=== PATIENT | male | born 1950 | race Caucasian/White ===

== ENCOUNTER 2021-07-03 20:02 | Inpatient (IN) | payer MEDICARE ==
[2021-07-03] MEDS ORDERED: SODIUM CHLORIDE 0.9% 1,000 ML IV STA (20:12)
--- NOTE | 2021-07-03 20:21 | ED ---
Syncope HPI - General Stated Complaint: Altered Mental Status Time Seen by Provider: 07/03/21 20:02 Source: patient, family, RN notes reviewed - History of Present Illness Initial Comments: 18-year-old male history of cardiomyopathy for which she's been treated at [facility] and was actually seen here today for who when he got home was noted by his to lean over to the left and become unconscious this lasted about 5 minutes with intermittent episodes of coming to. He denies any headache palpitations fevers chills nausea vomiting sweats no focal weakness. He does also denies ever having any episode like this before. Currently he is pain-free and symptom-free he was found by paramedics to be diaphoretic though awake alert oriented 3 he was incontinent of urine. Again the patient does not recall the incident. Patient's states he does have an abnormal EKG normally. MD Complaint: loss of consciousness - Related Data Home Medications Medication Instructions Recorded Confirmed Aspirin EC [Ecotrin Low Dose] 81 mg PO DAILY 07/03/21 07/03/21 Cholecalciferol [Vitamin D3 (25 25 mcg PO DAILY 07/03/21 07/03/21 Mcg = 1000 Iu)] Metoprolol Succinate [Toprol XL] 50 mg PO DAILY 07/03/21 07/03/21 Multivit-Min/FA/Lycopen/Lutein 1 tab PO DAILY 07/03/21 07/03/21 [Centrum Silver Men Tablet] [place]-3 Fatty Acids/Fish Oil [Fish 1 cap PO HS 07/03/21 07/03/21 Oil 1,000 mg Softgel] Omeprazole [PriLOSEC] 20 mg PO DAILY 07/03/21 07/03/21 Allergies Allergy/AdvReac Type Severity Reaction Status Date / Time No Known Allergies Allergy Verified 07/03/21 22:24 Review of Systems ROS Statement: Those systems with pertinent positive or pertinent negative responses have been documented in the HPI. ROS Other: All systems not noted in ROS Statement are negative. General Exam - General Exam Comments Initial Comments: This is a well-developed well-nourished awake alert oriented 3 male General appearance: alert, in no apparent distress Head exam: Present: atraumatic, normocephalic, normal inspection Eye exam: Present: normal appearance, PERRL, EOMI. Absent: scleral icterus, conjunctival injection, periorbital swelling ENT exam: Present: normal exam, mucous membranes moist Neck exam: Present: normal inspection, full ROM, other (No stridor JVD or bruits). Absent: tenderness, meningismus, lymphadenopathy Respiratory exam: Present: normal lung sounds bilaterally. Absent: respiratory distress, wheezes, rales, rhonchi, stridor Cardiovascular Exam: Present: regular rate, normal rhythm, normal heart sounds. Absent: systolic murmur, diastolic murmur, rubs, gallop, clicks GI/Abdominal exam: Present: soft, normal bowel sounds. Absent: distended, tenderness, guarding, rebound, rigid Extremities exam: Present: normal inspection, full ROM, normal capillary refill. Absent: tenderness, pedal edema, joint swelling, calf tenderness Back exam: Present: normal inspection Neurological exam: Present: alert, oriented X3, CN II-XII intact Psychiatric exam: Present: normal affect, normal mood Skin exam: Present: warm, dry, intact, normal color. Absent: rash Course Vital Signs 07/03/21 07/03/21 07/03/21 20:08 20:22 21:19 Temperature 98.0 F Pulse Rate 87 86 90 Respiratory 20 19 20 Rate Blood Pressure 118/83 113/74 108/68 O2 Sat by Pulse 97 98 98 Oximetry EKG Findings - EKG Results: EKG: interpreted by GUILLERMINA, sinus rhythm (Sinus rhythm rate 85. Interval 204 QRS duration 138 QT/QTC 407/449 LVH interventricular conduction delay old septal changes. No old EKG for comparison) Medical Decision Making - Medical Decision Making I did a long discussion with the patient and family were present patient is been asymptomatic since arrival other than he did state he felt somewhat dizzy when he was horizontal in the CAT scan machine. Patient will be admitted I did discuss the case with Dr. Fleming. Patient will be seen in consult by cardiology as well as neurology. - Lab Data Result diagrams: 07/03/21 20:15 07/03/21 20:15 Lab Results 07/03/21 07/03/21 07/03/21 Range/Units 20:15 20:15 20:15 WBC 9.2 (3.8-10.6) k/uL RBC 4.35 (4.30-5.90) m/uL Hgb 13.7 (13.0-17.5) gm/dL Hct 40.3 (39.0-53.0) % MCV 92.7 (80.0-100.0) fL MCH 31.4 (25.0-35.0) pg MCHC 33.9 (31.0-37.0) g/dL RDW 13.0 (11.5-15.5) % Plt Count 141 L (150-450) k/uL MPV 9.6 Neutrophils % 73 % Lymphocytes % 16 % Monocytes % 6 % Eosinophils % 2 % Basophils % 1 % Neutrophils # 6.7 (1.3-7.7) k/uL Lymphocytes # 1.4 (1.0-4.8) k/uL Monocytes # 0.6 (0-1.0) k/uL Eosinophils # 0.2 (0-0.7) k/uL Basophils # 0.1 (0-0.2) k/uL PT 10.3 (9.0-12.0) sec INR 0.9 (<1.2) APTT 22.0 (22.0-30.0) sec D-Dimer 1.09 H (<0.60) mg/L FEU Sodium 137 (137-145) mmol/L Potassium 4.0 (3.5-5.1) mmol/L Chloride 107 (98-107) mmol/L Carbon Dioxide 24 (22-30) mmol/L Anion Gap 6 mmol/L BUN 14 (9-20) mg/dL Creatinine 0.77 (0.66-1.25) mg/dL Est GFR (CKD-EPI)AfAm >90 (>60 ml/min/1.73 sqM) Est GFR (CKD-EPI)NonAf >90 (>60 ml/min/1.73 sqM) Glucose 125 H (74-99) mg/dL POC Glucose (mg/dL) (75-99) mg/dL POC Glu Quality Facilitator ID Calcium 8.0 L (8.4-10.2) mg/dL Magnesium 2.3 (1.6-2.3) mg/dL Total Bilirubin 0.7 (0.2-1.3) mg/dL AST 128 H (17-59) U/L ALT 100 H (4-49) U/L Alkaline Phosphatase 85 (38-126) U/L Troponin I (0.000-0.034) ng/mL NT-Pro-B Natriuret Pep pg/mL Total Protein 5.8 L (6.3-8.2) g/dL Albumin 3.2 L (3.5-5.0) g/dL TSH 3.250 (0.465-4.680) mIU/L 07/03/21 07/03/21 07/03/21 Range/Units 20:15 20:15 20:17 WBC (3.8-10.6) k/uL RBC (4.30-5.90) m/uL Hgb (13.0-17.5) gm/dL Hct (39.0-53.0) % MCV (80.0-100.0) fL MCH (25.0-35.0) pg MCHC (31.0-37.0) g/dL RDW (11.5-15.5) % Plt Count (150-450) k/uL MPV Neutrophils % % Lymphocytes % % Monocytes % % Eosinophils % % Basophils % % Neutrophils # (1.3-7.7) k/uL Lymphocytes # (1.0-4.8) k/uL Monocytes # (0-1.0) k/uL Eosinophils # (0-0.7) k/uL Basophils # (0-0.2) k/uL PT (9.0-12.0) sec INR (<1.2) APTT (22.0-30.0) sec D-Dimer (<0.60) mg/L FEU Sodium (137-145) mmol/L Potassium (3.5-5.1) mmol/L Chloride (98-107) mmol/L Carbon Dioxide (22-30) mmol/L Anion Gap mmol/L BUN (9-20) mg/dL Creatinine (0.66-1.25) mg/dL Est GFR (CKD-EPI)AfAm (>60 ml/min/1.73 sqM) Est GFR (CKD-EPI)NonAf (>60 ml/min/1.73 sqM) Glucose (74-99) mg/dL POC Glucose (mg/dL) 116 H (75-99) mg/dL POC Glu Quality Facilitator ID Rebekah Hair Calcium (8.4-10.2) mg/dL Magnesium (1.6-2.3) mg/dL Total Bilirubin (0.2-1.3) mg/dL AST (17-59) U/L ALT (4-49) U/L Alkaline Phosphatase (38-126) U/L Troponin I 0.038 H* (0.000-0.034) ng/mL NT-Pro-B Natriuret Pep 3860 pg/mL Total Protein (6.3-8.2) g/dL Albumin (3.5-5.0) g/dL TSH (0.465-4.680) mIU/L - Radiology Data Radiology results: report reviewed (No PE seen), image reviewed Critical Care Time Critical Care Time: Yes Total Critical Care Time: 31 Critical Care Time: Critical care time includes initial presentation with history physical labs x- rays multiple reevaluation the patient several discussed with family members. Discussion with the admitting physician admission orders documentation the above Disposition Clinical Impression: Syncope and collapse, Elevated d-dimer, Elevated troponin, Cardiomyopathy Disposition: ADMITTED IP TO THIS [facility] Condition: Fair Referrals: Nonstaff,Physician [Primary Care Provider] - 1-2 days
[2021-07-03 20:30] LABS: Glucose,Whole Blood 116 mg/dL (75-99)
[2021-07-03 20:34] LABS: Basophils # (A) 0.1 k/uL (0-0.2); Basophils % (A) 1 %; Eosinophils # (A) 0.2 k/uL (0-0.7); Eosinophils % (A) 2 %; HCT 40.3 % (39.0-53.0); HGB 13.7 gm/dL (13.0-17.5); Lymphocytes # (A) 1.4 k/uL (1.0-4.8); Lymphocytes % (A) 16 %; MCH 31.4 pg (25.0-35.0); MCHC 33.9 g/dL (31.0-37.0); MCV 92.7 fL (80.0-100.0); Mean Platelet Volume 9.6; Monocytes # (A) 0.6 k/uL (0-1.0); Monocytes % (A) 6 %; Neutrophils # (A) 6.7 k/uL (1.3-7.7); Neutrophils % (A) 73 %; Platelet Count 141 k/uL (150-450); RBC 4.35 m/uL (4.30-5.90); WBC 9.2 k/uL (3.8-10.6)
[2021-07-03 20:48] LABS: ALT 100 U/L (4-49); AST 128 U/L (17-59); African American GFR (CKD) >90 (>60 ml/min/1.73 sqM); Albumin 3.2 g/dL (3.5-5.0); Alkaline Phosphatase 85 U/L (38-126); Anion Gap 6 mmol/L; Blood Urea Nitrogen 14 mg/dL (9-20); Carbon Dioxide 24 mmol/L (22-30); Chloride 107 mmol/L (98-107); Glucose 125 mg/dL (74-99); Magnesium 2.3 mg/dL (1.6-2.3); Non-African American GFR(CKD) >90 (>60 ml/min/1.73 sqM); Sodium 137 mmol/L (137-145); Total Bilirubin 0.7 mg/dL (0.2-1.3); Total Protein 5.8 g/dL (6.3-8.2)
[2021-07-03 20:52] LABS: INR 0.9 (<1.2); Prothrombin Time 10.3 sec (9.0-12.0)
--- NOTE | 2021-07-03 20:54 | CT ---
EXAMINATION TYPE: CT brain wo con CT DLP: 1186.4 mGycm, Automated exposure control for dose reduction was used. DATE OF EXAM: 07/03/2021 8:41 PM COMPARISON: None. CLINICAL INDICATION:Male, 71 years old with history of syncope, TECHNIQUE: Brain: Multiple axial CT images of the brain were obtained without IV contrast. FINDINGS: Brain: Extra-axial spaces: No abnormal extra-axial fluid collections. Ventricular system: Within normal limits Cerebral parenchyma: No acute intraparenchymal hemorrhage or mass effect. The william-white junction is well differentiated. Cerebellum: Unremarkable. Mass effect: No evidence of midline shift. Intracranial vasculature: Atherosclerotic calcifications of the intracranial vessels. Soft tissues: Normal. Calvarium/osseous structures: No depressed skull fracture. Paranasal sinuses and mastoid air cells: Clear. Visualized orbits: Orbital contents are intact. IMPRESSION: No acute intracranial process.
--- NOTE | 2021-07-03 20:56 | XR ---
EXAMINATION TYPE: XR chest 2V DATE OF EXAM: 07/03/2021 8:42 PM COMPARISON:None TECHNIQUE: XR chest 2V Frontal and lateral views of the chest. CLINICAL INDICATION:Male, 71 years old with history of syncope; FINDINGS: Lungs/Pleura: No evidence of focal consolidation or pneumothorax. Blunting of the costophrenic angles is present. Pulmonary vascularity: Pulmonary vascular congestion. Heart/mediastinum: Cardiomediastinal silhouette is enlarged . Musculoskeletal: No acute osseous pathology. IMPRESSION: Cardiomegaly and mild pulmonary vascular congestion. Correlate with BNP for congestive heart failure.
--- NOTE | 2021-07-03 22:14 | CT ---
EXAMINATION TYPE: CT angio chest CT DLP: 500.6 mGycm, Automated exposure control for dose reduction was used. DATE OF EXAM: 07/03/2021 10:06 PM COMPARISON: Chest radiograph from same day. CLINICAL INDICATION:Male, 71 years old with history of E suspected, elevated d-dimer; elevated d-dime r TECHNIQUE/CONTRAST: CTA scan of the thorax is performed with IV Contrast, patient injected with 100 mL of Isovue 370, pul monary embolism protocol. MIP images are created and reviewed. FINDINGS: Pulmonary Artery: There is no evidence for a filling defect within the pulmonary vasculature to sugge st acute pulmonary embolism. The pulmonary artery is enlarged measuring 39 mm. Lungs/Pleura: No evidence of focal consolidation, pleural effusion or pneumothorax. Airway: Large airways are patent. Heart: The heart is moderately enlarged for size. Vasculature: No evidence of aortic aneurysm. Mediastinum: No gross evidence of adenopathy. Musculoskeletal: No acute osseous abnormalities Soft Tissues: Unremarkable. Lower neck: 11 mm thyroid nodule on the left. Upper Abdomen: No significant findings. IMPRESSION: 1. No evidence of pulmonary embolism. 2. Large pulmonary trunk which may seen in setting of pulmonary hypertension.
[2021-07-03] MEDS ORDERED: ONDANSETRON 4 MG/2 ML VIAL IVP PRN (22:29)
[2021-07-03] MEDS ORDERED: NALOXONE 0.4 MG/ML 1 ML VIAL IV PRN (22:29)
[2021-07-03] MEDS ORDERED: ACETAMINOPHEN TAB 325 MG TAB PO PRN (22:29)
[2021-07-03] MEDS ORDERED: HEPARIN SODIUM 1,000 UN/ML (10ML VL) IV ONE (22:33)
[2021-07-03] MEDS ORDERED: HEPARIN SOD,PORK IN 0.45% NACL 25,000 UNIT in 0.45% NACL 1 250ML.BAG IV SCH (22:45)
[2021-07-03] MEDS: SODIUM CHLORIDE 0.9% 1,000 ML IV SCH (22:56)
[2021-07-03 23:57] LABS: Partial Thromboplastin Time 56.7 sec (22.0-30.0); Prothrombin Time 11.1 sec (9.0-12.0)
[2021-07-04 00:25] LABS: Basophils % (A) 0 %; Eosinophils % (A) 0 %; HGB 14.3 gm/dL (13.0-17.5); Lymphocytes # (A) 0.9 k/uL (1.0-4.8); Lymphocytes % (A) 9 %; MCH 30.9 pg (25.0-35.0); MCHC 33.2 g/dL (31.0-37.0); Mean Platelet Volume 9.6; Monocytes # (A) 0.5 k/uL (0-1.0); Monocytes % (A) 5 %; Neutrophils # (A) 8.6 k/uL (1.3-7.7); Neutrophils % (A) 84 %; Platelet Count 141 k/uL (150-450); RBC 4.62 m/uL (4.30-5.90); RDW 12.9 % (11.5-15.5); WBC 10.3 k/uL (3.8-10.6)
--- NOTE | 2021-07-04 01:29 | P.HPIM ---
History of Present Illness H&P Date: 07/04/21 Patient is a 71-year-old male with a PMH of hypertrophic obstructive cardiomyopathy who presented to the emergency room after an episode of syncope at home. The patient reports that he was in his usual state of health and was sitting on his couch watching television with his when he suddenly felt lightheaded, and the next thing he knew he woke up on the ground. The episode was witnessed by the reported that he suddenly slumped over in the couch lost consciousness. She reports he appeared blue and pale, although would open his eyes intermittently and look at her and then closes eyes again and was unresponsive. She immediately called EMS who advised her to lay the patient on the ground. The patient did not suffer any falls or injuries as a result of his loss of consciousness. The episode lasted roughly 5 minutes. The patient experienced urinary incontinence. Denied tongue bites with no reported shacking movements. The patient denied experiencing prodromal chest discomfort, palpitations, nausea, or shortness of breath. No post ictal confusion was noted. As per the EMS, the patient was diaphoretic but was alert and oriented 3. Patient reported feeling back at his baseline at the time of interview. He denied any history of loss of consciousness. Patient reports that he was seen at [facility] cardiovascular surgery earlier today due to his worsening obstructive cardiomyopathy. At the time of interview, the patient denied experiencing chest discomfort, palpitations, shortness of breath, nausea, vomiting, diaphoresis, fever, chills, cough, abdominal pain, diarrhea. Laboratory evaluation was remarkable for platelet count 141, d-dimer 1.09, troponin 0.038, and a proBNP 3860. Chest CTA revealed no signs of pulmonary embolism. CT brain was unremarkable. Review of systems: Pertinent positives and negatives as discussed in HPI, a complete review of systems was performed and all other systems are negative. Physical examination: General: non toxic, no distress, appears at stated age, normal weight Derm: no unusual rashes/lesions no unusual ecchymoses, warm, dry Head: atraumatic, normocephalic, symmetric Eyes: EOMI, no lid lag, anicteric sclera, pupils equal round reactive to light ENT: Nose and ears atraumatic, no thrush, no pharyngeal erythema Neck: No thyromegaly, no cervical lymphadenopathy, trachea midline, supple Mouth: no lip lesion, mucus membranes moist Cardiovascular: S1S2 reg, systolic murmur appreciated, positive posterior tibial pulse bilateral, no edema, capillary refill less than 2 seconds Lungs: CTA bilateral, no rhonchi, no rales , no accessory muscle use Abdominal: soft, nontender to palpation, no guarding, no appreciable organomegaly, normal bowel sounds Ext: no gross muscle atrophy, muscle strength 5 out of 5 in all 4 extremities grossly, no contractures, Neuro: CN II-XI grossly intact, light touch intact all 4 extremities, finger to nose within normal limits, Psych: Alert, oriented, appropriate affect Assessment/plan Syncope, in setting of HOCM with elevated troponin -The case was discussed with cardiology on-call Dr. Rivas who recommended heparin infusion -Discussed the case with [facility] transfer eminence who noted that they are not currently accepting transfers -Low suspicion for seizure -Cardiac monitoring -Cardiology consulted -Trend troponin -Continue aspirin -Fall precautions Thrombocytopenia -Monitor for now DVT prophylaxis -Heparin infusion The patient is admitted with an anticipated greater than 2 midnight stay for evaluation of syncope CODE STATUS: Full Code Discussed with: Patient Anticipated discharge date: 2-[address]: Home Past Medical History Past Medical History: Hypertension, Osteoarthritis (OA) Additional Past Medical History / Comment(s): pt was at [facility] today with thickening left heart wall-Cardiomyopathy for the past 10 years approx. Last US was new finding, and they did a MRI. 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 with [facility] History of Any Multi-Drug Resistant Organisms: None Reported Past Surgical History: Hernia Repair Additional Past Surgical History / Comment(s): spinal fusion 1999, Past Psychological History: No Psychological Hx Reported Smoking Status: Former smoker Past Alcohol Use History: Daily, Occasional Past Drug Use History: None Reported - Past Family History Father Family Medical History: Hyperlipidemia Medications and Allergies Home Medications Medication Instructions Recorded Confirmed Type Aspirin EC [Ecotrin Low Dose] 81 mg PO DAILY 07/03/21 07/03/21 History Cholecalciferol [Vitamin D3 (25 25 mcg PO DAILY 07/03/21 07/03/21 History Mcg = 1000 Iu)] Metoprolol Succinate [Toprol XL] 50 mg PO DAILY 07/03/21 07/03/21 History Multivit-Min/FA/Lycopen/Lutein 1 tab PO DAILY 07/03/21 07/03/21 History [Centrum Silver Men Tablet] [place]-3 Fatty Acids/Fish Oil [Fish 1 cap PO HS 07/03/21 07/03/21 History Oil 1,000 mg Softgel] Omeprazole [PriLOSEC] 20 mg PO DAILY 07/03/21 07/03/21 History Allergies Allergy/AdvReac Type Severity Reaction Status Date / Time No Known Allergies Allergy Verified 07/03/21 22:24 Physical Exam Vitals: Vital Signs Temp Pulse Resp BP Pulse Ox 07/03/21 23:02 86 17 146/83 95 07/03/21 21:19 90 20 108/68 98 07/03/21 20:22 86 19 113/74 98 07/03/21 20:08 98.0 F 87 20 118/83 97 Intake and Output 07/03/21 07/03/21 07/04/21 14:59 22:59 06:59 Other: Weight 95.254 kg Results CBC & Chem 7: 07/03/21 23:23 07/03/21 20:15 Labs: Abnormal Lab Results - Last 24 Hours (Table) 07/03/21 07/03/21 07/03/21 Range/Units 20:15 20:15 20:15 Plt Count 141 L (150-450) k/uL Neutrophils # (1.3-7.7) k/uL Lymphocytes # (1.0-4.8) k/uL APTT (22.0-30.0) sec D-Dimer 1.09 H (<0.60) mg/L FEU Glucose 125 H (74-99) mg/dL POC Glucose (mg/dL) (75-99) mg/dL Calcium 8.0 L (8.4-10.2) mg/dL AST 128 H (17-59) U/L ALT 100 H (4-49) U/L Troponin I (0.000-0.034) ng/mL Total Protein 5.8 L (6.3-8.2) g/dL Albumin 3.2 L (3.5-5.0) g/dL 07/03/21 07/03/21 07/03/21 Range/Units 20:15 20:17 23:23 Plt Count 141 L (150-450) k/uL Neutrophils # 8.6 H (1.3-7.7) k/uL Lymphocytes # 0.9 L (1.0-4.8) k/uL APTT (22.0-30.0) sec D-Dimer (<0.60) mg/L FEU Glucose (74-99) mg/dL POC Glucose (mg/dL) 116 H (75-99) mg/dL Calcium (8.4-10.2) mg/dL AST (17-59) U/L ALT (4-49) U/L Troponin I 0.038 H* (0.000-0.034) ng/mL Total Protein (6.3-8.2) g/dL Albumin (3.5-5.0) g/dL 07/03/21 07/03/21 Range/Units 23:23 23:23 Plt Count (150-450) k/uL Neutrophils # (1.3-7.7) k/uL Lymphocytes # (1.0-4.8) k/uL APTT 56.7 H (22.0-30.0) sec D-Dimer (<0.60) mg/L FEU Glucose (74-99) mg/dL POC Glucose (mg/dL) (75-99) mg/dL Calcium (8.4-10.2) mg/dL AST (17-59) U/L ALT (4-49) U/L Troponin I 0.164 H* (0.000-0.034) ng/mL Total Protein (6.3-8.2) g/dL Albumin (3.5-5.0) g/dL
[2021-07-04 04:50] LABS: Basophils # (A) 0.1 k/uL (0-0.2); Basophils % (A) 1 %; Eosinophils # (A) 0.1 k/uL (0-0.7); Eosinophils % (A) 1 %; HCT 40.1 % (39.0-53.0); HGB 13.3 gm/dL (13.0-17.5); Lymphocytes # (A) 1.2 k/uL (1.0-4.8); Lymphocytes % (A) 16 %; MCH 30.9 pg (25.0-35.0); MCHC 33.1 g/dL (31.0-37.0); MCV 93.4 fL (80.0-100.0); Mean Platelet Volume 9.5; Monocytes # (A) 0.5 k/uL (0-1.0); Monocytes % (A) 7 %; Neutrophils # (A) 5.4 k/uL (1.3-7.7); Neutrophils % (A) 73 %; Platelet Count 132 k/uL (150-450); WBC 7.5 k/uL (3.8-10.6)
[2021-07-04 05:00] LABS: INR 0.9 (<1.2); Prothrombin Time 10.3 sec (9.0-12.0)
[2021-07-04] MEDS: HEPARIN SODIUM 1,000 UN/ML (10ML VL) IV PRN ×2 (05:34→12:36)
[2021-07-04] MEDS: PANTOPRAZOLE 40 MG TABLET PO SCH (06:13)
[2021-07-04 06:34] LABS: Appearance,Urine Clear (Clear); Bilirubin,Urine Negative (Negative); Blood,Urine Negative (Negative); Color,Urine Yellow; Glucose,Urine (UA) Negative (Negative); Ketones,Urine Trace (Negative); Leukocyte Esterase,Urine Negative (Negative); Nitrite,Urine Negative (Negative); Protein,Urine Negative (Negative); Specific Gravity,Urine 1.027 (1.001-1.035); Urobilinogen,Urine <2.0 mg/dL (<2.0)
[2021-07-04] MEDS: MULTIVITAMINS, THERA 1 EACH TAB PO SCH (08:31)
[2021-07-04] MEDS: ASPIRIN 81 MG PO SCH (08:31)
[2021-07-04] MEDS: CHOLECALCIFEROL 25 MCG (1000 IU) TABLET PO SCH (08:31)
[2021-07-04] MEDS: SODIUM CHLORIDE 0.9% 1,000 ML IV SCH (08:34)
[2021-07-04] MEDS ORDERED: METOPROLOL SUCCINATE (ER) 50 MG TAB.ER.24H PO SCH (09:00)
--- NOTE | 2021-07-04 13:15 | US ---
EXAMINATION TYPE: US carotid duplex BILAT DATE OF EXAM: 07/04/2021 COMPARISON: NONE CLINICAL HISTORY: syncope. Syncope EXAM MEASUREMENTS: RIGHT: Peak Systolic Velocity (PSV) cm/sec ----- Right CCA: 64.7 ----- Right ICA: 83.4 ----- Right ECA: 103.4 ICA/CCA ratio: 1.3 RIGHT: End Diastole cm/sec ----- Right CCA: 17.5 ----- Right ICA: 31.8 ----- Right ECA: 15.4 LEFT: Peak Systolic Velocity (PSV) cm/sec ----- Left CCA: 85.3 ----- Left ICA: 99.5 ----- Left ECA: 96.9 ICA/CCA ratio: 1.2 LEFT: End Diastole cm/sec ----- Left CCA: 25.8 ----- Left ICA: 40.0 ----- Left ECA: 12.8 VERTEBRALS (direction of flow): Right Vertebral: Antegrade Left Vertebral: Antegrade Rhythm: Normal No significant stenosis seen IMPRESSION: Less than 50% stenosis of the bilateral carotid bifurcations. Criteria for Assigning % of Stenosis / Diameter reduction (Estimation based on the indirect measurements of the internal carotid artery velocities (ICA PSV). 1. Normal (no stenosis)=ICA PSV < 125 cm/s: ratio < 2.0: ICA EDV<40 cm/s. 2. Less than 50% stenosis=ICA PSV < 125 cm/s: ratio < 2.0: ICA EDV<40 cm/s. 3. 50 to 69% stenosis=ICA PSV of 125 to 230 cm/s: ration 2.0 ? 4.0: ICA EDV 40-100 cm/s. 4. Greater than 70% stenosis to near occlusion= ICA PSV > 230 cm/s: ratio > 4.0: ICA EDV > 100 cm/s. 5. Near occlusion= ICA PSV velocities may be low or undetectable: variable ratio and ICA EDV. 6. Total occlusion=unable to detect flow.
[2021-07-04] MEDS ORDERED: METOPROLOL SUCCINATE (ER) 50 MG TAB.ER.24H PO STA (15:46)
--- NOTE | 2021-07-04 15:46 | P.CRDCN ---
History of Present Illness History of present illness: HISTORY OF PRESENTING ILLNESS Patient is a pleasant 71-year-old male with history of hypertrophic obstructive cardiomyopathy diagnosed approximately 12 years ago, normal coronary arteries by heart catheterization 12 years ago per patient, syncope. Patient previously followed with Dr. Aguayo in [facility] however then started following with a new doctor. He was initially diagnosed 12 years ago and had workup at the time with normal heart catheterization. He did have screening workup with an echo performed approximately a few months ago which showed worsening gradient apparently and therefore recommendation for cardiac MRI which was performed to afford and again showed worsening of the degree of obstruction. Therefore he was recommended to see a surgeon from [facility] which she did 07/03. Surgeon discussed myomectomy however also [facility] medical therapy with a "new drug", likely mavacamtem. Patient drove home and then was sitting on his couch watching TV when he suddenly started feeling lightheaded and apparently became blue and unresponsive and therefore EMS was called. Patient apparently did not recall any events until he woke up with EMS around him. He denies any preceding chest pain, pressure, palpitations. He denies any dehydration or any changes to medications. He initially denied any recent symptoms however on further discussion with the son he has had a number of episodes where he will suddenly become lightheaded. No prior similar episode of syncope. EKG shows normal sinus rhythm with LVH with nonspecific ST abnormalities. Echo performed which shows EF 60% with LVOT gradient with a mean gradient >56. Troponin mildly elevated 0.03, 0.16, 0.09. ProBNP elevated at 3860. REVIEW OF SYSTEMS At the time of my exam: CONSTITUTIONAL: Denies fever or chills. CARDIOVASCULAR: Denies chest pain, shortness of breath, orthopnea, PND or palpitations. RESPIRATORY: Denies cough. GASTROINTESTINAL: Denies abdominal pain, diarrhea, constipation, nausea or vomiting. MUSCULOSKELETAL: Denies myalgias. NEUROLOGIC: Denies numbness, tingling or weakness. ENDOCRINE: Denies fatigue, weight change, polydipsia or polyurina. GENITOURINARY: Denies burning, hematuria or urgency with micturation. HEMATOLOGIC: Denies history of anemia or bleeding. PHYSICAL EXAMINATION Vital signs reviewed. CONSTITUTIONAL: No apparent distress. HEENT: Head is normocephalic. Pupils are equal, round. Sclerae anicteric. Mucous membranes of the mouth are moist. No JVD. No carotid bruit. CHEST EXAMINATION: Lungs are clear to auscultation. No chest wall tenderness is noted on palpation or with deep breathing. HEART EXAMINATION: Regular rate and rhythm. S1, S2 heard. +3/6 systolic murmur, no gallops or rub. ABDOMEN: Soft, nontender. Positive bowel sounds. EXTREMITIES: 2+ peripheral pulses, no lower extremity edema and no calf tenderness. NEUROLOGIC EXAMINATION: Patient is awake, alert and oriented x3. ASSESSMENT 1. Syncope appears related to hypertrophic obstructive cardiomyopathy. Less likely arrhythmogenic given progression of symptoms and progression of LVOT gradient 2. Hypertrophic obstructive cardiomyopathy with mean gradient 56mmHg 3. Increasing episodes of lightheadedness last few months 4. Elevated troponin related to hypertrophic cardiomyopathy, syncope, outflow obstruction. Do not suspect ACS with normal coronary angiogram 12 years ago and no angina symptoms. 5. LVOT obstruction with mean gradient 56mmHg PLAN Patient's symptoms all appear related to his LVOT obstruction and hypertrophic cardiomyopathy. Unexplained syncope is an indication for AICD however syncope appears related to LVOT obstruction. He has been an workup for possible myomectomy at [facility]. We will increase his medications, increase Toprol to 100 mg daily as well as add disopyramide 100mg TID. Monitor QTc tomorrow. We will attempt to place patient on increased medical therapy and if able to tolerate, likely DC home with outpt followup at [facility]. Patient scheduled for followup with [facility] child care teacher for possible addition of Mavacamten which does have newer data for HOCM. Past Medical History Past Medical History: Hypertension, Osteoarthritis (OA) Additional Past Medical History / Comment(s): pt was at [facility] today with thickening left heart wall-Cardiomyopathy for the past 10 years approx. Last US was new finding, and they did a MRI. Pt is supposed to follow with child care teacher with [facility] History of Any Multi-Drug Resistant Organisms: None Reported Past Surgical History: Hernia Repair Additional Past Surgical History / Comment(s): spinal fusion 1999 Past Psychological History: No Psychological Hx Reported Smoking Status: Former smoker Past Alcohol Use History: Daily, Occasional Past Drug Use History: None Reported - Past Family History Father Family Medical History: Hyperlipidemia Medications and Allergies Home Medications Medication Instructions Recorded Confirmed Type Aspirin EC [Ecotrin Low Dose] 81 mg PO DAILY 07/03/21 07/03/21 History Cholecalciferol [Vitamin D3 (25 25 mcg PO DAILY 07/03/21 07/03/21 History Mcg = 1000 Iu)] Metoprolol Succinate [Toprol XL] 50 mg PO DAILY 07/03/21 07/03/21 History Multivit-Min/FA/Lycopen/Lutein 1 tab PO DAILY 07/03/21 07/03/21 History [Centrum Silver Men Tablet] [place]-3 Fatty Acids/Fish Oil [Fish 1 cap PO HS 07/03/21 07/03/21 History Oil 1,000 mg Softgel] Omeprazole [PriLOSEC] 20 mg PO DAILY 07/03/21 07/03/21 History Allergies Allergy/AdvReac Type Severity Reaction Status Date / Time No Known Allergies Allergy Verified 07/03/21 22:24 Physical Exam Vitals: Vital Signs Temp Pulse Pulse Resp BP BP Pulse Ox 07/04/21 12:00 97.8 F 71 16 137/81 96 07/04/21 08:30 97.8 F 73 16 132/77 97 07/04/21 04:00 73 16 118/70 96 07/04/21 02:28 97.7 F 81 18 144/92 97 07/04/21 01:08 97.5 F L 78 20 123/74 98 07/03/21 23:02 86 17 146/83 95 07/03/21 21:19 90 20 108/68 98 07/03/21 20:22 86 19 113/74 98 07/03/21 20:08 98.0 F 87 20 118/83 97 Intake and Output 07/04/21 07/04/21 07/04/21 06:59 14:59 22:59 Intake Total 66 90.428 Balance 66 90.428 Intake: Intake, IV Titration 66 90.428 Amount Heparin Sod,Pork in 0.45% 66 90.428 NaCl 25,000 unit In 0.45 % NaCl 1 250ml.bag @ 10. 4982 UNITS/KG/HR 10 mls/ hr IV .Q24H [facility] Rx#: [id number] Other: Voiding Method Urinal # Voids 1 3 Weight 94.2 kg Results 07/04/21 04:06 07/03/21 20:15 Cardiac Enzymes 07/03/21 07/03/21 07/03/21 Range/Units 20:15 20:15 23:23 AST 128 H (17-59) U/L Troponin I 0.038 H* 0.164 H* (0.000-0.034) ng/mL 07/04/21 Range/Units 04:06 AST (17-59) U/L Troponin I 0.093 H* (0.000-0.034) ng/mL Coagulation 07/03/21 07/03/21 07/04/21 Range/Units 20:15 23:23 04:06 PT 10.3 11.1 10.3 (9.0-12.0) sec APTT 22.0 56.7 H 30.0 (22.0-30.0) sec 07/04/21 Range/Units 11:41 PT (9.0-12.0) sec APTT 35.8 H (22.0-30.0) sec CBC 07/03/21 07/03/21 07/04/21 Range/Units 20:15 23:23 04:06 WBC 9.2 10.3 7.5 (3.8-10.6) k/uL RBC 4.35 4.62 4.30 (4.30-5.90) m/uL Hgb 13.7 14.3 13.3 (13.0-17.5) gm/dL Hct 40.3 43.0 40.1 (39.0-53.0) % Plt Count 141 L 141 L 132 L (150-450) k/uL Comprehensive Metabolic Panel 07/03/21 Range/Units 20:15 Sodium 137 (137-145) mmol/L Potassium 4.0 (3.5-5.1) mmol/L Chloride 107 (98-107) mmol/L Carbon Dioxide 24 (22-30) mmol/L BUN 14 (9-20) mg/dL Creatinine 0.77 (0.66-1.25) mg/dL Glucose 125 H (74-99) mg/dL Calcium 8.0 L (8.4-10.2) mg/dL AST 128 H (17-59) U/L ALT 100 H (4-49) U/L Alkaline Phosphatase 85 (38-126) U/L Total Protein 5.8 L (6.3-8.2) g/dL Albumin 3.2 L (3.5-5.0) g/dL Current Medications Generic Name Dose Route Start Last Admin Trade Name Freq PRN Reason Stop Dose Admin Acetaminophen 650 mg 07/03/21 22:29 Acetaminophen Tab 325 Mg Tab PO Q6HR PRN Mild Pain or Fever > 100.5 Aspirin 81 mg 07/04/21 09:00 07/04/21 08:31 Aspirin 81 Mg PO 81 mg DAILY SCOTT Administration Cholecalciferol 25 mcg 07/04/21 09:00 07/04/21 08:31 Cholecalciferol 25 Mcg (1000 Iu) Tablet PO 25 mcg DAILY SCOTT Administration Sodium Chloride 1,000 mls @ 75 mls/hr 07/03/21 22:30 07/04/21 08:34 Saline 0.9% IV 75 mls/hr .[id number] SCOTT Administration Metoprolol Succinate 50 mg 07/04/21 09:00 07/04/21 08:31 Metoprolol Succinate (Er) 50 Mg Tab.Er.24h PO 50 mg DAILY SCOTT Administration Multivitamins 1 each 07/04/21 09:00 07/04/21 08:31 Multivitamins, Thera 1 Each Tab PO 1 each DAILY SCOTT Administration Naloxone HCl 0.2 mg 07/03/21 22:29 Naloxone 0.4 Mg/Ml 1 Ml Vial IV Q2M PRN Opioid Reversal Ondansetron HCl 4 mg 07/03/21 22:29 Ondansetron 4 Mg/2 Ml Vial IVP Q8HR PRN Nausea And Vomiting Pantoprazole Sodium 40 mg 07/04/21 07:30 07/04/21 06:13 Pantoprazole 40 Mg Tablet PO 40 mg [id number] SCOTT Administration Intake and Output 07/04/21 07/04/21 07/04/21 06:59 14:59 22:59 Intake Total 66 90.428 Balance 66 90.428 Intake: Intake, IV Titration 66 90.428 Amount Heparin Sod,Pork in 0.45% 66 90.428 NaCl 25,000 unit In 0.45 % NaCl 1 250ml.bag @ 10. 4982 UNITS/KG/HR 10 mls/ hr IV .Q24H [facility] Rx#: [id number] Other: Voiding Method Urinal # Voids 1 3 Weight 94.2 kg 07/04/21 04:06 07/03/21 20:15
[2021-07-04] MEDS ORDERED: DISOPYRAMIDE 100 MG PO SCH (16:00)
[2021-07-04 16:12] LABS: Glucose,Whole Blood 125 mg/dL (75-99)
[2021-07-04] MEDS ORDERED: AMIODARONE IN DEXTROSE,ISO-OSM 150 MG/100 ML PLAST..BAG IV ONE (16:29)
[2021-07-04] MEDS ORDERED: DEXTROSE 5% IN WATER 100 ML with AMIODARONE 150 MG IV ONE (16:40)
[2021-07-04] MEDS ORDERED: AMIODARONE 360 MG in DEXTROSE 5% IN WATER 200 ML IV ONE ×2 (16:50)
--- NOTE | 2021-07-04 17:23 | P.CNNES ---
History of Present Illness Consult date: 07/04/21 Requesting physician: Cj Tanner Reason for Consult: Syncope History of Present Illness: This is a telemedicine neurology consultation performed today on 07/04/2021. Patient is a 71-year-old male came to the hospital by ambulance yesterday at 8:02 PM. Patient states that "I passed out watching TV". Patient states that he does remember telling his while watching TV "oh my God I am dizzy" and within a few seconds he passed out, and the next thing he remembers is waking up on the floor, and EMS people around him. Per patient's , he was out for just a few seconds, open the eyes and was opening his mouth very wide repetitively, although not jerking. She did not notice any convulsion, or seizure-like activity. No tongue bite although he didn't lose control of urine. He appeared real pale and was very sweaty at that time. it took almost 10 minutes for EMS to arrive. According to the EMS flow sheet, when they arrived patient was laying on the floor, slow to respond to questions. stated that he passed out also find had to get him to ground and open his airway. He still did not respond to her when she got him to the floor. Patient started to respond after a few minutes. He was sweaty and confused. Patient was at [facility] the same day for hypertropic obstructive cardiomyopathy. No new medication was added. Patient never has any history of syncopal episodes. Patient's denied any seizure activity. Stroke scale was negative. Patient's mentioned that his face was frozen when he came to. There was no facial droop or slurred speech. Patient denied chest pain. Patient was given aspirin 324 mg. Patient denied dizziness, headache or shortness of breath. Patient's blood pressure was 134/82, pulse 81, respirations 16 and saturation 96%. EKG shows atrial fibrillation. Patient had a CT of the head which revealed no acute intracranial process. CTA of the chest showed no evidence of pulmonary embolism. Large pulmonary trunk which may seen in setting of pulmonary hypertension. EKG shows sinus rhythm, intraventricular conduction delay. Chest x-ray showed cardiomegaly and mild pulmonary vascular congestion. Correlate with BNP for congestive heart failure. Blood test shows normal CBC PT/PTT, Chem-7. AST is elevated 128, ALP 100. Troponin is mildly elevated. TSH is normal. UA negative, coronal virus PCR negative. Patient at present feels fine. Patient has never passed out before. He has diagnosis of hypertrophic obstructive cardio myopathy for 10 years. No previous history of atrial fibrillation. Patient does take aspirin 81 mg daily for 10 years. No history of seizure or head trauma. He is a nonsmoker. He smoked 1 pack per day for 20 years, quit in 1989. Denies diabetes. Review of Systems As mentioned above in detail. All other 14 points of review of systems reviewed unremarkable. Past Medical History Past Medical History: Hypertension, Osteoarthritis (OA) Additional Past Medical History / Comment(s): pt was at [facility] today with thickening left heart wall-Cardiomyopathy for the past 10 years approx. Last US was new finding, and they did a MRI. Pt is supposed to follow with dip guider stoves with [facility] History of Any Multi-Drug Resistant Organisms: None Reported Past Surgical History: Hernia Repair Additional Past Surgical History / Comment(s): spinal fusion 1999 Past Psychological History: No Psychological Hx Reported Smoking Status: Former smoker Past Alcohol Use History: Daily, Occasional Past Drug Use History: None Reported - Past Family History Father Family Medical History: Hyperlipidemia Medications and Allergies Home Medications Medication Instructions Recorded Confirmed Type Aspirin EC [Ecotrin Low Dose] 81 mg PO DAILY 07/03/21 07/03/21 History Cholecalciferol [Vitamin D3 (25 25 mcg PO DAILY 07/03/21 07/03/21 History Mcg = 1000 Iu)] Metoprolol Succinate [Toprol XL] 50 mg PO DAILY 07/03/21 07/03/21 History Multivit-Min/FA/Lycopen/Lutein 1 tab PO DAILY 07/03/21 07/03/21 History [Centrum Silver Men Tablet] [place]-3 Fatty Acids/Fish Oil [Fish 1 cap PO HS 07/03/21 07/03/21 History Oil 1,000 mg Softgel] Omeprazole [PriLOSEC] 20 mg PO DAILY 07/03/21 07/03/21 History Allergies Allergy/AdvReac Type Severity Reaction Status Date / Time No Known Allergies Allergy Verified 07/03/21 22:24 Physical Examination - Vital Signs Vital Signs: Vital Signs Temp Pulse Pulse Resp BP BP Pulse Ox 07/04/21 08:30 97.8 F 73 16 132/77 97 07/04/21 04:00 73 16 118/70 96 07/04/21 02:28 97.7 F 81 18 144/92 97 07/04/21 01:08 97.5 F L 78 20 123/74 98 07/03/21 23:02 86 17 146/83 95 07/03/21 21:19 90 20 108/68 98 07/03/21 20:22 86 19 113/74 98 07/03/21 20:08 98.0 F 87 20 118/83 97 Intake and Output 07/03/21 07/04/21 07/04/21 22:59 06:59 14:59 Intake Total 66 Balance 66 Intake: Intake, IV Titration 66 Amount Heparin Sod,Pork in 0.45% 66 NaCl 25,000 unit In 0.45 % NaCl 1 250ml.bag @ 10. 4982 UNITS/KG/HR 10 mls/ hr IV .Q24H [facility] Rx#: [id number] Other: Voiding Method Urinal # Voids 1 3 Weight 95.254 kg 94.2 kg Patient is an elderly male, in no acute distress. Patient is alert, awake oriented to time place and person. Speech and language functions are normal. Attention, concentration and fund of knowledge is adequate. On cranial examination, pupils are round and reacting to light, visual yost are full on confrontation, extraocular muscles are intact with no nystagmus. Face is symmetric, tongue protrudes to the midline. Palatal elevation and sensation normal, hearing and shoulder shrug normal, facial sensation normal. Shoulder shrug normal. On muscle strength testing, there is no pronator drift and the strength is normal in arms and legs distally and proximally. Deep tendon reflexes are 1 in the upper limbs, trace at the knees, 0 ankles and plantars are withdrawal. Sensory to touch is equal with no neglect. Cerebellar function showed no ataxia for [id number] testing. No dysdiadochokinesia. Tone and bulk of muscles normal. Gait not checked. On general examination, there is no carotid bruit or murmur, S1-S2 audible. Abdomen is soft nontender. Chest is clear. Peripheral pulses are present. No edema. Results - Laboratory Findings CBC and BMP: 07/04/21 04:06 07/03/21 20:15 Abnormal Lab Findings: Abnormal Labs 07/03/21 07/03/21 07/03/21 20:15 20:15 20:15 Plt Count 141 L Neutrophils # Lymphocytes # APTT D-Dimer 1.09 H Glucose 125 H POC Glucose (mg/dL) Calcium 8.0 L AST 128 H ALT 100 H Troponin I Total Protein 5.8 L Albumin 3.2 L Urine Ketones 07/03/21 07/03/21 07/03/21 20:15 20:17 23:23 Plt Count 141 L Neutrophils # 8.6 H Lymphocytes # 0.9 L APTT D-Dimer Glucose POC Glucose (mg/dL) 116 H Calcium AST ALT Troponin I 0.038 H* Total Protein Albumin Urine Ketones 07/03/21 07/03/21 07/04/21 23:23 23:23 04:06 Plt Count Neutrophils # Lymphocytes # APTT 56.7 H D-Dimer Glucose POC Glucose (mg/dL) Calcium AST ALT Troponin I 0.164 H* 0.093 H* Total Protein Albumin Urine Ketones 07/04/21 07/04/21 04:06 06:15 Plt Count 132 L Neutrophils # Lymphocytes # APTT D-Dimer Glucose POC Glucose (mg/dL) Calcium AST ALT Troponin I Total Protein Albumin Urine Ketones Trace H Assessment and Plan Assessment: * Syncopal spell, likely due to history of hypertrophic obstructive cardiomyopathy versus arrhythmia. Seizure, less likely, no convulsive activity was noted. * History of hypertrophic obstructive cardiomyopathy * New onset atrial fibrillation documented by EMS. * Hyperlipidemia * Hypertension Plan: * We will perform carotid Doppler to rule out carotid stenosis. It was comp leted, revealed less than 50% stenosis bilateral ICA. Antegrade flow in both vertebral arteries. * No other neurological workup indicated. * Cardiology following. * Regarding new onset atrial fibrillation, would defer to IM and cardiology, regarding need for anticoagulation. * Neurology will sign off. Please reconsult neurology if any other concerns.
[2021-07-04] MEDS ORDERED: NON FORMULARY DRUG (Omega-3 Fatty Acids/Fish Oil [Fish Oil 1,000 Mg Softgel] 1 EACH Capsul PO SCH (21:00)
[2021-07-04] MEDS: AMIODARONE 450 MG in DEXTROSE 5% IN WATER 250 ML IV SCH ×2 (22:43)
[2021-07-05] MEDS: SODIUM CHLORIDE 0.9% 1,000 ML IV SCH ×3 (03:20→23:49)
[2021-07-05] MEDS: PANTOPRAZOLE 40 MG TABLET PO SCH (06:36)
[2021-07-05 08:20] LABS: Basophils # (A) 0.1 k/uL (0-0.2); Basophils % (A) 1 %; Eosinophils # (A) 0.1 k/uL (0-0.7); Eosinophils % (A) 1 %; HCT 42.2 % (39.0-53.0); Lymphocytes % (A) 10 %; MCH 31.2 pg (25.0-35.0); MCHC 33.2 g/dL (31.0-37.0); MCV 94.2 fL (80.0-100.0); Mean Platelet Volume 8.6; Monocytes # (A) 0.5 k/uL (0-1.0); Monocytes % (A) 5 %; Neutrophils % (A) 82 %; Platelet Count 202 k/uL (150-450); RBC 4.48 m/uL (4.30-5.90); RDW 13.2 % (11.5-15.5); WBC 9.7 k/uL (3.8-10.6)
[2021-07-05] MEDS: METOPROLOL SUCCINATE (ER) 100 MG TAB.ER.24H PO SCH (08:32)
[2021-07-05] MEDS: MULTIVITAMINS, THERA 1 EACH TAB PO SCH (08:32)
[2021-07-05] MEDS: CHOLECALCIFEROL 25 MCG (1000 IU) TABLET PO SCH (08:32)
[2021-07-05] MEDS: ASPIRIN 81 MG PO SCH ×2 (08:32→16:54)
--- NOTE | 2021-07-05 08:38 | ECHOF ---
Referral Reason:Cardiomyopathy, syncope MEASUREMENTS -------- HEIGHT: 180.3 cm WEIGHT: 93.9 kg BP: 118/70 RVIDd: 3.3 cm (< 3.3) IVSd: 2.2 cm (0.6 - 1.1) LVIDd: 5.0 cm (3.9 - 5.3) LVPWd: 2.1 cm (0.6 - 1.1) IVSs: 2.4 cm LVIDs: 3.2 cm LVPWs: 2.8 cm LA Diam: 3.9 cm (2.7 - 3.8) LAESV Index (A-L): 57.62 ml/m Ao Diam: 3.8 cm (2.0 - 3.7) AV Cusp: 3.0 cm (1.5 - 2.6) MV EXCURSION: 16.790 mm (> 18.000) MV EF SLOPE: 20 mm/s (70 - 150) EPSS: 0.4 cm MV E Nick: 1.01 m/s MV DecT: 326 ms MV A Nick: 0.99 m/s MV E/A Ratio: 1.02 AV maxP.53 mmHg AV meanP.83 mmHg AR PHT: 910 ms RAP: 5.00 mmHg RVSP: 39.01 mmHg FINDINGS -------- Sinus rhythm. This was a technically adequate study. The left ventricular size is normal. There is severe concentric left ventricular hypertrophy. Lef t ventricular systolic function is hyperdynamic with an estimated EF of >70%. DALTON present The right ventricle is mildly enlarged. LA is severely dilated >40 ml/m2 The right atrium is normal in size. Interatrial and interventricular septum intact. The aortic valve is trileaflet and appears structurally normal. There is mild aortic regurgitation. LVOT obstruction with mean gradient of 41 mm/Hg and max gradient of 91 mmHg The mitral valve leaflets are mildly thickened. There is trace to mild mitral regurgitation. Mild tricuspid regurgitation present. There is mild pulmonary hypertension. The right ventricular systolic pressure, as measured by Doppler, is 39.01mmHg. The pulmonic valve was not well visualized. The aortic root is dilated measuring 3.8cm. Normal inferior vena cava with normal inspiratory collapse consistent with estimated right atrial pre ssure of 5 mmHg. There is no pericardial effusion. CONCLUSIONS -------- 1. The left ventricular size is normal. 2. There is severe concentric left ventricular hypertrophy. 3. Left ventricular systolic function is hyperdynamic with an estimated EF of >70%. 4. DALTON present 5. The right ventricle is mildly enlarged. 6. LA is severely dilated >40 ml/m2 7. The aortic valve is trileaflet and appears structurally normal. 8. There is mild aortic regurgitation. 9. LVOT obstruction with mean gradient of 41 mm/Hg and max gradient of 91 mmHg 10. The mitral valve leaflets are mildly thickened. 11. There is trace to mild mitral regurgitation. 12. Mild tricuspid regurgitation present. 13. There is mild pulmonary hypertension. 14. The right ventricular systolic pressure, as measured by Doppler, is 39.01mmHg. 15. The aortic root is dilated measuring 3.8cm. 16. There is no pericardial effusion. [employer]: Yazmin Orozco RDCS
--- NOTE | 2021-07-05 09:20 | P.PN ---
Subjective Progress Note Date: 07/05/21 Principal diagnosis: Patient is a 71-year-old male with a PMH of hypertrophic obstructive cardiomyopathy who presented to the emergency room after an episode of syncope at home. The patient reports that he was in his usual state of health and was sitting on his couch watching television with his when he suddenly felt lightheaded, and the next thing he knew he woke up on the ground. The episode was witnessed by the reported that he suddenly slumped over in the couch lost consciousness. She reports he appeared blue and pale, although would open his eyes intermittently and look at her and then closes eyes again and was unresponsive. She immediately called EMS who advised her to lay the patient on the ground. The patient did not suffer any falls or injuries as a result of his loss of consciousness. The episode lasted roughly 5 minutes. The patient experienced urinary incontinence. Denied tongue bites with no reported shacking movements. The patient denied experiencing prodromal chest discomfort, palpitations, nausea, or shortness of breath. No post ictal confusion was noted. As per the EMS, the patient was diaphoretic but was alert and oriented 3. Patient reported feeling back at his baseline at the time of interview. He denied any history of loss of consciousness. Patient reports that he was seen at [facility] cardiovascular surgery earlier today due to his worsening obstructive cardiomyopathy. At the time of interview, the patient denied experiencing chest discomfort, palpitations, shortness of breath, nausea, vomiting, diaphoresis, fever, chills, cough, abdominal pain, diarrhea. Laboratory evaluation was remarkable for platelet count 141, d-dimer 1.09, troponin 0.038, and a proBNP 3860. Chest CTA revealed no signs of pulmonary embolism. CT brain was unremarkable. Interval history: Patient is an eczematous type. He denies any chest pain or shortness of breath. Patient another episode of syncope in the hospital around 4 PM yesterday. Telemetry showed evidence of sustained V. tach. Patient was started on IV amiodarone per cardiology. He denies any chest pain shortness breath today Objective - Vital Signs Vital signs: Vital Signs Temp 98.1 F 07/04/21 20:00 Pulse 75 07/05/21 03:51 Resp 17 07/05/21 03:51 BP 157/85 07/05/21 03:51 Pulse Ox 95 07/05/21 03:51 Intake & Output 07/04/21 07/05/21 07/05/21 18:59 06:59 18:59 Intake Total 90.428 300 Output Total 1 1400 Balance 89.428 -1100 Intake: Intake, IV Titration 90.428 Amount Heparin Sod,Pork in 0.45% 90.428 NaCl 25,000 unit In 0.45 % NaCl 1 250ml.bag @ 10. 4982 UNITS/KG/HR 10 mls/ hr IV .Q24H [facility] Rx#: [id number] Oral 300 Output: Urine 1 1400 Other: Voiding Method Urinal # Voids 3 - Exam General: non toxic, no distress, appears at stated age Derm: warm, dry Head: atraumatic, normocephalic, symmetric Eyes: EOMI, no lid lag, anicteric sclera Mouth: no lip lesion, mucus membranes moist Cardiovascular: S1S2 reg, no murmur, positive posterior tibial pulse bilateral, Lungs: CTA bilateral, no rhonchi, no rales , no accessory muscle use Abdominal: soft, nontender to palpation, no guarding, no appreciable organomegaly Ext: no gross muscle atrophy, no edema, no contractures Neuro: CN II-XI grossly intact, no focal neuro deficits Psych: Alert, oriented, appropriate affect - Labs CBC & Chem 7: 07/05/21 08:06 07/03/21 20:15 Labs: Abnormal Lab Results - Last 24 Hours (Table) 07/04/21 07/04/21 07/05/21 Range/Units 11:41 16:10 08:06 Neutrophils # 8.0 H (1.3-7.7) k/uL APTT 35.8 H (22.0-30.0) sec POC Glucose (mg/dL) 125 H (75-99) mg/dL Assessment and Plan Assessment: #Syncope 2 #Ventricular tachycardia -And sitting off hypertrophic obstructive cardiomyopathy. -Cardiology following -Carotid Doppler without significant stenosis -Amiodarone drip per cardiology -Cardiology increased Toprol to 100 mg daily and added disopyramide 100mg TID. -To consider elective surgical consultation for general cardiology -Continue telemetry -Check magnesium level #Hypertrophic obstructive cardiomyopathy with mean gradient 56mmHg -#LVOT obstruction with mean gradient 56mmHg #Elevated troponin -related to hypertrophic cardiomyopathy, syncope, outflow obstruction. Do not suspect ACS with normal coronary angiogram 12 years ago and no angina symptoms. #DVT prophylaxis with subcu Lovenox
[2021-07-05 09:56] LABS: ALT 68 U/L (4-49); AST 29 U/L (17-59); African American GFR (CKD) >90 (>60 ml/min/1.73 sqM); Albumin 3.4 g/dL (3.5-5.0); Alkaline Phosphatase 60 U/L (38-126); Anion Gap 4 mmol/L; Blood Urea Nitrogen 10 mg/dL (9-20); Calcium 8.8 mg/dL (8.4-10.2); Carbon Dioxide 26 mmol/L (22-30); Chloride 106 mmol/L (98-107); Glucose 133 mg/dL (74-99); Magnesium 2.3 mg/dL (1.6-2.3); Non-African American GFR(CKD) 89 (>60 ml/min/1.73 sqM); Potassium 4.2 mmol/L (3.5-5.1); Sodium 136 mmol/L (137-145); Total Bilirubin 0.6 mg/dL (0.2-1.3); Total Protein 6.2 g/dL (6.3-8.2)
[2021-07-05] MEDS: ENOXAPARIN 40 MG/0.4 ML SYRINGE SQ SCH (10:27)
[2021-07-05] MEDS: AMIODARONE 450 MG in DEXTROSE 5% IN WATER 250 ML IV SCH ×2 (12:40)
--- NOTE | 2021-07-05 15:03 | P.PN ---
Subjective HISTORY OF PRESENTING ILLNESS Patient is a pleasant 71-year-old male with history of hypertrophic obstructive cardiomyopathy diagnosed approximately 12 years ago, normal coronary arteries by heart catheterization 12 years ago per patient, syncope. Patient previously followed with Dr. Aguayo in [facility] however then started following with a new doctor. He was initially diagnosed 12 years ago and had workup at the time with normal heart catheterization. He did have screening workup with an echo performed approximately a few months ago which showed worsening gradient apparently and therefore recommendation for cardiac MRI which was performed to afford and again showed worsening of the degree of obstruction. Therefore he was recommended to see a surgeon from [facility] which she did 07/03. Surgeon discussed myomectomy however also referral to waiter/waitress informal for possible medical therapy with a "new drug", likely mavacamtem. Patient drove home and then was sitting on his couch watching TV when he suddenly started feeling lightheaded and apparently became blue and unresponsive and therefore EMS was called. Patient apparently did not recall any events until he woke up with EMS around him. He denies any preceding chest pain, pressure, palpitations. He denies any dehydration or any changes to medications. He initially denied any recent symptoms however on further discussion with the son he has had a number of episodes where he will suddenly become lightheaded. No prior similar episode of syncope. EKG shows normal sinus rhythm with LVH with nonspecific ST abnormalities. Echo performed which shows EF 60% with LVOT gradient with a mean gradient >56. Troponin mildly elevated 0.03, 0.16, 0.09. ProBNP elevated at 3860. 07/05 Patient seen and examined. Patient had episode yesterday of sustained ventricular tachycardia with heart rate 220-240 with loss of consciousness. He spontaneously converted back to sinus rhythm. This was before any medications were given. He was placed on amiodarone drip and no further episodes since. He was also increased on his metoprolol. PHYSICAL EXAMINATION Vital signs reviewed. CONSTITUTIONAL: No apparent distress. HEENT: Head is normocephalic. Pupils are equal, round. Sclerae anicteric. Mucous membranes of the mouth are moist. No JVD. No carotid bruit. CHEST EXAMINATION: Lungs are clear to auscultation. No chest wall tenderness is noted on palpation or with deep breathing. HEART EXAMINATION: Regular rate and rhythm. S1, S2 heard. +3/6 systolic murmur, no gallops or rub. ABDOMEN: Soft, nontender. Positive bowel sounds. EXTREMITIES: 2+ peripheral pulses, no lower extremity edema and no calf tenderness. NEUROLOGIC EXAMINATION: Patient is awake, alert and oriented x3. ASSESSMENT 1. Syncope related to VT 2. Hypertrophic obstructive cardiomyopathy with mean gradient 56mmHg 3. Increasing episodes of lightheadedness last few months 4. Elevated troponin likely related to hypertrophic cardiomyopathy, syncope, outflow obstruction. Do not suspect ACS with normal coronary angiogram 12 years ago and no angina symptoms. 5. LVOT obstruction with mean gradient 56mmHg 6. 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 We will check heart catheterization first to rule out any underlying CAD compounding VT Otherwise continue amiodarone loading and increased dose of beta alicia. Goal would be to place AICD and stabilized patient and then monitor symptoms on increased dose of beta alicia. If patient is still having symptoms as an outpatient, he would follow-up with [facility] waiter/waitress informal for possible addition of Mavacamten or further evaluation of myomectomy Objective - Vital Signs Vital signs: Vital Signs Temp 98.5 F 07/05/21 12:24 Pulse 64 07/05/21 12:24 Resp 18 07/05/21 12:24 BP 129/79 07/05/21 12:24 Pulse Ox 98 07/05/21 12:24 Intake & Output 07/04/21 07/05/21 07/05/21 18:59 06:59 18:59 Intake Total 90.428 300 832.505 Output Total 1 1400 Balance 89.428 -1100 832.505 Intake: Intake, IV Titration 90.428 832.505 Amount Amiodarone 450 mg In 232.505 Dextrose 5% in Water 250 ml @ 0.5 MG/MIN 16.667 mls/hr IV .Q15H [facility] Rx#: [id number] Heparin Sod,Pork in 0.45% 90.428 NaCl 25,000 unit In 0.45 % NaCl 1 250ml.bag @ 10. 4982 UNITS/KG/HR 10 mls/ hr IV .Q24H [facility] Rx#: [id number] Sodium Chloride 0.9% 1, 600 000 ml @ 75 mls/hr IV . [id number] [facility] Rx#:[id number] Oral 300 Output: Urine 1 1400 Other: Voiding Method Urinal # Voids 3 - Labs CBC & Chem 7: 07/05/21 08:06 07/05/21 08:06 Labs: Abnormal Lab Results - Last 24 Hours (Table) 07/04/21 07/05/21 07/05/21 Range/Units 16:10 08:06 08:06 Neutrophils # 8.0 H (1.3-7.7) k/uL Sodium 136 L (137-145) mmol/L Glucose 133 H (74-99) mg/dL POC Glucose (mg/dL) 125 H (75-99) mg/dL ALT 68 H (4-49) U/L Total Protein 6.2 L (6.3-8.2) g/dL Albumin 3.4 L (3.5-5.0) g/dL
[2021-07-05] MEDS: AMIODARONE 200 MG TAB PO SCH ×2 (16:38→23:46)
[2021-07-05] MEDS ORDERED: ALPRAZolam 0.5 MG TAB PO PRN (16:44)
[2021-07-05] MEDS ORDERED: NITROGLYCERIN SL TABS 0.4 MG TAB SUBLINGUAL PRN (16:44)
[2021-07-05] MEDS ORDERED: ALPRAZolam 0.25 MG TAB PO PRN (16:44)
[2021-07-05] MEDS ORDERED: SODIUM CHLORIDE 0.9% 1,000 ML IV SCH (18:00)
[2021-07-06] MEDS ORDERED: ASPIRIN 325 MG TAB PO ONE (05:00)
[2021-07-06] MEDS ORDERED: ATORVASTATIN 80 MG TAB PO ONE (05:00)
[2021-07-06 06:28] LABS: Glucose,Whole Blood 105 mg/dL (75-99)
[2021-07-06] MEDS: PANTOPRAZOLE 40 MG TABLET PO SCH (06:41)
[2021-07-06] MEDS ORDERED: HEPARIN SODIUM,PORCINE 10,000 UNIT in SODIUM CHLORIDE 0.9% 1,000 ML IRRIGATION PRN (07:00)
[2021-07-06] MEDS ORDERED: HEPARIN SODIUM,PORCINE 2,500 UNIT in SODIUM CHLORIDE 0.9% 250 ML IRRIGATION PRN (07:00)
[2021-07-06] MEDS: METOPROLOL SUCCINATE (ER) 100 MG TAB.ER.24H PO SCH (08:12)
[2021-07-06] MEDS: MULTIVITAMINS, THERA 1 EACH TAB PO SCH (08:13)
[2021-07-06] MEDS: CHOLECALCIFEROL 25 MCG (1000 IU) TABLET PO SCH (08:13)
[2021-07-06] MEDS: AMIODARONE 200 MG TAB PO SCH ×2 (08:13→21:32)
[2021-07-06 08:56] LABS: Basophils # (A) 0.1 k/uL (0-0.2); Basophils % (A) 1 %; Eosinophils # (A) 0.1 k/uL (0-0.7); Eosinophils % (A) 1 %; HCT 44.4 % (39.0-53.0); HGB 14.4 gm/dL (13.0-17.5); Lymphocytes # (A) 1.2 k/uL (1.0-4.8); Lymphocytes % (A) 12 %; MCH 30.6 pg (25.0-35.0); MCHC 32.3 g/dL (31.0-37.0); MCV 94.8 fL (80.0-100.0); Mean Platelet Volume 8.1; Monocytes # (A) 0.5 k/uL (0-1.0); Monocytes % (A) 5 %; Neutrophils # (A) 7.6 k/uL (1.3-7.7); Neutrophils % (A) 79 %; Platelet Count 246 k/uL (150-450); RBC 4.69 m/uL (4.30-5.90); RDW 13.7 % (11.5-15.5); WBC 9.7 k/uL (3.8-10.6)
--- NOTE | 2021-07-06 10:46 | P.PN ---
Subjective Principal diagnosis: Patient is a 71-year-old male with a PMH of hypertrophic obstructive cardiomyopathy who presented to the emergency room after an episode of syncope at home. The patient reports that he was in his usual state of health and was sitting on his couch watching television with his when he suddenly felt lightheaded, and the next thing he knew he woke up on the ground. The episode was witnessed by the reported that he suddenly slumped over in the couch lost consciousness. She reports he appeared blue and pale, although would open his eyes intermittently and look at her and then closes eyes again and was unresponsive. She immediately called EMS who advised her to lay the patient on the ground. The patient did not suffer any falls or injuries as a result of his loss of consciousness. The episode lasted roughly 5 minutes. The patient experienced urinary incontinence. Denied tongue bites with no reported shacking movements. The patient denied experiencing prodromal chest discomfort, palpitations, nausea, or shortness of breath. No post ictal confusion was noted. As per the EMS, the patient was diaphoretic but was alert and oriented 3. Patient reported feeling back at his baseline at the time of interview. He denied any history of loss of consciousness. Patient reports that he was seen at [facility] cardiovascular surgery earlier today due to his worsening obstructive cardiomyopathy. At the time of interview, the patient denied experiencing chest discomfort, palpitations, shortness of breath, nausea, vomiting, diaphoresis, fever, chills, cough, abdominal pain, diarrhea. Laboratory evaluation was remarkable for platelet count 141, d-dimer 1.09, troponin 0.038, and a proBNP 3860. Chest CTA revealed no signs of pulmonary embolism. CT brain was unremarkable. Interval history: patient was seen and examined at the bedside. He denies any chest pain or shortness of breath. No reported acute changes overnight Objective - Vital Signs Vital signs: Vital Signs Temp 97.7 F 07/06/21 08:10 Pulse 76 07/06/21 08:10 Resp 18 07/06/21 08:10 BP 156/83 07/06/21 08:10 Pulse Ox 96 07/06/21 08:10 Intake & Output 07/05/21 07/06/21 07/06/21 18:59 06:59 18:59 Intake Total 950.505 Output Total 700 Balance 950.505 -700 Weight 93.395 kg Intake: Intake, IV Titration 832.505 Amount Amiodarone 450 mg In 232.505 Dextrose 5% in Water 250 ml @ 0.5 MG/MIN 16.667 mls/hr IV .Q15H [facility] Rx#: [id number] Sodium Chloride 0.9% 1, 600 000 ml @ 75 mls/hr IV . [id number] [facility] Rx#:[id number] Oral 118 Output: Urine 700 Other: Voiding Method Toilet Urinal # Voids 1 - Exam General: non toxic, no distress, appears at stated age Derm: warm, dry Head: atraumatic, normocephalic, symmetric Eyes: EOMI, no lid lag, anicteric sclera Mouth: no lip lesion, mucus membranes moist Cardiovascular: S1S2 reg, no murmur, positive posterior tibial pulse bilateral, Lungs: CTA bilateral, no rhonchi, no rales , no accessory muscle use Abdominal: soft, nontender to palpation, no guarding, no appreciable organ omegaly Ext: no gross muscle atrophy, no edema, no contractures Neuro: CN II-XI grossly intact, no focal neuro deficits Psych: Alert, oriented, appropriate affect - Labs CBC & Chem 7: 07/06/21 08:36 07/05/21 08:06 Labs: Abnormal Lab Results - Last 24 Hours (Table) 07/06/21 Range/Units 06:27 POC Glucose (mg/dL) 105 H (75-99) mg/dL Assessment and Plan Assessment: #Syncope 2 #Ventricular tachycardia -And sitting off hypertrophic obstructive cardiomyopathy. -Cardiology following -cardiology plan for left heart cath. today. -Carotid Doppler without significant stenosis -Amiodarone drip per cardiology -Cardiology increased Toprol to 100 mg daily and added disopyramide 100mg TID. -electrophysiology consultedfor AICD -Continue telemetry -Check magnesium level #Hypertrophic obstructive cardiomyopathy with mean gradient 56mmHg -#LVOT obstruction with mean gradient 56mmHg #Elevated troponin -related to hypertrophic cardiomyopathy, syncope, outflow obstruction. Do not suspect ACS with normal coronary angiogram 12 years ago and no angina symptoms. #DVT prophylaxis with subcu Lovenox
[2021-07-06] MEDS ORDERED: LIDOCAINE 1% INJ 10MG/ML (20 ML MDV) ONE (13:20)
[2021-07-06] MEDS ORDERED: VERAPAMIL 2.5 MG/ML 2 ML AMP ONE (13:20)
[2021-07-06] MEDS ORDERED: fentaNYL (PF) 50 MCG/ML 2 ML AMP ONE (13:44)
[2021-07-06] MEDS ORDERED: fentaNYL (PF) 50 MCG/ML 2 ML AMP IV ONE (13:51)
[2021-07-06] MEDS ORDERED: MIDAZOLAM 2 MG/2 ML VIAL IV ONE (13:51)
[2021-07-06] MEDS ORDERED: LIDOCAINE 1% INJ 10MG/ML (20 ML MDV) SQ ONE (13:52)
[2021-07-06] MEDS ORDERED: VERAPAMIL SYRINGE (5 MG/10 ML) INTRAARTER ONE (13:55)
[2021-07-06] MEDS ORDERED: IV FLUID CONTINUATION 900 ML IV ONE (13:56)
[2021-07-06] MEDS ORDERED: HEPARIN SODIUM 1,000 UN/ML (10ML VL) ONE (14:02)
[2021-07-06] MEDS ORDERED: HEPARIN SODIUM 1,000 UN/ML (10ML VL) IV ONE (14:03)
[2021-07-06] MEDS ORDERED: IOPAMIDOL-370 125ML BTL INJ ONE (14:03)
--- NOTE | 2021-07-06 14:15 | P.CARDCATH ---
Description of Procedure: PROCEDURES PERFORMED: Left heart catheterization, bilateral coronary angiography INDICATION: Syncope, non-STEMI, ventricular tachycardia HISTORY: Patient is pleasant 71-year-old male with history of hypertrophic obstructive cardiomyopathy who presented secondary syncopal episode. He has been having increased gradients from his hypertrophic cardiomyopathy and has been evaluated at [facility] for possible myomectomy CONSENT:I have discussed the risks, benefits and alternative therapies for the above-mentioned procedure and for both sedation/analgesia as well as necessary blood product administration, if indicated, as they pertain to this patient. The patient has indicated understanding and acceptance of the risks and procedures discussed. PROCEDURE: After the risks, benefits and alternatives of the above mentioned procedure explained in detail with the patient, informed consent was obtained. Patient was taken to the catheterization lab and prepped and draped in usual fashion. 1% lidocaine was used to anesthetize the right radial artery. A 6- Togolese sheath was placed in the right radial artery using modified Seldinger technique. Left coronary angiography was performed with a 5-Togolese JL 3.5 catheter and right coronary angiography was performed with a 5-Togolese JR5 catheter in various views. A 5-Togolese FR5 catheter was inserted into the left ventricle and pressure measurements were obtained. The right radial sheath was removed and a TR band was placed with hemostasis achieved. The patient tolera elena the procedure well. Patient was transported back to the post catheterization holding area in stable condition. Conscious Sedation: Patient was monitored under the direct supervision of vision of myself for conscious sedation using Versed and fentanyl for a total duration of 13 minutes HEMODYNAMICS: Aorta: 108/69 LV: Systolic 184 at the apex with pullback gradient to 105/7, LVEDP 26. LVOT gradient of 79mmHg peak to peak SELECTIVE CORONARY ARTERIOGRAPHY: LEFT MAIN: The left main is a large caliber vessel which bifurcates into the LAD and circumflex. There is no significant stenosis. LEFT ANTERIOR DESCENDING CORONARY ARTERY: LAD is a large caliber vessel which wraps around to the apex. There is no significant stenosis. LEFT CIRCUMFLEX CORONARY ARTERY: Left circumflex is a moderate caliber vessel without significant stenosis. RIGHT CORONARY ARTERY: The right coronary artery is a large caliber vessel which gives off a PDA and PLV branch and is the dominant vessel. There is no significant stenosis. FINAL IMPRESSION: 1. Normal coronary arteries as described above. 2. Elevated left sided filling pressures 3. Peak to peak resting LVOT gradient of 79mmHg PLAN: 1. Aggressive risk factor modification per most recent ACC/AHA guidelines.
--- NOTE | 2021-07-06 16:59 | P.EPCON ---
Electrophysiology Consult - EP Consult Electrophysiology Consult: This is Dr. Mcguire dictating an EP consult on this patient The patient was interviewed and examined IMPRESSION / ASSESSMENT: Syncope while sitting, Known hypertrophic cardio myopathy with severe LVH, abnormal ECG with inverted T waves in the lateral precordial and high lateral leads Wall thickness is greater than 2.2 cm in the septal Dilated left atrium, systolic anterior motion anterior mitral leaflet but without any significant MR Documented ventricular arrhythmia in the hospital PLAN: Maximize long-acting beta blockers Also initiate Mavacamten for LVOT obstruction Continue amiodarone by mouth loading Recommend ICD implantation for secondary prevention of sudden cardiac Proceed with surgical myomectomy HPI 71-year-old male patient with a history of cardio myopathy being evaluated for a septal myomectomy at [facility] Patient was sitting on his couch watching TV, became lightheaded, became blue and unresponsive witnessed an episode of unconsciousness that lasted for about 5 minutes He has never experienced such an episode before ROS: No fever chills or rigors, no cough, phlegm or expectoration, no nausea, vomiting or diarrhea, no hematuria, dysuria, no musculoskeletal complaints, no strokes or seizures, no skin lesions. EXAMINATION: Pulse rate in the 70s, temperature normal Blood pressure 157/85 and 145/70 mmHg Ejection systolic murmur over the left precordial area No JVD Clear lungs No S3 gallop Abdomen soft Extremities are warm REVIEW OF LABS, ECG & MEDICAL DATA Home medications reviewed and include metoprolol succinate 50 mg by mouth daily and a baby aspirin Labs reviewed Normal white count Hemoglobin 14 Normal electrolytes Normal renal function Mildly Abnormal cardiac enzymes with a rise and fall pattern of 0.09, 0.[address] of the chest: No evidence for pulmonary embolism Known hypertrophic cardio myopathy Twelve-lead EKG shows evidence of left ventricular hypertrophy with deep T-wave inversions in V5 and V6 as well as in leads 1 and aVL 2-D echo shows severe left ventricle hypertrophy ejection fraction and 70% Evidence of systolic anterior motion of the anterior mitral leaflet with a severely dilated left atrium LVOT obstruction at baseline mean 41, peak 91 RV mildly enlarged RVSP 39 mmHg
[2021-07-06] MEDS: ENOXAPARIN 40 MG/0.4 ML SYRINGE SQ SCH (17:51)
[2021-07-06] MEDS: SODIUM CHLORIDE 0.9% 1,000 ML IV SCH (19:04)
[2021-07-07] MEDS: PANTOPRAZOLE 40 MG TABLET PO SCH (06:46)
[2021-07-07] MEDS: LACTATED RINGERS 1,000 ML IV SCH (06:47)
[2021-07-07] MEDS ORDERED: ceFAZolin 1 GM in SODIUM CHLORIDE 0.9% IRRIG BTL 250 ML IRRIGATION PRN (07:00)
[2021-07-07 07:06] LABS: Glucose,Whole Blood 99 mg/dL (75-99)
[2021-07-07] MEDS: MULTIVITAMINS, THERA 1 EACH TAB PO SCH (08:08)
[2021-07-07] MEDS: AMIODARONE 200 MG TAB PO SCH ×2 (08:08→20:32)
[2021-07-07] MEDS: ASPIRIN 81 MG PO SCH (08:08)
[2021-07-07] MEDS: CHOLECALCIFEROL 25 MCG (1000 IU) TABLET PO SCH (08:08)
[2021-07-07] MEDS: METOPROLOL SUCCINATE (ER) 100 MG TAB.ER.24H PO SCH (08:08)
--- NOTE | 2021-07-07 10:45 | P.PN ---
Subjective Progress Note Date: 07/07/21 Principal diagnosis: Patient is a 71-year-old male with a PMH of hypertrophic obstructive cardiomyopathy who presented to the emergency room after an episode of syncope at home. The patient reports that he was in his usual state of health and was sitting on his couch watching television with his when he suddenly felt lightheaded, and the next thing he knew he woke up on the ground. The episode was witnessed by the reported that he suddenly slumped over in the couch lost consciousness. She reports he appeared blue and pale, although would open his eyes intermittently and look at her and then closes eyes again and was unresponsive. She immediately called EMS who advised her to lay the patient on the ground. The patient did not suffer any falls or injuries as a result of his loss of consciousness. The episode lasted roughly 5 minutes. The patient experienced urinary incontinence. Denied tongue bites with no reported shacking movements. The patient denied experiencing prodromal chest discomfort, palpitations, nausea, or shortness of breath. No post ictal confusion was noted. As per the EMS, the patient was diaphoretic but was alert and oriented 3. Patient reported feeling back at his baseline at the time of interview. He denied any history of loss of consciousness. Patient reports that he was seen at [facility] cardiovascular surgery earlier today due to his worsening obstructive cardiomyopathy. At the time of interview, the patient denied experiencing chest discomfort, palpitations, shortness of breath, nausea, vomiting, diaphoresis, fever, chills, cough, abdominal pain, diarrhea. Laboratory evaluation was remarkable for platelet count 141, d-dimer 1.09, troponin 0.038, and a proBNP 3860. Chest CTA revealed no signs of pulmonary embolism. CT brain was unremarkable. Interval history: Patient is an eczematous type. He denies any chest pain or shortness of breath. Patient another episode of syncope in the hospital around 4 PM yesterday. Telemetry showed evidence of sustained V. tach. Patient was started on IV amiodarone per cardiology. He denies any chest pain shortness breath today Objective - Vital Signs Vital signs: Vital Signs Temp 98.1 F 07/04/21 20:00 Pulse 75 07/05/21 03:51 Resp 17 07/05/21 03:51 BP 157/85 07/05/21 03:51 Pulse Ox 95 07/05/21 03:51 Intake & Output 07/04/21 07/05/21 07/05/21 18:59 06:59 18:59 Intake Total 90.428 300 Output Total 1 1400 Balance 89.428 -1100 Intake: Intake, IV Titration 90.428 Amount Heparin Sod,Pork in 0.45% 90.428 NaCl 25,000 unit In 0.45 % NaCl 1 250ml.bag @ 10. 4982 UNITS/KG/HR 10 mls/ hr IV .Q24H [facility] Rx#: [id number] Oral 300 Output: Urine 1 1400 Other: Voiding Method Urinal # Voids 3 Patient feels okay today no chest pain no shortness of breath - Exam General: non toxic, no distress, appears at stated age Derm: warm, dry Head: atraumatic, normocephalic, symmetric Eyes: EOMI, no lid lag, anicteric sclera Mouth: no lip lesion, mucus membranes moist Cardiovascular: S1S2 reg, no murmur, positive posterior tibial pulse bilateral, Lungs: CTA bilateral, no rhonchi, no rales , no accessory muscle use Abdominal: soft, nontender to palpation, no guarding, no appreciable organom egaly Ext: no gross muscle atrophy, no edema, no contractures Neuro: CN II-XI grossly intact, no focal neuro deficits Psych: Alert, oriented, appropriate affect - Labs CBC & Chem 7: 07/05/21 08:06 07/03/21 20:15 Labs: Abnormal Lab Results - Last 24 Hours (Table) 07/04/21 07/04/21 07/05/21 Range/Units 11:41 16:10 08:06 Neutrophils # 8.0 H (1.3-7.7) k/uL APTT 35.8 H (22.0-30.0) sec POC Glucose (mg/dL) 125 H (75-99) mg/dL Assessment and Plan Assessment: #Syncope 2 #Ventricular tachycardia -And sitting off hypertrophic obstructive cardiomyopathy. -Cardiology following -Carotid Doppler without significant stenosis -Amiodarone drip per cardiology -Cardiology increased Toprol to 100 mg daily and added disopyramide 100mg TID. -To consider elective surgical consultation for general cardiology -Continue telemetry -Check magnesium level #Hypertrophic obstructive cardiomyopathy with mean gradient 56mmHg -#LVOT obstruction with mean gradient 56mmHg #Elevated troponin -related to hypertrophic cardiomyopathy, syncope, outflow obstruction. Do not suspect ACS with normal coronary angiogram 12 years ago and no angina symptoms. #DVT prophylaxis with subcu Lovenox Patient to have AICD today Overall stable Objective - Vital Signs Vital signs: Vital Signs Temp 98.2 F 07/07/21 08:00 Pulse 68 07/07/21 08:00 Resp 18 07/07/21 08:00 BP 135/78 07/07/21 08:00 Pulse Ox 97 07/07/21 08:00 Intake & Output 07/06/21 07/07/21 07/07/21 18:59 06:59 18:59 Intake Total 625 Output Total 500 Balance 625 -500 Intake: IV 100 Intake, IV Titration 525 Amount Sodium Chloride 0.9% 1, 525 000 ml @ 75 mls/hr IV . [id number] [facility] Rx#:[id number] Output: Urine 500 Other: Voiding Method Toilet Toilet Toilet Urinal Urinal Urinal # Voids 1 - Labs CBC & Chem 7: 07/06/21 08:36 07/05/21 08:06
[2021-07-07] MEDS: ENOXAPARIN 40 MG/0.4 ML SYRINGE SQ SCH (12:01)
[2021-07-07] MEDS ORDERED: LACTATED RINGERS 1,000 ML IV ONE (15:52)
[2021-07-07] MEDS ORDERED: fentaNYL (PF) 50 MCG/ML 2 ML AMP ONE (15:55)
[2021-07-07] MEDS ORDERED: MIDAZOLAM 2 MG/2 ML VIAL ONE (15:55)
[2021-07-07] MEDS ORDERED: PROPOFOL 10 MG/ML 20 ML VIAL IV ONE (15:55)
[2021-07-07] MEDS ORDERED: IOPAMIDOL-300 50ML BTL INJ ONE (16:11)
[2021-07-07] MEDS ORDERED: VANCOMYCIN 2,000 MG in SODIUM CHLORIDE 0.9% 500 ML 500 ML IVPB STA (16:19)
[2021-07-07] MEDS ORDERED: LIDOCAINE 1% INJ 10MG/ML (20 ML MDV) ONE (16:22)
[2021-07-07] MEDS ORDERED: LIDOCAINE 1% INJ 10MG/ML (20 ML MDV) SQ ONE (16:38)
[2021-07-07] MEDS ORDERED: ACETAMINOPHEN TAB 325 MG TAB PO PRN (17:47)
[2021-07-07] MEDS ORDERED: ACETAMINOPHEN IV (For NPO) 1,000 MG in EMPTY BAG 1 BAG IVPB ONE (17:47)
--- NOTE | 2021-07-07 18:19 | P.EPPROC ---
- EP Procedure Note Electrophysiology Procedure Note: Diagnosis Cardiomyopathy, hypertrophic, obstructive Bradycardia, with left bundle branch block, new onset Fast VT 240 ms with syncope cardiac arrest Maximum LV thickness 3.1 cm on cardiac MRI Dilated left atrium 5 cm On 100 mg of Toprol, supine, baseline LVOT gradient 79 mmHg Procedure: Dual-chamber ICD implantation for management of risk of sudden cardiac /bradycardia Secondary prevention of sudden cardiac Result: Dual chamber ICD implantation, Atrial lead: [employer], tendril 2088 TC, 52 cm in length 0.8 V at 0.5 ms threshold, P waves 2.8 mV, pacing impedance 430 ohms RV ICD lead: [employer] up to assure LDA 210Q, 65 cm Threshold 0.8 V at 0.5 ms, R waves greater than 12 mV, pacing impedance 580 ohms High-voltage impedance [address] [facility] [employer], dual-chamber ICD, Gabriele CRUZ, serial #[id number] DFT level testing was not performed Procedure details: Patient was brought to the EP lab in a fasting state. Written informed consent was obtained prior to the procedure. Options, pros and cons, benefits and risks and complications discussed with patient in detail prior to the procedure (shared decision making). Importance of continuing medical treatment emphasized. Alternatives discussed. Patient would like to proceed with dual-chamber ICD implant. Left upper extremity venogram performed. 15 mL IV dye injected in the left arm. Patent axillary/subclavian vein The left pectoral area was prepped and draped as a protocol. IV antibiotics administered 1% lidocaine was used for local anesthesia. A 4 cm incision was made parallel to the deltopectoral groove, about 1.5 cm medial to it. The incision was carried down to the level of the pectoralis muscle and the subfascial pocket was made. Hemostasis was assured. The axillary vein access was obtained. Appropriately sized into to see sheaths were placed. ICD lead implanted in the right ventricle and screwed in. ICD lead tested for threshold, sensing, impedances and tested with high output pacing for diaphragmatic stimulation Atrial lead placed in the right atrial appendage and tested for threshold, sensing, impedance, and tested with high output pacing. Phrenic nerve stimulation Lead secured to the underlying transverse muscle after removing sheaths . Pocket irrigated with antibiotic solution Leads connected to the biventricular ICD generator. Wound closed in 3 layers and dressed per protocol Dual ICD interrogated and programmed. Appropriate pacing parameters, antitachycardia therapies with antitachycardia pacing cardioversion defibrillations programmed. DDD 50 PPM, appropriate antitachycardia pacing cardioversion and defibrillation, Total vector, first cardioversion 20 J, first defibrillation max output Patient tolerated the procedure well without any acute complications. See scanned device report in EMR for lead details
--- NOTE | 2021-07-07 18:20 | P.EPPROC ---
- EP Procedure Note Electrophysiology Procedure Note: Left upper extremity venogram 10 mL IV dye injected in the left arm Patent left axillary, left subclavian and central venous circulation to the SVC and RA Plan Proceed with dual-chamber ICD implantation
[2021-07-07] MEDS: SODIUM CHLORIDE 0.9% 1,000 ML IV SCH (20:27)
[2021-07-07] MEDS: METOPROLOL SUCCINATE (ER) 50 MG TAB.ER.24H PO SCH (20:32)
--- NOTE | 2021-07-07 21:28 | XR ---
EXAMINATION TYPE: XR chest 1V portable DATE OF EXAM: 07/07/2021 COMPARISON: 07/03/2021 HISTORY: Lead placement TECHNIQUE: Single view FINDINGS: There is no heart failure nor confluent pneumonic infiltrate. Costophrenic angles are clear . There is left axillary pacemaker. IMPRESSION: No active cardiopulmonary disease. No adverse change.
[2021-07-08] MEDS: PANTOPRAZOLE 40 MG TABLET PO SCH (05:20)
[2021-07-08] MEDS: SODIUM CHLORIDE 0.9% 1,000 ML IV SCH (05:52)
[2021-07-08] MEDS: LACTATED RINGERS 1,000 ML IV SCH (05:52)
[2021-07-08 05:54] VITALS: TEMP 98.4
[2021-07-08 08:12] LABS: Basophils # (A) 0.1 k/uL (0-0.2); Basophils % (A) 1 %; Eosinophils # (A) 0.1 k/uL (0-0.7); Eosinophils % (A) 1 %; HCT 44.3 % (39.0-53.0); HGB 14.5 gm/dL (13.0-17.5); Lymphocytes # (A) 0.9 k/uL (1.0-4.8); Lymphocytes % (A) 9 %; MCH 30.7 pg (25.0-35.0); MCHC 32.7 g/dL (31.0-37.0); MCV 94.1 fL (80.0-100.0); Mean Platelet Volume 7.9; Monocytes # (A) 0.7 k/uL (0-1.0); Monocytes % (A) 7 %; Neutrophils # (A) 8.3 k/uL (1.3-7.7); Neutrophils % (A) 81 %; Platelet Count 252 k/uL (150-450); RDW 12.9 % (11.5-15.5); WBC 10.3 k/uL (3.8-10.6)
[2021-07-08] MEDS: AMIODARONE 200 MG TAB PO SCH (08:28)
[2021-07-08] MEDS: METOPROLOL SUCCINATE (ER) 50 MG TAB.ER.24H PO SCH (08:28)
[2021-07-08] MEDS: MULTIVITAMINS, THERA 1 EACH TAB PO SCH (08:28)
[2021-07-08] MEDS: ASPIRIN 81 MG PO SCH (08:28)
[2021-07-08] MEDS: ENOXAPARIN 40 MG/0.4 ML SYRINGE SQ SCH (08:28)
[2021-07-08] MEDS: CHOLECALCIFEROL 25 MCG (1000 IU) TABLET PO SCH (08:28)
[2021-07-08 08:33] VITALS: BP 129/59; PULSE 68; RESP 16
[2021-07-08 08:33] LABS: ALT 38 U/L (4-49); AST 23 U/L (17-59); African American GFR (CKD) >90 (>60 ml/min/1.73 sqM); Albumin 3.2 g/dL (3.5-5.0); Alkaline Phosphatase 62 U/L (38-126); Anion Gap 7 mmol/L; Blood Urea Nitrogen 14 mg/dL (9-20); Calcium 8.7 mg/dL (8.4-10.2); Carbon Dioxide 24 mmol/L (22-30); Chloride 107 mmol/L (98-107); Glucose 159 mg/dL (74-99); Non-African American GFR(CKD) 87 (>60 ml/min/1.73 sqM); Potassium 3.9 mmol/L (3.5-5.1); Sodium 138 mmol/L (137-145); Total Bilirubin 0.6 mg/dL (0.2-1.3); Total Protein 6.2 g/dL (6.3-8.2)
--- NOTE | 2021-07-08 11:18 | P.DS ---
Providers Date of admission: 07/03/21 22:29 Expected date of discharge: 07/08/21 Attending physician: Vishnu Fleming MD Consults: 07/03/21 22:30 Consult Physician Routine Consulting Provider: Hu Huffman Consult Reason/Comments: Syncope Do you want consulting provider notified?: Yes, Notify in am Consult Physician Routine Consulting Provider: Marnie Rivas Consult Reason/Comments: Syncope, elevated troponin, history of cardiomyopa thy Do you want consulting provider notified?: Yes, Notify in am Primary care physician: Physician Nonstaff Hospital Course: Constitutional: No acute distress, conversant, pleasant Eyes: Anicteric sclerae, moist conjunctiva, no lid-lag PERRLA ENMT: NC/AT Oropharynx clear, no erythema, exudates Neck: Supple, FROM, no masses, or JVD No carotid bruits No thyromegaly Lungs: Clear to auscultation Clear to percussion Normal respiratory effort, no accessory muscle use Cardiovascular: Heart regular in rate and rhythm, No murmurs, gallops, or rubs No peripheral edema Abdominal: Soft Nontender, no guarding, rebound or rigidity Abdomen moving with respiration Normoactive bowel sounds No hepatomegaly, No splenomegaly No palpable mass No abdominal wall hernia noted Skin: Normal temperature, tone, texture, turgor No induration No subcutaneous nodules No rash, lesions No ulcers Extremities: No digital cyanosis No clubbing Pedal pulses intact and symmetrical Radial pulses intact and symmetrical Normal gait and station No calf tenderness Psychiatric:Alert and oriented to person, place and time Appropriate affect Intact judgement Neuro: Muscles Strength 5/5 in all 4 extremities Sensation to light touch grossly present throughout Cranial nerves II-XII grossly intact No focal sensory deficits Patient is a 71-year-old male with a PMH of hypertrophic obstructive cardiomyopathy who presented to the emergency room after an episode of syncope at home. The patient reports that he was in his usual state of health and was sitting on his couch watching television with his when he suddenly felt lightheaded, and the next thing he knew he woke up on the ground. The episode was witnessed by the reported that he suddenly slumped over in the couch lost consciousness. She reports he appeared blue and pale, although would open his eyes intermittently and look at her and then closes eyes again and was unresponsive. She immediately called EMS who advised her to lay the patient on the ground. The patient did not suffer any falls or injuries as a result of his loss of consciousness. The episode lasted roughly 5 minutes. The patient experienced urinary incontinence. Denied tongue bites with no reported shacking movements. The patient denied experiencing prodromal chest discomfort, palpitations, nausea, or shortness of breath. No post ictal confusion was noted. As per the EMS, the patient was diaphoretic but was alert and oriented 3. Patient reported feeling back at his baseline at the time of interview. He denied any history of loss of consciousness. Patient reports that he was seen at [facility] cardiovascular surgery earlier today due to his worsening obstructive cardiomyopathy. At the time of interview, the patient denied experiencing chest discomfort, palpitations, shortness of breath, nausea, vomiting, diaphoresis, fever, chills, cough, abdominal pain, diarrhea. Laboratory evaluation was remarkable for platelet count 141, d-dimer 1.09, troponin 0.038, and a proBNP 3860. Chest CTA revealed no signs of pulmonary embolism. CT brain was unremarkable. patient admitted to the hospital patient did have episodes of V. tach has been started on amiodarone drip condition of the patient has been stabilized the patient did underwent a cardiac cath didn't show any significant obstructive in didn't show any significant obstruction that needs intervention patient also did have an AICD placed yesterday patient feels better today denies any significant chest pain or shortness of breath Discharge planEpisodes of V. tach resolved amiodarone has been increased and cardiac medications has been adjusted by cardiology Patient did have cardiac cath and AICD placed Follow-up with cardiology and primary care physician Patient Condition at Discharge: Fair Plan - Discharge Summary Discharge Rx Participant: No New Discharge Prescriptions: New Amiodarone [Cordarone] 400 mg PO BID #90 tablet Metoprolol Succinate (ER) [Toprol XL] 100 mg PO DAILY #90 tab Metoprolol Succinate (ER) [Toprol XL] 50 mg PO DAILY #90 tab Continue Omeprazole [PriLOSEC] 20 mg PO DAILY Multivit-Min/FA/Lycopen/Lutein [Centrum Silver Men Tablet] 1 tab PO DAILY Cholecalciferol [Vitamin D3 (25 Mcg = 1000 Iu)] 25 mcg PO DAILY Aspirin EC [Ecotrin Low Dose] 81 mg PO DAILY Discontinued Metoprolol Succinate [Toprol XL] 50 mg PO DAILY [place]-3 Fatty Acids/Fish Oil [Fish Oil 1,000 mg Softgel] 1 cap PO HS Discharge Medication List Aspirin EC [Ecotrin Low Dose] 81 mg PO DAILY 07/03/21 [History] Cholecalciferol [Vitamin D3 (25 Mcg = 1000 Iu)] 25 mcg PO DAILY 07/03/21 [History] Multivit-Min/FA/Lycopen/Lutein [Centrum Silver Men Tablet] 1 tab PO DAILY 07/03/21 [History] Omeprazole [PriLOSEC] 20 mg PO DAILY 07/03/21 [History] Amiodarone [Cordarone] 400 mg PO BID #90 tablet 07/07/21 [Rx] Metoprolol Succinate (ER) [Toprol XL] 50 mg PO DAILY #90 tab 07/07/21 [Rx] Metoprolol Succinate (ER) [Toprol XL] 100 mg PO DAILY #90 tab 07/07/21 [Rx] Follow up Appointment(s)/Referral(s): Dominick Bowman DO [STAFF PHYSICIAN] - 1 Week (Device clinic follow-up in 1 week at cardiology [facility] Follow Dr. Bowman within 2-4 weeks ) Nonstaff,Physician [Primary Care Provider] - 1-2 days Activity/Diet/Wound Care/Special Instructions: PATIENT EDUCATION MATERIAL Instructions following a heart rhythm device implant. 1. Keep dressing DRY for 5 DAYS. You may cover the area with Saran or Cling Wrap, prior to a shower. 2. The dressing will be removed in the Device Clinic at Cardiology [facility]. Absorbable sutures were used to close the wound. 3. Avoid raising the left arm above the shoulder level. 4 week restriction 4. Avoid arm movements, like backscratching, rubbing the head, or pulling on a cord. 4 weeks restriction 5. Gentle range of motion movements of the shoulder, closest to the incision should be performed to avoid a frozen shoulder. (Pendulum exercises of the shoulder) 6. The opposite arm may be used freely. 7. Avoid driving for 7 days. 8. Avoid activities such as golfing, swimming, weed whacking, lifting more than 10 pounds weight, bowling, gymnastics and weight training/lifting. (6 weeks restriction) 9. Activities such as wood chopping with an axe, pull-ups in the gymnasium, power lifting, arc-welding, being close to home induction cooktops will always be a problem. 10. Arm sling is only a reminder not to raise the arm above the head. You do not need to keep the arm completely immobilized. Your free to move the arm and use it and for normal activities. In case of any problems, please call [facility], Asha Cruz, @ [phone], Attention: Device Clinic Device clinic follow-up in [facility] Follow Dr. 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
--- NOTE | 2021-07-08 12:40 | P.PN ---
Subjective HISTORY OF PRESENTING ILLNESS Patient is a pleasant 71-year-old male with history of hypertrophic obstructive cardiomyopathy diagnosed approximately 12 years ago, normal coronary arteries by heart catheterization 12 years ago per patient, syncope. Patient previously followed with Dr. Aguayo in [facility] however then started following with a new doctor. He was initially diagnosed 12 years ago and had workup at the time with normal heart catheterization. He did have screening workup with an echo performed approximately a few months ago which showed worsening gradient apparently and therefore recommendation for cardiac MRI which was performed to afford and again showed worsening of the degree of obstruction. Therefore he was recommended to see a surgeon from [facility] which she did 07/03. Surgeon discussed myomectomy however also referral to commercial energy auditor for possible medical therapy with a "new drug", likely mavacamtem. Patient drove home and then was sitting on his couch watching TV when he suddenly started feeling lightheaded and apparently became blue and unresponsive and therefore EMS was called. Patient apparently did not recall any events until he woke up with EMS around him. EKG revealed normal sinus rhythm with LVH with nonspecific ST abnormalities. Echo performed which shows EF 60% with LVOT gradient with a mean gradient >56. Troponin mildly elevated 0.03, 0.16, 0.09. ProBNP elevated at 3860. 07/04-07/05- Patient had episode sustained ventricular tachycardia with heart rate 220-240 with loss of consciousness. He spontaneously converted back to sinus rhythm. This was before any medications were given. He was placed on amiodarone drip and no further episodes since. His metoprolol was also increased 07/06/21: Patient underwent cardiac catheterization with Dr. Bowman which revealed normal coronary arteries, elevated left-sided filling pressures, peaked peak resting LVOT gradient 79 mmHg 07/07/21: Patient underwent Dual-chamber ICD implantation with Dr. Mcguire for management of risk of sudden cardiac /bradycardia 07/08/21: Patient seen and examined at bedside, no acute distress. She denies any chest pain or shortness of breath. Telemetry reviewed patient maintaining sinus mechanism heart rates 6070s. No further episodes of Vtach/NSVT after device placement. Device interrogated today, functioning normally, no acute events. Patient is currently maintained on amiodarone 400 mg twice a day, aspirin 81 mg daily, metoprolol succinate 50 mg daily Labs: WBC 10.3, hemoglobin 14.5, platelets 252, sodium 138, potassium 3.9, BUN 14, serum crit 0.9 PHYSICAL EXAMINATION Vital signs reviewed. CONSTITUTIONAL: No apparent distress. HEENT: Neck Supple. No JVD. CHEST EXAMINATION: Lungs are clear to auscultation. No chest wall tenderness is noted on palpation or with deep breathing. Left chest pacemaker site, clean dry no hematoma, dressing intact HEART EXAMINATION: Regular rate and rhythm. S1, S2 heard. +3/6 systolic murmur, no gallops or rub. ABDOMEN: Soft, nontender. Positive bowel sounds. EXTREMITIES: 2+ peripheral pulses, no lower extremity edema and no calf tenderness. SKIN: right radial cath site clean dry 2+ pulses no hematoma NEUROLOGIC EXAMINATION: Patient is awake, alert and oriented x3. ASSESSMENT Syncope related to VT Status post dual chamber pacemaker ICD 07/07/2021 Hypertrophic obstructive cardiomyopathy with mean gradient 56mmHg Increasing episodes of lightheadedness last few months Elevated troponin likely related to hypertrophic cardiomyopathy, syncope, outflow obstruction. Do not suspect ACS with normal coronary angiogram 12 years ago and no angina symptoms. LVOT obstruction with mean gradient 56mmHg Monomorphic VT with syncope witnessed in hospital PLAN Device interrogated today, functioning normally, no acute events. From a cardiology perspective, patient is stable to be discharged home. Plan for Amiodarone 400 mg twice daily for 2 weeks (07/05/2021-07/19/2021), Then, amiodarone 400 mg daily for 4 weeks (start 07/20/2021), Then, amiodarone 200 mg daily thereafter Increase Toprol-XL to 100 mg in the morning and 50 mg in the evening, as long as patient can tolerate it Recommend Mavacamten for obstructive HOCM as an outpatient or further evaluation of myomectomy, patient follows with [facility]. Objective - Vital Signs Vital signs: Vital Signs Temp 98.4 F 07/08/21 04:00 Pulse 68 07/08/21 08:00 Resp 16 07/08/21 08:00 BP 129/59 07/08/21 08:00 Pulse Ox 96 07/08/21 08:00 Intake & Output 07/07/21 07/08/21 07/08/21 18:59 06:59 18:59 Intake Total 600 120 Output Total 1350 Balance 600 -1350 120 Weight 94 kg Intake: IV 600 Oral 120 Output: Urine 1350 Other: Voiding Method Toilet Toilet Toilet Urinal Urinal Urinal - Labs CBC & Chem 7: 07/08/21 07:48 07/08/21 07:48 Labs: Abnormal Lab Results - Last 24 Hours (Table) 07/08/21 07/08/21 Range/Units 07:48 07:48 Neutrophils # 8.3 H (1.3-7.7) k/uL Lymphocytes # 0.9 L (1.0-4.8) k/uL Glucose 159 H (74-99) mg/dL Total Protein 6.2 L (6.3-8.2) g/dL Albumin 3.2 L (3.5-5.0) g/dL
== END 2021-07-08 13:53 | disposition home or self-care (01) | DRG 243 ==
LOC: EC 20:02 → 3SCARD 22:29
PROVIDERS: ADMIT Internal Medicine; ATTEND Internal Medicine
PROC: 4A023N7 Measurement of Cardiac Sampling and Pressure, Left Heart, Percutaneous Approach (ICD-10-PCS; 2021-07-06)
PROC: B2111ZZ Fluoroscopy of Multiple Coronary Arteries using Low Osmolar Contrast (ICD-10-PCS; 2021-07-06)
PROC: 02HK3JZ Insertion of Pacemaker Lead into Right Ventricle, Percutaneous Approach (ICD-10-PCS; 2021-07-07)
PROC: 02H63JZ Insertion of Pacemaker Lead into Right Atrium, Percutaneous Approach (ICD-10-PCS; 2021-07-07)
PROC: B51N1ZA Fluoroscopy of Left Upper Extremity Veins using Low Osmolar Contrast, Guidance (ICD-10-PCS; 2021-07-07)
PROC: 0JH606Z Insertion of Pacemaker, Dual Chamber into Chest Subcutaneous Tissue and Fascia, Open Approach (ICD-10-PCS; principal; 2021-07-07 10:15)
DX: I42.1 Obstructive hypertrophic cardiomyopathy (principal); I47.2 Ventricular tachycardia; I11.0 Hypertensive heart disease with heart failure; R79.89 Other specified abnormal findings of blood chemistry; R55 Syncope and collapse; I45.9 Conduction disorder, unspecified; I48.91 Unspecified atrial fibrillation; L30.9 Dermatitis, unspecified; R32 Unspecified urinary incontinence; E78.5 Hyperlipidemia, unspecified; I50.9 Heart failure, unspecified; R56.9 Unspecified convulsions; Z79.82 Long term (current) use of aspirin; Z79.899 Other long term (current) drug therapy; Z87.891 Personal history of nicotine dependence; Z95.0 Presence of cardiac pacemaker; Z98.1 Arthrodesis status; Z88.8 Allergy status to other drugs, medicaments and biological substances
CPT/HCPCS: 33249; 36415; 70450; 71045; 71046; 71275; 80053; 81003; 83735; 83880; 84443; 84484; 85025; 85379; 85610; 85730; 87635; 93005; 93306; 93458; 93880; 96360; 99291

== ENCOUNTER 2021-07-11 12:01 | Observation (INO) | payer MEDICARE ==
--- NOTE | 2021-07-11 12:26 | ED ---
Extremity Problem HPI - General Chief complaint: Extremity Problem,Nontraumatic Stated complaint: L arm swollen Time Seen by Provider: 07/11/21 12:11 Source: patient, RN notes reviewed Mode of arrival: ambulatory Limitations: no limitations - History of Present Illness Initial comments: 71-year-old male with a history of cardiomyopathy status post heart cath and defibrillator placement 4 days ago states he started developing left upper extremity discomfort 2/10 severity with some swelling and erythema. He denies any fevers chills nausea vomiting sweats shortness of breath or other symptoms. No complaints no source of breath no chest pain the cath site he states was a right rest he's had no problem with that. He currently taking aspirin no other blood thinners. He did contact his specialist physicians he was instructed to come here for evaluation. MD Complaint: extremity pain, extremity swelling - Related Data Home Medications Medication Instructions Recorded Confirmed Aspirin EC [Ecotrin Low Dose] 81 mg PO DAILY 07/03/21 07/11/21 Cholecalciferol [Vitamin D3 (25 25 mcg PO DAILY 07/03/21 07/11/21 Mcg = 1000 Iu)] Multivit-Min/FA/Lycopen/Lutein 1 tab PO DAILY 07/03/21 07/11/21 [Centrum Silver Men Tablet] Omeprazole [PriLOSEC] 20 mg PO DAILY 07/03/21 07/11/21 Amiodarone [Cordarone] See Taper PO DIRECTED 07/11/21 07/11/21 Metoprolol Succinate (ER) [Toprol 50 mg PO HS 07/11/21 07/11/21 XL] Previous Rx's Medication Instructions Recorded Metoprolol Succinate (ER) [Toprol 100 mg PO DAILY #90 tab 07/07/21 XL] Allergies Allergy/AdvReac Type Severity Reaction Status Date / Time nitroglycerin Allergy SYNCOPE Verified 07/11/21 13:43 Review of Systems ROS Statement: Those systems with pertinent positive or pertinent negative responses have been documented in the HPI. ROS Other: All systems not noted in ROS Statement are negative. Past Medical History Past Medical History: Hypertension, Osteoarthritis (OA) Additional Past Medical History / Comment(s): pt was at [facility] today with thickening left heart wall-Cardiomyopathy for the past 10 years approx. Last US was new finding, and they did a MRI. Pt is supposed to follow with specialist physicians with [facility] History of Any Multi-Drug Resistant Organisms: None Reported Past Surgical History: Heart Catheterization, Hernia Repair Additional Past Surgical History / Comment(s): spinal fusion 1999, defibrillator placed 2021 Past Psychological History: No Psychological Hx Reported Smoking Status: Former smoker Past Alcohol Use History: Daily, Occasional Past Drug Use History: None Reported - Past Family History Father Family Medical History: Hyperlipidemia General Exam - General Exam Comments Initial Comments: This a well-developed well-nourished awake alert oriented 3 male Limitations: no limitations General appearance: alert, in no apparent distress Head exam: Present: atraumatic, normocephalic, normal inspection Eye exam: Present: normal appearance, PERRL, EOMI. Absent: scleral icterus, conjunctival injection, periorbital swelling ENT exam: Present: normal exam, mucous membranes moist Neck exam: Present: normal inspection, full ROM, other (No stridor JVD or bruits). Absent: tenderness, meningismus, lymphadenopathy Respiratory exam: Present: normal lung sounds bilaterally. Absent: respiratory distress, wheezes, rales, rhonchi, stridor Cardiovascular Exam: Present: regular rate, normal rhythm, normal heart sounds. Absent: systolic murmur, diastolic murmur, rubs, gallop, clicks GI/Abdominal exam: Present: soft, normal bowel sounds. Absent: distended, tenderness, guarding, rebound, rigid Extremities exam: Present: full ROM, other (Edema seen to the left upper extremity site from the mid arm down capillary refill about 2 seconds mild coolness to touch compared to the other extremity. Radial and ulnar pulses are palpable.He does demonstrate full range of motion.). Absent: tenderness, pedal edema, joint swelling, calf tenderness Back exam: Present: normal inspection Neurological exam: Present: alert, oriented X3, CN II-XII intact Psychiatric exam: Present: normal affect, normal mood Skin exam: Present: warm, dry, intact, normal color. Absent: rash Course Vital Signs 07/11/21 12:06 Temperature 97.1 F L Pulse Rate 66 Respiratory 18 Rate Blood Pressure 143/87 O2 Sat by Pulse 98 Oximetry Medical Decision Making - Medical Decision Making I did discuss case with the patient has regarding findings I also did discuss the case with Dr. Gee and Dr. Moctezuma impending cardiology consult patient will be admitted place an IV heparin. - Lab Data Result diagrams: 07/11/21 12:37 07/11/21 12:37 Lab Results 07/11/21 07/11/21 07/11/21 Range/Units 12:37 12:37 12:37 WBC 12.2 H (3.8-10.6) k/uL RBC 4.79 (4.30-5.90) m/uL Hgb 14.6 (13.0-17.5) gm/dL Hct 44.5 (39.0-53.0) % MCV 92.9 (80.0-100.0) fL MCH 30.4 (25.0-35.0) pg MCHC 32.8 (31.0-37.0) g/dL RDW 12.9 (11.5-15.5) % Plt Count 330 (150-450) k/uL MPV 8.0 Neutrophils % 77 % Lymphocytes % 12 % Monocytes % 6 % Eosinophils % 2 % Basophils % 1 % Neutrophils # 9.3 H (1.3-7.7) k/uL Lymphocytes # 1.5 (1.0-4.8) k/uL Monocytes # 0.8 (0-1.0) k/uL Eosinophils # 0.2 (0-0.7) k/uL Basophils # 0.1 (0-0.2) k/uL PT 10.4 (9.0-12.0) sec INR 1.0 (<1.2) APTT 23.5 (22.0-30.0) sec D-Dimer 3.43 H (<0.60) mg/L FEU Sodium 137 (137-145) mmol/L Potassium 4.7 (3.5-5.1) mmol/L Chloride 105 (98-107) mmol/L Carbon Dioxide 23 (22-30) mmol/L Anion Gap 9 mmol/L BUN 21 H (9-20) mg/dL Creatinine 0.82 (0.66-1.25) mg/dL Est GFR (CKD-EPI)AfAm >90 (>60 ml/min/1.73 sqM) Est GFR (CKD-EPI)NonAf >90 (>60 ml/min/1.73 sqM) Glucose 115 H (74-99) mg/dL Plasma Lactic Acid Jose (0.7-2.0) mmol/L Calcium 8.9 (8.4-10.2) mg/dL Magnesium 2.2 (1.6-2.3) mg/dL Total Bilirubin 0.7 (0.2-1.3) mg/dL AST 35 (17-59) U/L ALT 39 (4-49) U/L Alkaline Phosphatase 68 (38-126) U/L Creatine Kinase 43 L (55-170) U/L Troponin I (0.000-0.034) ng/mL C-Reactive Protein <0.5 (<1.0) mg/dL Total Protein 6.6 (6.3-8.2) g/dL Albumin 3.6 (3.5-5.0) g/dL 07/11/21 07/11/21 Range/Units 12:37 12:37 WBC (3.8-10.6) k/uL RBC (4.30-5.90) m/uL Hgb (13.0-17.5) gm/dL Hct (39.0-53.0) % MCV (80.0-100.0) fL MCH (25.0-35.0) pg MCHC (31.0-37.0) g/dL RDW (11.5-15.5) % Plt Count (150-450) k/uL MPV Neutrophils % % Lymphocytes % % Monocytes % % Eosinophils % % Basophils % % Neutrophils # (1.3-7.7) k/uL Lymphocytes # (1.0-4.8) k/uL Monocytes # (0-1.0) k/uL Eosinophils # (0-0.7) k/uL Basophils # (0-0.2) k/uL PT (9.0-12.0) sec INR (<1.2) APTT (22.0-30.0) sec D-Dimer (<0.60) mg/L FEU Sodium (137-145) mmol/L Potassium (3.5-5.1) mmol/L Chloride (98-107) mmol/L Carbon Dioxide (22-30) mmol/L Anion Gap mmol/L BUN (9-20) mg/dL Creatinine (0.66-1.25) mg/dL Est GFR (CKD-EPI)AfAm (>60 ml/min/1.73 sqM) Est GFR (CKD-EPI)NonAf (>60 ml/min/1.73 sqM) Glucose (74-99) mg/dL Plasma Lactic Acid Jose 1.0 (0.7-2.0) mmol/L Calcium (8.4-10.2) mg/dL Magnesium (1.6-2.3) mg/dL Total Bilirubin (0.2-1.3) mg/dL AST (17-59) U/L ALT (4-49) U/L Alkaline Phosphatase (38-126) U/L Creatine Kinase (55-170) U/L Troponin I 0.019 (0.000-0.034) ng/mL C-Reactive Protein (<1.0) mg/dL Total Protein (6.3-8.2) g/dL Albumin (3.5-5.0) g/dL - EKG Data EKG shows normal: sinus rhythm EKG Comments: Sinus rhythm of 62 DE interval 256 QRS 127 QT/QTC 453/458 evidence of LVH no acute ST-T wave changes - Radiology Data Radiology results: report reviewed (Imaging reviewed evidence of DVT left axillary left subclavian veins.), image reviewed Disposition Clinical Impression: Deep vein thrombosis (DVT) of upper extremity Disposition: ADMITTED IP TO THIS [facility] Condition: Stable Referrals: Nonstaff,Physician [Primary Care Provider] - 1-2 days
[2021-07-11 12:42] LABS: Basophils # (A) 0.1 k/uL (0-0.2); Basophils % (A) 1 %; Eosinophils # (A) 0.2 k/uL (0-0.7); Eosinophils % (A) 2 %; HCT 44.5 % (39.0-53.0); HGB 14.6 gm/dL (13.0-17.5); Lymphocytes # (A) 1.5 k/uL (1.0-4.8); Lymphocytes % (A) 12 %; MCH 30.4 pg (25.0-35.0); MCHC 32.8 g/dL (31.0-37.0); MCV 92.9 fL (80.0-100.0); Monocytes # (A) 0.8 k/uL (0-1.0); Monocytes % (A) 6 %; Neutrophils # (A) 9.3 k/uL (1.3-7.7); Neutrophils % (A) 77 %; Platelet Count 330 k/uL (150-450); RBC 4.79 m/uL (4.30-5.90); RDW 12.9 % (11.5-15.5); WBC 12.2 k/uL (3.8-10.6)
[2021-07-11 12:53] LABS: ALT 39 U/L (4-49); AST 35 U/L (17-59); African American GFR (CKD) >90 (>60 ml/min/1.73 sqM); Albumin 3.6 g/dL (3.5-5.0); Alkaline Phosphatase 68 U/L (38-126); Anion Gap 9 mmol/L; Blood Urea Nitrogen 21 mg/dL (9-20); C Reactive Protein <0.5 mg/dL (<1.0); Calcium 8.9 mg/dL (8.4-10.2); Carbon Dioxide 23 mmol/L (22-30); Chloride 105 mmol/L (98-107); Creatine Kinase 43 U/L (55-170); Glucose 115 mg/dL (74-99); Magnesium 2.2 mg/dL (1.6-2.3); Non-African American GFR(CKD) >90 (>60 ml/min/1.73 sqM); Potassium 4.7 mmol/L (3.5-5.1); Sodium 137 mmol/L (137-145); Total Bilirubin 0.7 mg/dL (0.2-1.3); Total Protein 6.6 g/dL (6.3-8.2)
[2021-07-11 12:57] LABS: Partial Thromboplastin Time 23.5 sec (22.0-30.0); Prothrombin Time 10.4 sec (9.0-12.0)
--- NOTE | 2021-07-11 13:30 | US ---
EXAMINATION TYPE: US venous doppler duplex UE LT DATE OF EXAM: 07/11/2021 COMPARISON: NONE CLINICAL HISTORY: Left arm pain and swelling post defibrillator placement on 07/07/2021 SIDE PERFORMED: Left arm Left Arm: Hypoechoic clot is seen in the left subclavian vein extending to the left axillary vein, be yond that the venous structures of the left upper extremity including the cephalic basilar and brachi al veins are patent. The radial and ulnar veins also appear patent. The left axillary vein is noncomp ressible. The waveforms in the left axillary and left subclavian veins is abnormal. Left internal jug ular vein is compressible and patent. IMPRESSION: Acute thrombosis of the left axillary and subclavian veins with near complete occlusion of blood flow .
--- NOTE | 2021-07-11 14:02 | XR ---
EXAMINATION TYPE: XR chest 2V DATE OF EXAM: 07/11/2021 COMPARISON: 07/07/2021 HISTORY: 71 years Male. STUDY INDICATION GIVEN: Cardiomyopathy . TECHNIQUE: Frontal and lateral chest radiographs. IMPRESSION: No focal airspace opacity, pneumothorax or effusion seen. AICD device noted. The heart size is normal. Mild central vascular prominence slightly increased in t he interval, no cephalization of the upper paratracheal vessels. No acute osseous abnormalities seen.
[2021-07-11] MEDS ORDERED: HEPARIN SODIUM 1,000 UN/ML (10ML VL) IV PRN ×2 (14:03→14:07)
[2021-07-11] MEDS ORDERED: HEPARIN SODIUM 1,000 UN/ML (10ML VL) IV ONE ×2 (14:03→14:07)
[2021-07-11] MEDS: HEPARIN SOD,PORK IN 0.45% NACL 25,000 UNIT in 0.45% NACL 1 250ML.BAG IV SCH (14:11)
[2021-07-11] MEDS ORDERED: HEPARIN SOD,PORK IN 0.45% NACL 25,000 UNIT in 0.45% NACL 1 250ML.BAG IV SCH (14:15)
[2021-07-11] MEDS ORDERED: NALOXONE 0.4 MG/ML 1 ML VIAL IV PRN ×2 (14:16→14:24)
[2021-07-11] MEDS ORDERED: ONDANSETRON 4 MG/2 ML VIAL IVP PRN (14:24)
[2021-07-11] MEDS ORDERED: LOPERAMIDE 2 MG CAP PO PRN (14:24)
[2021-07-11] MEDS ORDERED: HYDROcodone/APAP 5-325MG 1 EACH TAB PO PRN (14:24)
[2021-07-11] MEDS ORDERED: ACETAMINOPHEN TAB 325 MG TAB PO PRN (14:24)
[2021-07-11] MEDS ORDERED: MAG HYDROX/AL HYDROX/SIMETH 30 ML CUP PO PRN (14:24)
--- NOTE | 2021-07-11 14:31 | P.HPIM ---
History of Present Illness H&P Date: 07/11/21 71-year-old male with a history of cardiomyopathy status post heart cath and defibrillator placement 4 days ago states he started developing left upper extremity discomfort 2/10 severity with some swelling and erythema. He denies any fevers chills nausea vomiting sweats shortness of breath or other symptoms. No complaints no source of breath no chest pain the cath site he states was a right rest he's had no problem with that. He currently taking aspirin no other blood thinners. He did contact his chocolate temperer he was instructed to come here for evaluation. Patient feels okay denies any chest pain denies any shortness of breath patient has been recently discharged from the hospital after having an AICD placement Review of systems and systems has been reviewed all negative and positive fi ndings as per history of present illness Constitutional: No acute distress, conversant, pleasant Eyes: Anicteric sclerae, moist conjunctiva, no lid-lag PERRLA ENMT: NC/AT Oropharynx clear, no erythema, exudates Neck: Supple, FROM, no masses, or JVD No carotid bruits No thyromegaly Lungs: Clear to auscultation Clear to percussion Normal respiratory effort, no accessory muscle use Cardiovascular: Heart regular in rate and rhythm, No murmurs, gallops, or rubs No peripheral edema Abdominal: Soft Nontender, no guarding, rebound or rigidity Abdomen moving with respiration Normoactive bowel sounds No hepatomegaly, No splenomegaly No palpable mass No abdominal wall hernia noted Skin: Normal temperature, tone, texture, turgor No induration No subcutaneous nodules No rash, lesions No ulcers Extremities: No digital cyanosis No clubbing Pedal pulses intact and symmetrical Radial pulses intact and symmetrical Normal gait and station No calf tenderness left upper extremity swelling Psychiatric:Alert and oriented to person, place and time Appropriate affect Intact judgement Neuro: Muscles Strength 5/5 in all 4 extremities Sensation to light touch grossly present throughout Cranial nerves II-XII grossly intact No focal sensory deficits Acute left upper extremity DVT vascular has been consulted will continue patient on heparin Recent AICD placement cardiology has been consulted Cardiovascular Hypertension Past Medical History Past Medical History: Hypertension, Osteoarthritis (OA) Additional Past Medical History / Comment(s): pt was at [facility] today with thickening left heart wall-Cardiomyopathy for the past 10 years approx. Last US was new finding, and they did a MRI. Pt is supposed to follow with chocolate temperer with [facility] History of Any Multi-Drug Resistant Organisms: None Reported Past Surgical History: Heart Catheterization, Hernia Repair Additional Past Surgical History / Comment(s): spinal fusion 1999, defibrillator placed 2021 Past Psychological History: No Psychological Hx Reported Smoking Status: Former smoker Past Alcohol Use History: Daily, Occasional Past Drug Use History: None Reported - Past Family History Father Family Medical History: Hyperlipidemia Medications and Allergies Home Medications Medication Instructions Recorded Confirmed Type Aspirin EC [Ecotrin Low Dose] 81 mg PO DAILY 07/03/21 07/11/21 History Cholecalciferol [Vitamin D3 (25 25 mcg PO DAILY 07/03/21 07/11/21 History Mcg = 1000 Iu)] Multivit-Min/FA/Lycopen/Lutein 1 tab PO DAILY 07/03/21 07/11/21 History [Centrum Silver Men Tablet] Omeprazole [PriLOSEC] 20 mg PO DAILY 07/03/21 07/11/21 History Metoprolol Succinate (ER) [Toprol 100 mg PO DAILY #90 tab 07/07/21 07/11/21 Rx XL] Amiodarone [Cordarone] See Taper PO DIRECTED 07/11/21 07/11/21 History Metoprolol Succinate (ER) [Toprol 50 mg PO HS 07/11/21 07/11/21 History XL] Allergies Allergy/AdvReac Type Severity Reaction Status Date / Time nitroglycerin Allergy SYNCOPE Verified 07/11/21 13:43 Physical Exam Vitals: Vital Signs Temp Pulse Resp BP Pulse Ox 07/11/21 12:06 97.1 F L 66 18 143/87 98 Intake and Output 07/10/21 07/11/21 07/11/21 22:59 06:59 14:59 Other: Weight 95.254 kg Results CBC & Chem 7: 07/11/21 12:37 07/11/21 12:37 Labs: Abnormal Lab Results - Last 24 Hours (Table) 07/11/21 07/11/21 07/11/21 Range/Units 12:37 12:37 12:37 WBC 12.2 H (3.8-10.6) k/uL Neutrophils # 9.3 H (1.3-7.7) k/uL D-Dimer 3.43 H (<0.60) mg/L FEU BUN 21 H (9-20) mg/dL Glucose 115 H (74-99) mg/dL Creatine Kinase 43 L (55-170) U/L
[2021-07-11 15:45] LABS: Basophils # (A) 0.1 k/uL (0-0.2); Basophils % (A) 1 %; Eosinophils # (A) 0.3 k/uL (0-0.7); Eosinophils % (A) 2 %; HCT 45.4 % (39.0-53.0); HGB 14.9 gm/dL (13.0-17.5); Lymphocytes # (A) 2.2 k/uL (1.0-4.8); Lymphocytes % (A) 14 %; MCH 30.6 pg (25.0-35.0); MCHC 32.9 g/dL (31.0-37.0); MCV 92.9 fL (80.0-100.0); Monocytes # (A) 0.9 k/uL (0-1.0); Monocytes % (A) 6 %; Neutrophils # (A) 11.8 k/uL (1.3-7.7); Neutrophils % (A) 75 %; Platelet Count 355 k/uL (150-450); RBC 4.88 m/uL (4.30-5.90); RDW 12.8 % (11.5-15.5); WBC 15.7 k/uL (3.8-10.6)
[2021-07-11 16:27] LABS: INR 1.1 (<1.2); Prothrombin Time 11.6 sec (9.0-12.0)
[2021-07-11 16:35] LABS: Partial Thromboplastin Time 159.2 sec (22.0-30.0)
[2021-07-11] MEDS: SODIUM CHLORIDE 0.9% 1,000 ML IV SCH (16:49)
[2021-07-11] MEDS: METOPROLOL SUCCINATE (ER) 50 MG TAB.ER.24H PO SCH (20:35)
[2021-07-11] MEDS: AMIODARONE 200 MG TAB PO SCH (20:36)
[2021-07-12] MEDS: HEPARIN SOD,PORK IN 0.45% NACL 25,000 UNIT in 0.45% NACL 1 250ML.BAG IV SCH (05:34)
[2021-07-12] MEDS: SODIUM CHLORIDE 0.9% 1,000 ML IV SCH ×2 (08:01→22:55)
[2021-07-12] MEDS: ASPIRIN 81 MG PO SCH ×2 (08:31→08:37)
[2021-07-12] MEDS: PANTOPRAZOLE 40 MG TABLET PO SCH (08:31)
[2021-07-12] MEDS: AMIODARONE 200 MG TAB PO SCH ×2 (08:32→19:54)
[2021-07-12] MEDS: METOPROLOL SUCCINATE (ER) 100 MG TAB.ER.24H PO SCH (08:32)
[2021-07-12 09:06] LABS: Basophils # (A) 0.12 X 10*3/uL (0.00-0.10); Eosinophils # (A) 0.21 X 10*3/uL (0.04-0.35); Eosinophils % (A) 1.7 %; Immature Grans, Automated 0.6 %; Lymphocytes # (A) 2.06 X 10*3/uL (0.90-5.00); Lymphocytes % (A) 16.6 %; MCH 29.6 pg (27.0-32.0); MCHC 31.8 g/dL (32.0-37.0); Mean Platelet Volume 10.1 fL (9.5-12.2); Monocytes % (A) 8.1 %; NRBC Per 100 WBC 0 /100 WBCS (0.0-0.0); Neutrophils # (A) 8.92 X 10*3/uL (1.80-7.70); Platelet Count 309 X 10*3/uL (140-440); RBC 4.73 X 10*6/uL (4.40-5.60); RDW 12.9 % (11.5-14.5); WBC 12.39 X 10*3/uL (4.50-10.00)
[2021-07-12 09:19] LABS: African American GFR (CKD) 105.6 (60.0-200.0); Albumin 3.5 g/dL (3.8-4.9); Albumin/Globulin Ratio 1.52 (1.60-3.17); Anion Gap 10.8 mmol/L (10.00-18.00); BUN/Creat Ratio 18.13 Ratio (12.00-20.00); Blood Urea Nitrogen 14.5 mg/dL (9.0-27.0); Calcium 8.7 mg/dL (8.7-10.3); Carbon Dioxide 21.2 mmol/L (20.0-27.5); Globulin 2.3 g/dL (1.6-3.3); Non-African American GFR(CKD) 91.1 (60.0-200.0); Potassium 4.4 mmol/L (3.5-5.5); Total Bilirubin 0.6 mg/dL (0.30-1.20); Total Protein 5.8 g/dL (6.2-8.2)
--- NOTE | 2021-07-12 12:17 | P.PN ---
Subjective Progress Note Date: 07/12/21 Principal diagnosis: Patient feels okay no chest pain or shortness of breath 71-year-old male with a history of cardiomyopathy status post heart cath and defibrillator placement 4 days ago states he started developing left upper extremity discomfort 2/10 severity with some swelling and erythema. He denies any fevers chills nausea vomiting sweats shortness of breath or other symptoms. No complaints no source of breath no chest pain the cath site he states was a right rest he's had no problem with that. He currently taking aspirin no other blood thinners. He did contact his wheelabrator operator he was instructed to come here for evaluation. Patient feels okay denies any chest pain denies any shortness of breath patient has been recently discharged from the hospital after having an AICD placement Review of systems and systems has been reviewed all negative and positive findin gs as per history of present illness Constitutional: No acute distress, conversant, pleasant Eyes: Anicteric sclerae, moist conjunctiva, no lid-lag PERRLA ENMT: NC/AT Oropharynx clear, no erythema, exudates Neck: Supple, FROM, no masses, or JVD No carotid bruits No thyromegaly Lungs: Clear to auscultation Clear to percussion Normal respiratory effort, no accessory muscle use Cardiovascular: Heart regular in rate and rhythm, No murmurs, gallops, or rubs No peripheral edema Abdominal: Soft Nontender, no guarding, rebound or rigidity Abdomen moving with respiration Normoactive bowel sounds No hepatomegaly, No splenomegaly No palpable mass No abdominal wall hernia noted Skin: Normal temperature, tone, texture, turgor No induration No subcutaneous nodules No rash, lesions No ulcers Extremities: No digital cyanosis No clubbing Pedal pulses intact and symmetrical Radial pulses intact and symmetrical Normal gait and station No calf tenderness left upper extremity swelling Psychiatric:Alert and oriented to person, place and time Appropriate affect Intact judgement Neuro: Muscles Strength 5/5 in all 4 extremities Sensation to light touch grossly present throughout Cranial nerves II-XII grossly intact No focal sensory deficits Acute left upper extremity DVT vascular has been consulted will continue patient on heparin Recent AICD placement cardiology has been consulted Cardiovascular Hypertension We'll continue anticoagulation hopefully discharge in a.m. on eliquis Objective - Vital Signs Vital signs: Vital Signs Temp 97.9 F 07/12/21 08:07 Pulse 66 07/12/21 08:07 Resp 19 07/12/21 08:07 BP 119/71 07/12/21 08:07 Pulse Ox 94 L 07/12/21 08:07 Intake & Output 07/11/21 07/12/21 07/12/21 18:59 06:59 18:59 Intake Total 58.582 152.882 Balance 58.582 152.882 Weight 95.254 kg Intake: Intake, IV Titration 58.582 152.882 Amount Heparin Sod,Pork in 0.45% 58.582 152.882 NaCl 25,000 unit In 0.45 % NaCl 1 250ml.bag @ 18 UNITS/KG/HR 17.146 mls/hr IV .[id number] [facility] Rx#: [id number] Other: Voiding Method Toilet Toilet # Voids 0 3 - Labs CBC & Chem 7: 07/12/21 05:27 07/12/21 05:27 Labs: Abnormal Lab Results - Last 24 Hours (Table) 07/11/21 07/11/21 07/11/21 Range/Units 12:37 12:37 12:37 WBC 12.2 H (3.8-10.6) k/uL MCHC (32.0-37.0) g/dL Immature Gran # (0.00-0.04) X 10*3/uL Neutrophils # 9.3 H (1.3-7.7) k/uL Basophils # (0.00-0.10) X 10*3/uL APTT (22.0-30.0) sec D-Dimer 3.43 H (<0.60) mg/L FEU BUN 21 H (9-20) mg/dL Glucose 115 H (74-99) mg/dL Creatine Kinase 43 L (55-170) U/L Total Protein (6.2-8.2) g/dL Albumin (3.8-4.9) g/dL Albumin/Globulin Ratio (1.60-3.17) g/dL 07/11/21 07/11/21 07/11/21 Range/Units 15:29 15:29 16:41 WBC 15.7 H (3.8-10.6) k/uL MCHC (32.0-37.0) g/dL Immature Gran # (0.00-0.04) X 10*3/uL Neutrophils # 11.8 H (1.3-7.7) k/uL Basophils # (0.00-0.10) X 10*3/uL APTT 159.2 H* 101.7 H* (22.0-30.0) sec D-Dimer (<0.60) mg/L FEU BUN (9-20) mg/dL Glucose (74-99) mg/dL Creatine Kinase (55-170) U/L Total Protein (6.2-8.2) g/dL Albumin (3.8-4.9) g/dL Albumin/Globulin Ratio (1.60-3.17) g/dL 07/11/21 07/12/21 07/12/21 Range/Units 20:13 00:35 05:27 WBC 12.39 H (3.8-10.6) k/uL MCHC 31.8 L (32.0-37.0) g/dL Immature Gran # 0.08 H (0.00-0.04) X 10*3/uL Neutrophils # 8.92 H (1.3-7.7) k/uL Basophils # 0.12 H (0.00-0.10) X 10*3/uL APTT 43.7 H 47.7 H (22.0-30.0) sec D-Dimer (<0.60) mg/L FEU BUN (9-20) mg/dL Glucose (74-99) mg/dL Creatine Kinase (55-170) U/L Total Protein (6.2-8.2) g/dL Albumin (3.8-4.9) g/dL Albumin/Globulin Ratio (1.60-3.17) g/dL 07/12/21 Range/Units 05:27 WBC (3.8-10.6) k/uL MCHC (32.0-37.0) g/dL Immature Gran # (0.00-0.04) X 10*3/uL Neutrophils # (1.3-7.7) k/uL Basophils # (0.00-0.10) X 10*3/uL APTT (22.0-30.0) sec D-Dimer (<0.60) mg/L FEU BUN (9-20) mg/dL Glucose (74-99) mg/dL Creatine Kinase (55-170) U/L Total Protein 5.8 L (6.2-8.2) g/dL Albumin 3.5 L (3.8-4.9) g/dL Albumin/Globulin Ratio 1.52 L (1.60-3.17) g/dL
--- NOTE | 2021-07-12 12:21 | P.CRDCN ---
History of Present Illness Consult date: 07/12/21 Reason for Consult (text): Left upper extremity DVT status post ICD History of present illness: HISTORY OF PRESENTING ILLNESS This is a 71-year-old male with history of hypertrophic obstructive cardiomyopathy diagnosed approximately 12 years ago, normal coronary arteries by heart catheterization 12 years ago per patient, syncope. Patient previously followed with Dr. Aguayo in [facility] however then started following with a new doctor. He was initially diagnosed 12 years ago and had workup at the time with normal heart catheterization. He did have screening workup with an echo performed approximately a few months ago which showed worsening gradient apparently and therefore recommendation for cardiac MRI which was performed to afford and again showed worsening of the degree of obstruction. Therefore he was recommended to see a surgeon from [facility] which he did 07/03. Surgeon discussed myomectomy however also referral to shot core drill operator for possible medical therapy with a "new drug", likely mavacamtem. Patient was hospitalized on July 03 following a syncopal episode thought to be related to hypertrophic obstructive cardiomyopathy, less likely arrhythmogenic given progression of symptoms and progression of LVOT. Patient underwent dual-chamber ICD implantation by Dr. Mcguire on 07/07. Patient was discharged home last Tuesday and subsequently developed left arm swelling. He returned to the hospital found to have a DVT in the left upper extremity and was started on a heparin drip. Patient denies having any chest pain or shortness of breath. EKG sinus rhythm with first-degree AV block and LVH Laboratory studies: WBC 15.7. Electrolytes normal. BUN 21 creatinine 0.82. CK 43, troponin negative. C-reactive protein less than 0.5. Coronal virus PCR not detected Chest x-ray reveals no acute abnormalities. Mild central vascular prominence slightly increased. REVIEW OF SYSTEMS At the time of my exam: CONSTITUTIONAL: Denies fever or chills. CARDIOVASCULAR: Denies chest pain, shortness of breath, orthopnea, PND or palpitations. RESPIRATORY: Denies cough. GASTROINTESTINAL: Denies abdominal pain, diarrhea, constipation, nausea or vomiting. MUSCULOSKELETAL: Denies myalgias. Reports edema to the left upper extremity NEUROLOGIC: Denies numbness, tingling or weakness. ENDOCRINE: Denies fatigue, weight change, polydipsia or polyurina. GENITOURINARY: Denies burning, hematuria or urgency with micturation. HEMATOLOGIC: Denies history of anemia or bleeding. PHYSICAL EXAMINATION Vital signs reviewed. CONSTITUTIONAL: No apparent distress. HEENT: Head is normocephalic. Pupils are equal, round. Sclerae anicteric. Mucous membranes of the mouth are moist. No JVD. No carotid bruit. CHEST EXAMINATION: Lungs are clear to auscultation. No chest wall tenderness is noted on palpation or with deep breathing. HEART EXAMINATION: Regular rate and rhythm. S1, S2 heard. +3/6 systolic murmur, no gallops or rub. ABDOMEN: Soft, nontender. Positive bowel sounds. EXTREMITIES: 2+ peripheral pulses, no lower extremity edema and no calf tenderness. Left upper extremity edema NEUROLOGIC EXAMINATION: Patient is awake, alert and oriented x3. ASSESSMENT Left upper extremity DVT AICD placement 07/07 Recent admission for Syncope Hypertrophic obstructive cardiomyopathy with mean gradient 56mmHg LVOT obstruction with mean gradient 56mmHg PLAN Continue heparin drip Vascular consult Patient has been resumed on amiodarone 400 mg twice daily, aspirin 81 mg daily, Toprol-XL 100 daily and 50 at bedtime Further recommendations based on patient's clinical course Thank you kindly for this consultation (Patient scheduled from last hospitalization for followup with [facility] shot core drill operator for possible addition of Luis which does have newer data for HOCM) Nurse practitioner note has been reviewed, I agree with documented findings and plan of care. Patient was seen and examined. Past Medical History Past Medical History: Hypertension, Osteoarthritis (OA) Additional Past Medical History / Comment(s): pt was at [facility] today with thickening left heart wall-Cardiomyopathy for the past 10 years approx. Last US was new finding, and they did a MRI. Pt is supposed to follow with shot core drill operator with [facility]; melanoma CA History of Any Multi-Drug Resistant Organisms: None Reported Past Surgical History: Heart Catheterization, Hernia Repair Additional Past Surgical History / Comment(s): spinal fusion 2000, defibrillator placed 07/07/21; hernia repair; melanoma removed from right arm Past Anesthesia/Blood Transfusion Reactions: No Reported Reaction Past Psychological History: No Psychological Hx Reported Smoking Status: Former smoker Past Alcohol Use History: Occasional Past Drug Use History: None Reported - Past Family History Father Family Medical History: Hyperlipidemia Medications and Allergies Home Medications Medication Instructions Recorded Confirmed Type Aspirin EC [Ecotrin Low Dose] 81 mg PO DAILY 07/03/21 07/11/21 History Cholecalciferol [Vitamin D3 (25 25 mcg PO DAILY 07/03/21 07/11/21 History Mcg = 1000 Iu)] Multivit-Min/FA/Lycopen/Lutein 1 tab PO DAILY 07/03/21 07/11/21 History [Centrum Silver Men Tablet] Omeprazole [PriLOSEC] 20 mg PO DAILY 07/03/21 07/11/21 History Metoprolol Succinate (ER) [Toprol 100 mg PO DAILY #90 tab 07/07/21 07/11/21 Rx XL] Amiodarone [Cordarone] See Taper PO DIRECTED 07/11/21 07/11/21 History Metoprolol Succinate (ER) [Toprol 50 mg PO HS 07/11/21 07/11/21 History XL] Allergies Allergy/AdvReac Type Severity Reaction Status Date / Time nitroglycerin Allergy SYNCOPE Verified 07/11/21 13:43 Physical Exam Vitals: Vital Signs Temp Pulse Pulse Resp BP BP Pulse Ox 07/12/21 08:07 97.9 F 66 19 119/71 94 L 07/12/21 02:00 98.3 F 61 16 114/60 94 L 07/11/21 20:00 97.9 F 64 16 121/73 95 07/11/21 16:43 97.7 F 54 L 18 130/70 97 07/11/21 15:10 60 16 134/75 97 Intake and Output 07/11/21 07/12/21 07/12/21 22:59 06:59 14:59 Intake Total 58.582 152.882 Balance 58.582 152.882 Intake: Intake, IV Titration 58.582 152.882 Amount Heparin Sod,Pork in 0.45% 58.582 152.882 NaCl 25,000 unit In 0.45 % NaCl 1 250ml.bag @ 18 UNITS/KG/HR 17.146 mls/hr IV .[id number] [facility] Rx#: [id number] Other: Voiding Method Toilet Toilet # Voids 0 3 Weight 95.254 kg Results 07/12/21 05:27 07/12/21 05:27 Cardiac Enzymes 07/11/21 07/11/21 07/12/21 Range/Units 12:37 12:37 05:27 AST 35 21 (17-59) U/L Troponin I 0.019 (0.000-0.034) ng/mL Coagulation 07/11/21 07/11/21 07/11/21 Range/Units 12:37 15:29 16:41 PT 10.4 11.6 (9.0-12.0) sec APTT 23.5 159.2 H* 101.7 H* (22.0-30.0) sec 07/11/21 07/12/21 Range/Units 20:13 00:35 PT (9.0-12.0) sec APTT 43.7 H 47.7 H (22.0-30.0) sec CBC 07/11/21 07/11/21 07/12/21 Range/Units 12:37 15:29 05:27 WBC 12.2 H 15.7 H 12.39 H (3.8-10.6) k/uL RBC 4.79 4.88 4.73 (4.30-5.90) m/uL Hgb 14.6 14.9 14.0 (13.0-17.5) gm/dL Hct 44.5 45.4 44.0 (39.0-53.0) % Plt Count 330 355 309 (150-450) k/uL Comprehensive Metabolic Panel 07/11/21 07/12/21 Range/Units 12:37 05:27 Sodium 137 138 (137-145) mmol/L Potassium 4.7 4.4 (3.5-5.1) mmol/L Chloride 105 106 (98-107) mmol/L Carbon Dioxide 23 21.2 (22-30) mmol/L BUN 21 H 14.5 (9-20) mg/dL Creatinine 0.82 0.8 (0.66-1.25) mg/dL Glucose 115 H 104 (74-99) mg/dL Calcium 8.9 8.7 (8.4-10.2) mg/dL AST 35 21 (17-59) U/L ALT 39 36 (4-49) U/L Alkaline Phosphatase 68 61 (38-126) U/L Total Protein 6.6 5.8 L (6.3-8.2) g/dL Albumin 3.6 3.5 L (3.5-5.0) g/dL Current Medications Generic Name Dose Route Start Last Admin Trade Name Freq PRN Reason Stop Dose Admin Acetaminophen 650 mg 07/11/21 14:24 Acetaminophen Tab 325 Mg Tab PO Q6HR PRN Mild Pain or Fever > 100.5 Hydrocodone Bitart/Acetaminophen 1 each 07/11/21 14:24 Hydrocodone/Apap 5-325mg 1 Each Tab PO Q4HR PRN Moderate Pain Al Hydroxide/Mg Hydroxide 15 ml 07/11/21 14:24 Mag Hydrox/Al Hydrox/Simeth 30 Ml Cup PO Q6HR PRN Indigestion Amiodarone HCl 400 mg 07/11/21 21:00 07/12/21 08:32 Amiodarone 200 Mg Tab PO 07/21/21 23:00 400 mg BID SCOTT Administration Amiodarone HCl 400 mg 07/22/21 09:00 Amiodarone 200 Mg Tab PO 08/20/21 09:01 DAILY SCOTT Aspirin 81 mg 07/12/21 09:00 07/12/21 08:37 Aspirin 81 Mg PO Not Given DAILY SCOTT Heparin Sodium (Porcine) 0 unit 07/11/21 14:03 Heparin Sodium 1,000 Un/Ml (10ml Vl) IV PER PROTOCOL PRN Low PTT Protocol Heparin Sodium/Sodium Chloride 250 mls @ 17.146 mls/hr 07/11/21 14:15 07/12/21 05:34 25,000 unit/ Sodium Chloride IV 15 units/kg/hr .[id number] SCOTT 14.288 mls/hr Administration Protocol 18 UNITS/KG/HR Sodium Chloride 1,000 mls @ 60 mls/hr 07/11/21 14:30 07/12/21 08:01 Saline 0.9% IV 60 mls/hr .[id number] SCOTT Administration Loperamide HCl 2 mg 07/11/21 14:24 Loperamide 2 Mg Cap PO Q2HR PRN Loose Stool Metoprolol Succinate 50 mg 07/11/21 21:00 07/11/21 20:35 Metoprolol Succinate (Er) 50 Mg Tab.Er.24h PO 50 mg HS SCOTT Administration Metoprolol Succinate 100 mg 07/12/21 09:00 07/12/21 08:32 Metoprolol Succinate (Er) 100 Mg Tab.Er.24h PO 100 mg DAILY SCOTT Administration Naloxone HCl 0.2 mg 07/11/21 14:16 Naloxone 0.4 Mg/Ml 1 Ml Vial IV Q2M PRN Opioid Reversal Naloxone HCl 0.2 mg 07/11/21 14:24 Naloxone 0.4 Mg/Ml 1 Ml Vial IV Q2M PRN Opioid Reversal Ondansetron HCl 4 mg 07/11/21 14:24 Ondansetron 4 Mg/2 Ml Vial IVP Q8HR PRN Nausea And Vomiting Pantoprazole Sodium 40 mg 07/12/21 09:00 07/12/21 08:31 Pantoprazole 40 Mg Tablet PO 40 mg DAILY SCOTT Administration Intake and Output 07/11/21 07/12/21 07/12/21 22:59 06:59 14:59 Intake Total 58.582 152.882 Balance 58.582 152.882 Intake: Intake, IV Titration 58.582 152.882 Amount Heparin Sod,Pork in 0.45% 58.582 152.882 NaCl 25,000 unit In 0.45 % NaCl 1 250ml.bag @ 18 UNITS/KG/HR 17.146 mls/hr IV .[id number] [facility] Rx#: [id number] Other: Voiding Method Toilet Toilet # Voids 0 3 Weight 95.254 kg 07/12/21 05:27 07/12/21 05:27
[2021-07-12] MEDS ORDERED: APIXABAN 5 MG TAB PO SCH (13:00)
[2021-07-12] MEDS: APIXABAN 5 MG TAB PO SCH ×2 (13:37→19:54)
[2021-07-12] MEDS: METOPROLOL SUCCINATE (ER) 50 MG TAB.ER.24H PO SCH (19:54)
[2021-07-13 03:45] VITALS: TEMP 97.7
[2021-07-13] MEDS: METOPROLOL SUCCINATE (ER) 100 MG TAB.ER.24H PO SCH (08:43)
[2021-07-13] MEDS: APIXABAN 5 MG TAB PO SCH (08:44)
[2021-07-13] MEDS: PANTOPRAZOLE 40 MG TABLET PO SCH (08:45)
[2021-07-13] MEDS: AMIODARONE 200 MG TAB PO SCH (08:45)
[2021-07-13] MEDS: ASPIRIN 81 MG PO SCH (08:45)
[2021-07-13 10:15] LABS: Basophils # (A) 0.11 X 10*3/uL (0.00-0.10); Basophils % (A) 0.9 %; Eosinophils # (A) 0.14 X 10*3/uL (0.04-0.35); Eosinophils % (A) 1.2 %; HCT 44.2 % (39.6-50.0); Immature Grans, Automated 0.6 %; Lymphocytes # (A) 1.73 X 10*3/uL (0.90-5.00); Lymphocytes % (A) 14.5 %; MCH 29.5 pg (27.0-32.0); MCHC 31.7 g/dL (32.0-37.0); MCV 93.2 fL (80.0-97.0); Mean Platelet Volume 10.2 fL (9.5-12.2); Monocytes # (A) 0.98 X 10*3/uL (0.20-1.00); Monocytes % (A) 8.2 %; NRBC Per 100 WBC 0 /100 WBCS (0.0-0.0); Neutrophils # (A) 8.94 X 10*3/uL (1.80-7.70); Neutrophils % (A) 74.6 %; Platelet Count 324 X 10*3/uL (140-440); RBC 4.74 X 10*6/uL (4.40-5.60); WBC 11.97 X 10*3/uL (4.50-10.00)
[2021-07-13 10:26] LABS: African American GFR (CKD) 100.6 (60.0-200.0); Albumin 3.6 g/dL (3.8-4.9); Albumin/Globulin Ratio 1.57 (1.60-3.17); BUN/Creat Ratio 17.22 Ratio (12.00-20.00); Blood Urea Nitrogen 15.5 mg/dL (9.0-27.0); Globulin 2.3 g/dL (1.6-3.3); Non-African American GFR(CKD) 86.8 (60.0-200.0); Potassium 4.6 mmol/L (3.5-5.5); Total Bilirubin 0.7 mg/dL (0.30-1.20); Total Protein 5.9 g/dL (6.2-8.2)
--- NOTE | 2021-07-13 10:57 | P.GSCN ---
History of Present Illness Consult date: 07/13/21 Reason for Consult: This is 71-year-old male who presented to the emergency department 2 days ago with complaints of left upper extremity discomfort with swelling and redness. The patient underwent ICD implantation by Dr. Mcguire on 07/07/2021, he was discharged following day. After being home for couple days he noticed some swelling and redness so presented back to the emergency department for further evaluation. He underwent a venous duplex of the left upper extremity which showed acute thrombosis of the left axillary and subclavian veins with near complete occlusion of blood flow. Vascular surgery was consulted for left upper extremity DVT. Patient was initially started on a heparin drip and has been transitioned to Eliquis 10 mg twice a day. He states his swelling and redness have improved. He has been keeping his arm elevated. He denies any chest pain or shortness of breath. He is able to wiggle his fingers. Review of Systems A 14 point review of systems was completed all pertinent positives and negatives as stated in the HPI. Past Medical History Past Medical History: Hypertension, Osteoarthritis (OA) Additional Past Medical History / Comment(s): pt was at [facility] today with thickening left heart wall-Cardiomyopathy for the past 10 years approx. Last US was new finding, and they did a MRI. Pt is supposed to follow with seed district sales manager with [facility]; melanoma CA History of Any Multi-Drug Resistant Organisms: None Reported Past Surgical History: Heart Catheterization, Hernia Repair Additional Past Surgical History / Comment(s): spinal fusion 1999, defibrillator placed 07/07/21; hernia repair; melanoma removed from right arm Past Anesthesia/Blood Transfusion Reactions: No Reported Reaction Past Psychological History: No Psychological Hx Reported Smoking Status: Former smoker Past Alcohol Use History: Occasional Past Drug Use History: None Reported - Past Family History Father Family Medical History: Hyperlipidemia Medications and Allergies Home Medications Medication Instructions Recorded Confirmed Type Aspirin EC [Ecotrin Low Dose] 81 mg PO DAILY 07/03/21 07/11/21 History Cholecalciferol [Vitamin D3 (25 25 mcg PO DAILY 07/03/21 07/11/21 History Mcg = 1000 Iu)] Multivit-Min/FA/Lycopen/Lutein 1 tab PO DAILY 07/03/21 07/11/21 History [Centrum Silver Men Tablet] Omeprazole [PriLOSEC] 20 mg PO DAILY 07/03/21 07/11/21 History Metoprolol Succinate (ER) [Toprol 100 mg PO DAILY #90 tab 07/07/21 07/11/21 Rx XL] Amiodarone [Cordarone] See Taper PO DIRECTED 07/11/21 07/11/21 History Metoprolol Succinate (ER) [Toprol 50 mg PO HS 07/11/21 07/11/21 History XL] Apixaban [Eliquis] 5 mg PO BID 30 Days #60 tab 07/13/21 Rx Apixaban [Eliquis] 10 mg PO BID 14 Days #28 tab 07/13/21 Rx Allergies Allergy/AdvReac Type Severity Reaction Status Date / Time nitroglycerin Allergy SYNCOPE Verified 07/11/21 13:43 Surgical - Exam Vital Signs Temp Pulse Resp BP Pulse Ox 97.1 F L 66 18 143/87 98 07/11/21 12:06 07/11/21 12:06 07/11/21 12:06 07/11/21 12:06 07/11/21 12:06 General appearance: The patient is alert, oriented, appears in no acute distress. HET: Head is normocephalic and atraumatic. Pupils are equal and reactive. Neck: Supple without lymphadenopathy. Trachea midline. Heart: S1 S2. Regular rate and rhythm. Lungs: Clear to auscultation bilaterally. Abdomen: Soft, nontender, nondistended. Extremities: Normal skin color and turgor. No cyanosis, rash, ulceration, clubbing, or edema. Radial pulses are 2/4 bilaterally. Left upper extremity with some mild swelling, mild erythema. Patient has full range of motion. Neurological: No focal deficits. Strength and sensation are grossly intact. Results - Labs 07/13/21 04:56 07/13/21 04:56 Abnormal Lab Results - Last 24 Hours (Table) 07/12/21 Range/Units 05:27 Total Protein 5.8 L (6.2-8.2) g/dL Albumin 3.5 L (3.8-4.9) g/dL Albumin/Globulin Ratio 1.52 L (1.60-3.17) g/dL Diabetes panel 07/12/21 Range/Units 05:27 Sodium 138 (135-145) mmol/L Potassium 4.4 (3.5-5.5) mmol/L Chloride 106 (96-109) mmol/L Carbon Dioxide 21.2 (20.0-27.5) mmol/L BUN 14.5 (9.0-27.0) mg/dL Creatinine 0.8 (0.6-1.5) mg/dL Glucose 104 (70-110) mg/dL Calcium 8.7 (8.7-10.3) mg/dL AST 21 (14-35) U/L ALT 36 (10-49) U/L Alkaline Phosphatase 61 (41-126) U/L Total Protein 5.8 L (6.2-8.2) g/dL Albumin 3.5 L (3.8-4.9) g/dL Calcium panel 07/12/21 Range/Units 05:27 Calcium 8.7 (8.7-10.3) mg/dL Albumin 3.5 L (3.8-4.9) g/dL Pituitary panel 07/12/21 Range/Units 05:27 Sodium 138 (135-145) mmol/L Potassium 4.4 (3.5-5.5) mmol/L Chloride 106 (96-109) mmol/L Carbon Dioxide 21.2 (20.0-27.5) mmol/L BUN 14.5 (9.0-27.0) mg/dL Creatinine 0.8 (0.6-1.5) mg/dL Glucose 104 (70-110) mg/dL Calcium 8.7 (8.7-10.3) mg/dL Adrenal panel 07/12/21 Range/Units 05:27 Sodium 138 (135-145) mmol/L Potassium 4.4 (3.5-5.5) mmol/L Chloride 106 (96-109) mmol/L Carbon Dioxide 21.2 (20.0-27.5) mmol/L BUN 14.5 (9.0-27.0) mg/dL Creatinine 0.8 (0.6-1.5) mg/dL Glucose 104 (70-110) mg/dL Calcium 8.7 (8.7-10.3) mg/dL Total Bilirubin 0.60 (0.30-1.20) mg/dL AST 21 (14-35) U/L ALT 36 (10-49) U/L Alkaline Phosphatase 61 (41-126) U/L Total Protein 5.8 L (6.2-8.2) g/dL Albumin 3.5 L (3.8-4.9) g/dL - Imaging Comments: Left upper extremity venous duplex: Acute thrombosis of the left axillary and subclavian veins with near complete occlusion of the blood flow Assessment and Plan Assessment: 1. Left upper extremity DVT 2. Status post recent ICD implantation 07/07/2021 Plan: 1. Continue symptomatic and supportive care 2. Continue Eliquis 10 mg twice a day, transition to 5 mg BID after 7 days 3. Elevate left upper extremity, May apply compression stocking as needed 4. No vascular surgical intervention indicated Thank you for this consultation, we will sign off at this time. The impression and plan of care has been dictated as directed. Dr. Torres I performed a history and examination of this patient, discussed the same with the dictator. I agree with the dictator's note ,documented as a scribe. Any additional findings or plans will be noted.
[2021-07-13 11:09] VITALS: BP 103/64; PULSE 62; RESP 18
--- NOTE | 2021-07-13 11:42 | P.DS ---
Providers Date of admission: 07/11/21 14:16 Expected date of discharge: 07/13/21 Attending physician: Chelsea Gee MD Consults: 07/11/21 14:03 Consult Physician Routine Consulting Provider: Dharmesh Cunha Consult Reason/Comments: occluded DVT Do you want consulting provider notified?: Yes 07/11/21 14:19 Consult Physician Routine Consulting Provider: Josh Mcguire Consult Reason/Comments: Left upper extremity DVT post ICD placement Do you want consulting provider notified?: Yes Primary care physician: Physician Nonstaff Hospital Course: 71-year-old man was admitted to the hospital with left arm DVT started on IV heparin the condition of the patient improved patient has been evaluated by vascular surgery and cardiology Constitutional: No acute distress, conversant, pleasant Eyes: Anicteric sclerae, moist conjunctiva, no lid-lag PERRLA ENMT: NC/AT Oropharynx clear, no erythema, exudates Neck: Supple, FROM, no masses, or JVD No carotid bruits No thyromegaly Lungs: Clear to auscultation Clear to percussion Normal respiratory effort, no accessory muscle use Cardiovascular: Heart regular in rate and rhythm, No murmurs, gallops, or rubs No peripheral edema Abdominal: Soft Nontender, no guarding, rebound or rigidity Abdomen moving with respiration Normoactive bowel sounds No hepatomegaly, No splenomegaly No palpable mass No abdominal wall hernia noted Skin: Normal temperature, tone, texture, turgor No induration No subcutaneous nodules No rash, lesions No ulcers Extremities: No digital cyanosis No clubbing Pedal pulses intact and symmetrical Radial pulses intact and symmetrical Normal gait and station No calf tenderness Psychiatric:Alert and oriented to person, place and time Appropriate affect Intact judgement Neuro: Muscles Strength 5/5 in all 4 extremities Sensation to light touch grossly present throughout Cranial nerves II-XII grossly intact No focal sensory deficits Acute DVT in the left upper extremity clinically improved patient will be discharged on request a follow-up with primary care physician Status post ICD placement Patient Condition at Discharge: Stable Plan - Discharge Summary Discharge Rx Participant: Yes New Discharge Prescriptions: New Apixaban [Eliquis] 10 mg PO BID 14 Days #28 tab Apixaban [Eliquis] 5 mg PO BID 30 Days #60 tab Continue Omeprazole [PriLOSEC] 20 mg PO DAILY Multivit-Min/FA/Lycopen/Lutein [Centrum Silver Men Tablet] 1 tab PO DAILY Cholecalciferol [Vitamin D3 (25 Mcg = 1000 Iu)] 25 mcg PO DAILY Aspirin EC [Ecotrin Low Dose] 81 mg PO DAILY Metoprolol Succinate (ER) [Toprol XL] 100 mg PO DAILY #90 tab Amiodarone [Cordarone] See Taper PO DIRECTED Metoprolol Succinate (ER) [Toprol XL] 50 mg PO HS Discharge Medication List Aspirin EC [Ecotrin Low Dose] 81 mg PO DAILY 07/03/21 [History] Cholecalciferol [Vitamin D3 (25 Mcg = 1000 Iu)] 25 mcg PO DAILY 07/03/21 [History] Multivit-Min/FA/Lycopen/Lutein [Centrum Silver Men Tablet] 1 tab PO DAILY 07/03/21 [History] Omeprazole [PriLOSEC] 20 mg PO DAILY 07/03/21 [History] Metoprolol Succinate (ER) [Toprol XL] 100 mg PO DAILY #90 tab 07/07/21 [Rx] Amiodarone [Cordarone] See Taper PO DIRECTED 07/11/21 [History] Metoprolol Succinate (ER) [Toprol XL] 50 mg PO HS 07/11/21 [History] Apixaban [Eliquis] 5 mg PO BID 30 Days #60 tab 07/13/21 [Rx] Apixaban [Eliquis] 10 mg PO BID 14 Days #28 tab 07/13/21 [Rx] Follow up Appointment(s)/Referral(s): Nonstaff,Physician [Primary Care Provider] - 1-2 days Activity/Diet/Wound Care/Special Instructions: PCP: Dr. Lott - [phone] - 1-2 days Eliquis copay is $38/month. First month is free with the Eliquis coupon at [facility]. Discharge Disposition: HOME SELF-CARE
--- NOTE | 2021-07-13 12:51 | P.PN ---
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 Patient previously followed with Dr. Aguayo in [facility] however then started following with a new doctor at [facility]. Patient recently admitted (07/03/21-07/08/21) with syncope related to ventricular tachycardia. Echo performed revealed EF 60% with LVOT gradient with a mean gradient >56. 07/06/21, Patient underwent cardiac catheterization with Dr. Bowman which revealed normal coronary arteries, elevated left-sided filling pressures, peaked peak resting LVOT gradient 79 mmHg. 07/07/21, Patient underwent Dual-chamber ICD implantation with Dr. Mcguire for management of risk of sudden cardiac /bradycardia. He is re-admitted to the hospital for left upper extremity DVT. 07/13/21: Patient seen and examined at bedside, no acute distress. His swelling in the left upper extremity has improved. He denies any chest pain or shortness of breath. Patient is currently maintained on amiodarone 400 mg twice a day, as pirin 81 mg daily, Eliquis 10 mg twice a day, metoprolol succinate 50 mg nightly metoprolol 1600 mg in the morning. Labs: WBC 11.9, hemoglobin 14, platelets 224, sodium 138, potassium 4.6, BUN 15, serum creatinine 0.9 PHYSICAL EXAMINATION Vital signs reviewed. CONSTITUTIONAL: No apparent distress. HEENT: Neck Supple. No JVD. CHEST EXAMINATION: Lungs are clear to auscultation. No chest wall tenderness is noted on palpation or with deep breathing. Left chest pacemaker site, clean dry no hematoma, dressing intact HEART EXAMINATION: Regular rate and rhythm. S1, S2 heard. +3/6 systolic murmur, no gallops or rub. ABDOMEN: Soft, nontender. Positive bowel sounds. EXTREMITIES: 2+ peripheral pulses, no lower extremity edema, RUE edema present, improved from admission, and no calf tenderness. SKIN: right radial cath site clean dry 2+ pulses no hematoma NEUROLOGIC EXAMINATION: Patient is awake, alert and oriented x3. 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 Bowman on July 22, 2021 Recommend Mavacamten for obstructive HOCM as an outpatient or further evaluation of myomectomy, patient follows with [facility] Microwave Radio Technician. Objective - Vital Signs Vital signs: Vital Signs Temp 97.7 F 07/13/21 08:00 Pulse 62 07/13/21 08:00 Resp 18 07/13/21 08:00 BP 103/64 07/13/21 08:00 Pulse Ox 96 07/13/21 08:00 Intake & Output 07/12/21 07/13/21 07/13/21 18:59 06:59 18:59 Other: Voiding Method Toilet Toilet Toilet # Voids 5 3 - Labs CBC & Chem 7: 07/13/21 04:56 07/13/21 04:56 Labs: Abnormal Lab Results - Last 24 Hours (Table) 07/13/21 07/13/21 Range/Units 04:56 04:56 WBC 11.97 H (4.50-10.00) X 10*3/uL MCHC 31.7 L (32.0-37.0) g/dL Immature Gran # 0.07 H (0.00-0.04) X 10*3/uL Neutrophils # 8.94 H (1.80-7.70) X 10*3/uL Basophils # 0.11 H (0.00-0.10) X 10*3/uL Total Protein 5.9 L (6.2-8.2) g/dL Albumin 3.6 L (3.8-4.9) g/dL Albumin/Globulin Ratio 1.57 L (1.60-3.17) g/dL
[2021-07-22] MEDS ORDERED: AMIODARONE 200 MG TAB PO SCH (09:00)
== END 2021-07-13 12:48 | disposition home or self-care (01) ==
LOC: EC 12:01 → 4SSUR 14:16 → INTOOBSV 14:16 → 4SSUR 14:55 → UNDODISIN 07-13 12:48
PROVIDERS: ADMIT Internal Medicine; ATTEND Internal Medicine
DX: I82.622 Acute embolism and thrombosis of deep veins of left upper extremity (principal); I42.1 Obstructive hypertrophic cardiomyopathy; I44.0 Atrioventricular block, first degree; I10 Essential (primary) hypertension; M19.90 Unspecified osteoarthritis, unspecified site; Z20.822 Contact with and (suspected) exposure to COVID-19; Z79.82 Long term (current) use of aspirin; Z79.899 Other long term (current) drug therapy; Z88.8 Allergy status to other drugs, medicaments and biological substances; Z98.1 Arthrodesis status; Z85.820 Personal history of malignant melanoma of skin; Z87.19 Personal history of other diseases of the digestive system; Z95.810 Presence of automatic (implantable) cardiac defibrillator; Z87.891 Personal history of nicotine dependence; Z98.890 Other specified postprocedural states; Z83.49 Family history of other endocrine, nutritional and metabolic diseases
CPT/HCPCS: 96366 ×3; 96376; 96365; 99285; 36415; 93005; 85379; 80053 ×3; 82550; 83605; 83735; 84484; 85025 ×3; 85610; 85730 ×3; 86140; 87635; 71046; 93971; G0378 ×3; J1644 ×3; 96374

== ENCOUNTER 2021-07-30 18:25 | Observation (INO) | payer MEDICARE ==
[2021-07-30] MEDS ORDERED: ACETAMINOPHEN TAB 325 MG TAB PO STA (18:59)
--- NOTE | 2021-07-30 19:25 | XR ---
EXAMINATION TYPE: XR chest 2V DATE OF EXAM: 07/30/2021 COMPARISON: 07/11/2021 HISTORY: Cough TECHNIQUE: Frontal and lateral views of the chest are obtained. FINDINGS: There is no focal air space opacity, pleural effusion, or pneumothorax seen. The cardiac silhouette size is within normal limits. Stable left AICD. The osseous structures are intact. IMPRESSION: No acute cardiopulmonary process.
[2021-07-30 20:04] LABS: Basophils % (A) 0 %; Eosinophils # (A) 0.1 k/uL (0-0.7); Eosinophils % (A) 1 %; HCT 37.4 % (39.0-53.0); HGB 12.2 gm/dL (13.0-17.5); Lymphocytes # (A) 0.9 k/uL (1.0-4.8); Lymphocytes % (A) 7 %; MCH 29.7 pg (25.0-35.0); MCHC 32.7 g/dL (31.0-37.0); Mean Platelet Volume 8.1; Monocytes # (A) 0.4 k/uL (0-1.0); Monocytes % (A) 3 %; Neutrophils # (A) 10.9 k/uL (1.3-7.7); Neutrophils % (A) 87 %; Platelet Count 185 k/uL (150-450); RBC 4.12 m/uL (4.30-5.90); RDW 13.8 % (11.5-15.5); WBC 12.6 k/uL (3.8-10.6)
[2021-07-30 20:09] LABS: C Reactive Protein 2.5 mg/dL (<1.0); Calcium 8.1 mg/dL (8.4-10.2)
[2021-07-30 20:10] LABS: Influenza A Not Detected (Not Detectd); Influenza B Not Detected (Not Detectd)
--- NOTE | 2021-07-30 21:46 | ED ---
URI HPI - General Chief Complaint: Upper Respiratory Infection Stated Complaint: Cough, Fatigue, tired, just got defibrillator Time Seen by Provider: 07/30/21 18:50 Source: patient, RN notes reviewed Mode of arrival: ambulatory Limitations: no limitations - History of Present Illness Initial Comments: This is a 71-year-old male who presents to the emergency department with a cough for the last 1.5 weeks. He has been taking cetirizine and [id number] Sudafed, which has offered minor improvement to symptoms. His touring production manager is aware of the ceterizine and sudafed and is okay with him taking them. During this time period, he has seen his primary care physician and his touring production manager. This touring production manager at the [facility] advised he come to the emergency department for further evaluation. Patient denies any shortness of breath, sweta st pain or chest pressure, paroxysmal nocturnal dyspnea, orthopnea, leg swelling, or sputum production. He has noticed increased fatigue for the last month, since he got out of the hospital for his DVT. He does have an appointment scheduled with his touring production manager in 6 days. MD Complaint: cough Improves With: OTC cold medicine - Related Data Home Medications Medication Instructions Recorded Confirmed Aspirin EC [Ecotrin Low Dose] 81 mg PO DAILY 07/03/21 07/30/21 Cholecalciferol [Vitamin D3 (25 25 mcg PO DAILY 07/03/21 07/30/21 Mcg = 1000 Iu)] Multivit-Min/FA/Lycopen/Lutein 1 tab PO DAILY 07/03/21 07/30/21 [Centrum Silver Men Tablet] Omeprazole [PriLOSEC] 20 mg PO DAILY 07/03/21 07/30/21 Amiodarone [Cordarone] See Taper PO DIRECTED 07/11/21 07/30/21 Metoprolol Succinate (ER) [Toprol 50 mg PO HS 07/11/21 07/30/21 XL] Previous Rx's Medication Instructions Recorded Metoprolol Succinate (ER) [Toprol 100 mg PO DAILY #90 tab 07/07/21 XL] Apixaban [Eliquis] 5 mg PO BID 30 Days #60 tab 07/13/21 Allergies Allergy/AdvReac Type Severity Reaction Status Date / Time nitroglycerin Allergy SYNCOPE Verified 07/30/21 21:10 Review of Systems ROS Statement: Those systems with pertinent positive or pertinent negative responses have been documented in the HPI. ROS Other: All systems not noted in ROS Statement are negative. Constitutional: Denies: fever, chills ENT: Denies: ear pain, throat pain Respiratory: Reports: cough. Denies: dyspnea Cardiovascular: Denies: chest pain, palpitations, dyspnea on exertion, orthopnea, edema, paroxysmal nocturnal dyspnea Endocrine: Reports: fatigue Gastrointestinal: Denies: abdominal pain, nausea, vomiting, diarrhea Genitourinary: Denies: urgency, dysuria Skin: Denies: rash, lesions Neurological: Denies: headache Past Medical History Past Medical History: Deep Vein Thrombosis (DVT), Hypertension, Osteoarthritis (OA) Additional Past Medical History / Comment(s): pt was at [facility] today with thickening left heart wall-Cardiomyopathy for the past 10 years approx. Last US was new finding, and they did a MRI. Pt is supposed to follow with touring production manager with [facility]; melanoma CA History of Any Multi-Drug Resistant Organisms: None Reported Past Surgical History: Heart Catheterization, Hernia Repair Additional Past Surgical History / Comment(s): spinal fusion 1999, defibrillator placed 07/07/21; hernia repair; melanoma removed from right arm Past Anesthesia/Blood Transfusion Reactions: No Reported Reaction Past Psychological History: No Psychological Hx Reported Smoking Status: Former smoker Past Alcohol Use History: Occasional Past Drug Use History: None Reported - Past Family History Father Family Medical History: Hyperlipidemia General Exam Limitations: no limitations General appearance: alert, in no apparent distress Head exam: Present: atraumatic, normocephalic, normal inspection Respiratory exam: Present: decreased breath sounds. Absent: respiratory distress, wheezes, rales, rhonchi, stridor Cardiovascular Exam: Present: regular rate, normal rhythm, normal heart sounds. Absent: systolic murmur, diastolic murmur, rubs, gallop, clicks Neurological exam: Present: alert, oriented X3, CN II-XII intact Psychiatric exam: Present: normal affect, normal mood Skin exam: Present: warm, dry, intact, normal color. Absent: rash Course Vital Signs 07/30/21 07/30/21 18:32 21:26 Temperature 99.8 F H 98.0 F Pulse Rate 74 71 Respiratory 18 16 Rate Blood Pressure 112/70 112/72 O2 Sat by Pulse 98 95 Oximetry Medical Decision Making - Medical Decision Making This is a 71-year-old male who presents to the emergency department for a cough. Patient had a slightly elevated temperature, and was given a dose of Tylenol. Patient noted that his cough seemed to improve after the Tylenol. Lab work and chest x-ray obtained. Lab work revealed a mildly elevated white blood cell count and the chest x-ray revealed no acute cardiopulmonary process. Aside from decreased breath sounds, his pulmonary exam was unremarkable. His BNP was significantly higher than it was one month ago. Discussed with the patient and his , that this indicates there is more strain on his heart. However, the patient is not in acute decompensated heart failure nor is he exhibiting symptoms associated with heart failure that we would treat at this time, such as pulmonary edema and lower extremity edema. Given the elevated WBCs and higher temperature, this is most likely a viral process. The patient's is very anxious about the increased BNP value and would like him admitted for observation, however the patient would like to be discharged. I spoke with Dr. Mills, who is agreeable to admitting the patient for observation. - Lab Data Result diagrams: 07/30/21 19:40 07/30/21 19:40 Lab Results 07/30/21 07/30/21 07/30/21 Range/Units 19:32 19:40 19:40 WBC 12.6 H (3.8-10.6) k/uL RBC 4.12 L (4.30-5.90) m/uL Hgb 12.2 L (13.0-17.5) gm/dL Hct 37.4 L (39.0-53.0) % MCV 91.0 (80.0-100.0) fL MCH 29.7 (25.0-35.0) pg MCHC 32.7 (31.0-37.0) g/dL RDW 13.8 (11.5-15.5) % Plt Count 185 (150-450) k/uL MPV 8.1 Neutrophils % 87 % Lymphocytes % 7 % Monocytes % 3 % Eosinophils % 1 % Basophils % 0 % Neutrophils # 10.9 H (1.3-7.7) k/uL Lymphocytes # 0.9 L (1.0-4.8) k/uL Monocytes # 0.4 (0-1.0) k/uL Eosinophils # 0.1 (0-0.7) k/uL Basophils # 0.0 (0-0.2) k/uL Sodium 134 L (137-145) mmol/L Potassium 4.0 (3.5-5.1) mmol/L Chloride 104 (98-107) mmol/L Carbon Dioxide 21 L (22-30) mmol/L Anion Gap 9 mmol/L BUN 19 (9-20) mg/dL Creatinine 1.13 (0.66-1.25) mg/dL Est GFR (CKD-EPI)AfAm 77 (>60 ml/min/1.73 sqM) Est GFR (CKD-EPI)NonAf 66 (>60 ml/min/1.73 sqM) Glucose 148 H (74-99) mg/dL Plasma Lactic Acid Jose (0.7-2.0) mmol/L Calcium 8.1 L (8.4-10.2) mg/dL Creatine Kinase 35 L (55-170) U/L Troponin I (0.000-0.034) ng/mL C-Reactive Protein 2.5 H (<1.0) mg/dL NT-Pro-B Natriuret Pep pg/mL Influenza Type A (PCR) Not Detected (Not Detectd) Influenza Type B (PCR) Not Detected (Not Detectd) RSV (PCR) Not Detected (Not Detectd) SARS-CoV-2 (PCR) Not Detected (Not Detectd) 07/30/21 07/30/21 07/30/21 Range/Units 19:40 19:40 19:40 WBC (3.8-10.6) k/uL RBC (4.30-5.90) m/uL Hgb (13.0-17.5) gm/dL Hct (39.0-53.0) % MCV (80.0-100.0) fL MCH (25.0-35.0) pg MCHC (31.0-37.0) g/dL RDW (11.5-15.5) % Plt Count (150-450) k/uL MPV Neutrophils % % Lymphocytes % % Monocytes % % Eosinophils % % Basophils % % Neutrophils # (1.3-7.7) k/uL Lymphocytes # (1.0-4.8) k/uL Monocytes # (0-1.0) k/uL Eosinophils # (0-0.7) k/uL Basophils # (0-0.2) k/uL Sodium (137-145) mmol/L Potassium (3.5-5.1) mmol/L Chloride (98-107) mmol/L Carbon Dioxide (22-30) mmol/L Anion Gap mmol/L BUN (9-20) mg/dL Creatinine (0.66-1.25) mg/dL Est GFR (CKD-EPI)AfAm (>60 ml/min/1.73 sqM) Est GFR (CKD-EPI)NonAf (>60 ml/min/1.73 sqM) Glucose (74-99) mg/dL Plasma Lactic Acid Jose 0.8 (0.7-2.0) mmol/L Calcium (8.4-10.2) mg/dL Creatine Kinase (55-170) U/L Troponin I 0.017 (0.000-0.034) ng/mL C-Reactive Protein (<1.0) mg/dL NT-Pro-B Natriuret Pep 8140 pg/mL Influenza Type A (PCR) (Not Detectd) Influenza Type B (PCR) (Not Detectd) RSV (PCR) (Not Detectd) SARS-CoV-2 (PCR) (Not Detectd) Disposition Clinical Impression: Bronchitis, CHF (congestive heart failure) Disposition: ADMITTED IP TO THIS HOSP Referrals: Nonstaff,Physician [Primary Care Provider] - 1-2 days
[2021-07-31] MEDS ORDERED: oxyCODONE-APAP 5-325MG 1 EACH TAB PO PRN (00:12)
[2021-07-31] MEDS ORDERED: ONDANSETRON 4 MG/2 ML VIAL IVP PRN (00:12)
[2021-07-31] MEDS ORDERED: NALOXONE 0.4 MG/ML 1 ML VIAL IV PRN (00:12)
[2021-07-31] MEDS ORDERED: HYDROcodone/APAP 5-325MG 1 EACH TAB PO PRN (00:12)
[2021-07-31] MEDS ORDERED: ALPRAZolam 0.25 MG TAB PO PRN (00:12)
[2021-07-31] MEDS: ACETAMINOPHEN TAB 325 MG TAB PO PRN ×3 (05:13→21:27)
--- NOTE | 2021-07-31 05:46 | P.HPIM ---
History of Present Illness H&P Date: 07/31/21 Chief Complaint: cough 71-year-old male with recent episode of syncope with hocm later he developed ventricular tachycardia requiring insertion of defibrillator Patient was hospitalized mid June 2021 for above issues which was later complicated with left upper extremity DVT for which she was started on Eliquis Patient has an appointment for follow-up with [facility] next week however he's been having nonproductive cough all day long worse at night when he lays down for the past 1 or 2 weeks for which she decided come in to the hospital for evaluation he also reports no fevers no chills no chest pain or trouble breathing but does report feeling fatigued and tired is very concerned about his cardiac health and requested that he gets admitted to see the gusset maker. Otherwise he claims to be compliant with his medications no recent changes no recent travel no recent sickness or illness other than his recent hospitalization mid June as mentioned above. Patient denies any GI bleeding denies any nausea vomiting or abdominal pain Workup in the ED showed slightly elevated white count hemoglobin with mild anemia 12.2 and elevated proBNP Review of Systems Pertinent positives as noted in HPI. 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 Last US was new finding, and they did a MRI. Pt is supposed to follow with gusset maker with [facility]; melanoma CA History of Any Multi-Drug Resistant Organisms: None Reported Past Surgical History: Heart Catheterization, Hernia Repair Additional Past Surgical History / Comment(s): spinal fusion 1999, defibrillator placed 07/07/21; hernia repair; melanoma removed from right arm Past Anesthesia/Blood Transfusion Reactions: No Reported Reaction Past Psychological History: No Psychological Hx Reported Smoking Status: Former smoker Past Alcohol Use History: Occasional Past Drug Use History: None Reported - Past Family History Father Family Medical History: Hyperlipidemia Medications and Allergies Home Medications Medication Instructions Recorded Confirmed Type Aspirin EC [Ecotrin Low Dose] 81 mg PO DAILY 07/03/21 07/30/21 History Cholecalciferol [Vitamin D3 (25 25 mcg PO DAILY 07/03/21 07/30/21 History Mcg = 1000 Iu)] Multivit-Min/FA/Lycopen/Lutein 1 tab PO DAILY 07/03/21 07/30/21 History [Centrum Silver Men Tablet] Omeprazole [PriLOSEC] 20 mg PO DAILY 07/03/21 07/30/21 History Metoprolol Succinate (ER) [Toprol 100 mg PO DAILY #90 tab 07/07/21 07/30/21 Rx XL] Amiodarone [Cordarone] See Taper PO DIRECTED 07/11/21 07/30/21 History Metoprolol Succinate (ER) [Toprol 50 mg PO HS 07/11/21 07/30/21 History XL] Apixaban [Eliquis] 5 mg PO BID 30 Days #60 tab 07/13/21 07/30/21 Rx Allergies Allergy/AdvReac Type Severity Reaction Status Date / Time nitroglycerin Allergy SYNCOPE Verified 07/30/21 21:10 Physical Exam Vitals: Vital Signs Temp Pulse Resp BP Pulse Ox 07/31/21 03:20 98.0 F 64 19 132/73 97 07/31/21 00:00 97.8 F 61 16 119/71 97 07/30/21 21:26 98.0 F 71 16 112/72 95 07/30/21 18:32 99.8 F H 74 18 112/70 98 Intake and Output 07/30/21 07/30/21 07/31/21 14:59 22:59 06:59 Other: Weight 95.254 kg 95.254 kg Constitutional: No acute distress, conversant, pleasant Eyes: Anicteric sclerae, moist conjunctiva, Pupils equal round reactive to light ENMT: NC/AT Oropharynx clear, no erythema, or exudates Neck: Supple, no masses, or JVD No carotid bruits No thyromegaly Lungs: Clear to auscultation Clear to percussion Normal respiratory effort, no accessory muscle use Cardiovascular: Heart regular in rate and rhythm, Systolic murmurs, no gallops, or rubs No peripheral edema Abdominal: Soft Nontender, no guarding, rebound or rigidity Abdomen moving with respiration Normoactive bowel sounds No hepatomegaly, No splenomegaly No palpable mass No abdominal wall hernia noted Skin: Normal temperature, tone, texture, turgor No induration No subcutaneous nodules No rash, lesions No ulcers Extremities: No digital cyanosis No clubbing Pedal pulses intact and symmetrical Radial pulses intact and symmetrical No calf tenderness Psychiatric: Alert and oriented to person, place and time Appropriate affect fair judgement Neuro Muscles Strength 5/5 in all 4 extremities Sensation to light touch grossly present throughout Cranial nerves II-XII grossly intact No focal sensory deficits Lymphatics: no palpable cervical or supraclavicular , or inguinal lymph nodes Results CBC & Chem 7: 07/30/21 19:40 07/30/21 19:40 Labs: Abnormal Lab Results - Last 24 Hours (Table) 07/30/21 07/30/21 Range/Units 19:40 19:40 WBC 12.6 H (3.8-10.6) k/uL RBC 4.12 L (4.30-5.90) m/uL Hgb 12.2 L (13.0-17.5) gm/dL Hct 37.4 L (39.0-53.0) % Neutrophils # 10.9 H (1.3-7.7) k/uL Lymphocytes # 0.9 L (1.0-4.8) k/uL Sodium 134 L (137-145) mmol/L Carbon Dioxide 21 L (22-30) mmol/L Glucose 148 H (74-99) mg/dL Calcium 8.1 L (8.4-10.2) mg/dL Creatine Kinase 35 L (55-170) U/L C-Reactive Protein 2.5 H (<1.0) mg/dL Thrombosis Risk Factor Assmnt - Choose All That Apply Each Factor Represents 1 point: Obesity (BMI >25) Other Risk Factors: Yes Each Risk Factor Represents 2 Points: Age 61-74 years Each Risk Factor Represents 3 Points: History of DVT/PE Other congenital or acquired thrombophilia - If yes, enter type in comment: No Thrombosis Risk Factor Assessment Total Risk Factor Score: 6 Thrombosis Risk Factor Assessment Level: High Risk Assessment and Plan Assessment: Generalized weakness Nonproductive cough HOCM status post episodes of V. tach and unresponsiveness status post defibrillator insertion Subacute DVT on Eliquis Plan Supportive care Cardiology consult Resume home medications metoprolol amiodarone Resume Eliquis for acute DVT Blood work showed slight leukocytosis no fever chest x-ray unremarkable Mild anemia denies any GI bleeding She is requesting to be evaluated by cardiology as he is unable to get axis to appointment for which she was admitted under observation for monitoring he is reporting excessive generalized weakness and fatigue with a nagging subacute cough for which she is requesting evaluation Full code DVT prophylaxis currently on Eliquis for DVT Anticipated length of stay less than 2 midnights
[2021-07-31] MEDS: PANTOPRAZOLE 40 MG TABLET PO SCH (06:54)
[2021-07-31] MEDS: ASPIRIN 81 MG PO SCH (06:55)
[2021-07-31] MEDS: APIXABAN 5 MG TAB PO SCH ×2 (06:55→20:18)
[2021-07-31] MEDS: METOPROLOL SUCCINATE (ER) 100 MG TAB.ER.24H PO SCH (07:43)
[2021-07-31] MEDS ORDERED: AMIODARONE 200 MG TAB PO SCH (09:00)
[2021-07-31] MEDS: METOPROLOL SUCCINATE (ER) 50 MG TAB.ER.24H PO SCH (20:18)
[2021-07-31] MEDS: AMIODARONE 200 MG TAB PO SCH (21:27)
[2021-08-01] MEDS: ASPIRIN 81 MG PO SCH (07:16)
[2021-08-01] MEDS: PANTOPRAZOLE 40 MG TABLET PO SCH (07:16)
[2021-08-01] MEDS: AMIODARONE 200 MG TAB PO SCH (07:16)
[2021-08-01] MEDS: APIXABAN 5 MG TAB PO SCH ×2 (07:17→20:43)
[2021-08-01] MEDS: METOPROLOL SUCCINATE (ER) 100 MG TAB.ER.24H PO SCH (07:17)
[2021-08-01] MEDS: ACETAMINOPHEN TAB 325 MG TAB PO PRN ×3 (07:18→20:42)
[2021-08-01] MEDS ORDERED: FUROSEMIDE 10 MG/ML 4 ML VIAL IV STA (10:42)
--- NOTE | 2021-08-01 11:02 | P.CRDCN ---
History of Present Illness Consult date: 08/01/21 Requesting physician: Lisseth Mills Reason for Consult (text): hocm Chief complaint: cough, fatigue History of present illness: Is a pleasant 71-year-old gentleman with a history of hypertrophic obstructive cardiomyopathy was admitted last month after having a syncopal episode and found to have ventricular tachycardia. He underwent cardiac catheterization at that time which showed normal coronaries, a limited left-sided filling pressures and peak to peak resting LVOT gradient of 79 mmHg. He subsequently underwent ICD placement and was initiated on amiodarone and his beta alicia dose was increased. Following discharge he presented again with left upper extremity DVT and was initiated on Eliquis. He presented to the emergency department again with complaints of I persistent cough, nonproductive, ongoing since the after which time he [facility] by [facility] primary care physician and was also seen by Dr. Bowman in our offi ce. Upon presentation chest x-ray was clear. NT proBNP was elevated at over 8000 which was previously around 3000 a month ago. He's had no complaints of dyspnea on exertion but does complain of a decreased appetite and significant fatigue requiring naps during the day with the decreased activity tolerance. He denies any complaints of lower extremity edema but does have mild edema on examination. She is scheduled on Tuesday for a AICD interrogation in our office. He is also scheduled on Tuesday the be evaluated by power plant operator at [facility]. He is currently on Eliquis 5 mg by mouth twice a day, metoprolol succinate 100 mg in the morning and 50 mg at at bedtime, aspirin 81 mg daily, amiodarone 200 mg by mouth twice a day. Past Medical History Past Medical History: Deep Vein Thrombosis (DVT), Hypertension, Osteoarthritis (OA) Additional Past Medical History / Comment(s): pt was at [facility] today with th ickening left heart wall-Cardiomyopathy for the past 10 years approx. Last US was new finding, and they did a MRI. Pt is supposed to follow with power plant operator with [facility]; melanoma CA History of Any Multi-Drug Resistant Organisms: None Reported Past Surgical History: Heart Catheterization, Hernia Repair Additional Past Surgical History / Comment(s): spinal fusion 1999, defibrillator placed 07/07/21; hernia repair; melanoma removed from right arm Past Anesthesia/Blood Transfusion Reactions: No Reported Reaction Past Psychological History: No Psychological Hx Reported Smoking Status: Former smoker Past Alcohol Use History: Occasional Past Drug Use History: None Reported - Past Family History Father Family Medical History: Hyperlipidemia Medications and Allergies Home Medications Medication Instructions Recorded Confirmed Type Aspirin EC [Ecotrin Low Dose] 81 mg PO DAILY 07/03/21 07/30/21 History Cholecalciferol [Vitamin D3 (25 25 mcg PO DAILY 07/03/21 07/30/21 History Mcg = 1000 Iu)] Multivit-Min/FA/Lycopen/Lutein 1 tab PO DAILY 07/03/21 07/30/21 History [Centrum Silver Men Tablet] Omeprazole [PriLOSEC] 20 mg PO DAILY 07/03/21 07/30/21 History Metoprolol Succinate (ER) [Toprol 100 mg PO DAILY #90 tab 07/07/21 07/30/21 Rx XL] Amiodarone [Cordarone] See Taper PO DIRECTED 07/11/21 07/30/21 History Metoprolol Succinate (ER) [Toprol 50 mg PO HS 07/11/21 07/30/21 History XL] Apixaban [Eliquis] 5 mg PO BID 30 Days #60 tab 07/13/21 07/30/21 Rx Allergies Allergy/AdvReac Type Severity Reaction Status Date / Time nitroglycerin Allergy SYNCOPE Verified 07/30/21 21:10 Physical Exam Vitals: Vital Signs Temp Pulse Resp BP Pulse Ox 08/01/21 07:49 98.4 F 70 18 131/81 96 08/01/21 01:56 98.5 F 65 17 143/74 94 L 07/31/21 19:35 98.3 F 66 106/65 96 07/31/21 14:00 97.6 F 68 14 108/68 97 Intake and Output 07/31/21 08/01/21 08/01/21 22:59 06:59 14:59 Other: Voiding Method Toilet # Voids 3 3 Weight 96.2 kg PHYSICAL EXAMINATION: This is a 71-year-old gentleman in no apparent distress at the time of my examination. VITAL SIGNS: Blood pressure 131/81, heart rate 70, respirations 18, temp 98.4F. Patient is 96 % on room air. HEENT: Head is atraumatic, normocephalic. Pupils are equal, round. Sclerae anicteric. Conjunctivae are clear. Mucous membranes of the mouth are moist. Neck is supple. There is no elevated jugular venous pressure. No carotid bruit is heard. CHEST EXAMINATION: Clear to auscultation bilaterally. No wheezes rales or rhonchi. Respirations even and nonlabored. HEART EXAMINATION: Heart regular, positive S1 and S2. 3/6 systolic murmur. ABDOMEN: Soft, nontender. Bowel sounds are heard. No organomegaly noted. EXTREMITIES: 2+ peripheral pulses with evidence of mild lower extremity peripheral edema and no calf tenderness noted. NEUROLOGIC EXAMINATION: Patient is awake, alert and oriented x3. Results 07/30/21 19:40 07/30/21 19:40 Current Medications Generic Name Dose Route Start Last Admin Trade Name Freq PRN Reason Stop Dose Admin Acetaminophen 650 mg 07/31/21 00:12 08/01/21 07:18 Acetaminophen Tab 325 Mg Tab PO 650 mg Q6HR PRN Administration Mild Pain or Fever > 100.5 Hydrocodone Bitart/Acetaminophen 1 each 07/31/21 00:12 Hydrocodone/Apap 5-325mg 1 Each Tab PO Q4HR PRN Moderate Pain Alprazolam 0.25 mg 07/31/21 00:12 Alprazolam 0.25 Mg Tab PO Q6HR PRN Anxiety Amiodarone HCl 200 mg 08/02/21 09:00 Amiodarone 200 Mg Tab PO DAILY SCOTT Apixaban 5 mg 07/31/21 09:00 08/01/21 07:17 Apixaban 5 Mg Tab PO 5 mg BID SCOTT Administration Protocol Furosemide 40 mg 08/01/21 10:42 Furosemide 10 Mg/Ml 4 Ml Vial IV 08/01/21 10:43 ONCE STA Furosemide 20 mg 08/02/21 09:00 Furosemide 20 Mg Tab PO DAILY SCOTT Metoprolol Succinate 50 mg 07/31/21 21:00 07/31/21 20:18 Metoprolol Succinate (Er) 50 Mg Tab.Er.24h PO 50 mg HS SCOTT Administration Metoprolol Succinate 100 mg 07/31/21 09:00 08/01/21 07:17 Metoprolol Succinate (Er) 100 Mg Tab.Er.24h PO 100 mg DAILY SCOTT Administration Naloxone HCl 0.2 mg 07/31/21 00:12 Naloxone 0.4 Mg/Ml 1 Ml Vial IV Q2M PRN Opioid Reversal Ondansetron HCl 4 mg 07/31/21 00:12 Ondansetron 4 Mg/2 Ml Vial IVP Q8HR PRN Nausea And Vomiting Oxycodone/Acetaminophen 1 each 07/31/21 00:12 Oxycodone-Apap 5-325mg 1 Each Tab PO Q4HR PRN Severe Pain Pantoprazole Sodium 40 mg 07/31/21 07:30 08/01/21 07:16 Pantoprazole 40 Mg Tablet PO 40 mg [id number] [facility] Administration Intake and Output 07/31/21 08/01/21 08/01/21 22:59 06:59 14:59 Other: Voiding Method Toilet # Voids 3 3 Weight 96.2 kg 07/30/21 19:40 07/30/21 19:40 Assessment and Plan Assessment: #1 hypertrophic obstructive cardiomyopathy #2 is acute diastolic congestive heart failure likely secondary to above #3 ventricular tachycardia status post AICD placement #4 left upper extremity DVT currently on Eliquis Plan: From power plant operator perspective we will give the patient a dose of Lasix 40 mg IV push 1. We will add Lasix 20 mg by mouth daily starting tomorrow. We will decrease amiodarone to 200 mg daily. Discontinue aspirin. He and his are anxious for him to be discharged. From our perspective we would prefer patient stays until tomorrow morning for reevaluation of his symptoms however depending on his response to Lasix may be discharged home later today. He will keep his follow-ups. He will have labs drawn as an outpatient. The above dictated assessment and findings were discussed with signing physician. The impression and plan of care have been directed as dictated. Lynn Huff, Nurse Practitioner, acting as scribe for signing physician.
--- NOTE | 2021-08-01 17:44 | P.PN ---
Subjective Progress Note Date: 08/01/21 Principal diagnosis: HOCM Still having a cough, no sob or pain. No fevers. Still feeling weak. Objective - Vital Signs Vital signs: Vital Signs Temp 97.4 F L 08/01/21 14:00 Pulse 62 08/01/21 14:00 Resp 18 08/01/21 14:00 BP 91/55 08/01/21 14:00 Pulse Ox 97 08/01/21 14:00 Intake & Output 07/31/21 08/01/21 08/01/21 18:59 06:59 18:59 Weight 96.2 kg Other: Voiding Method Toilet # Voids 3 3 - Exam Constitutional: No acute distress, conversant, pleasant Eyes:Anicteric sclerae, moist conjunctiva, no lid-lag, PERRLA, ENMT: Oropharynx clear, no erythema, exudates Neck: Supple, FROM, no masses, or JVD, No carotid bruits, No thyromegaly Lungs: Clear to auscultation, Clear to percussion, Normal respiratory effort, no accessory muscle use Cardiovascular: Heart regular in rate and rhythm, No murmurs, gallops, or rubs, trace peripheral edema Abdominal: Soft, Nontender, no guarding, rebound or rigidity, Normoactive bowel sounds, No hepatomegaly, No splenomegaly, No palpable mass Skin: Normal temperature, tone, texture, turgor, no induration, No subcutaneous nodules, No rash, lesions, No ulcers Extremities: No digital cyanosis, No clubbing, Pedal pulses intact and symmetrical, Radial pulses intact and symmetrical, No calf tenderness Psychiatric: Alert and oriented to person, place and time, appropriate affect, intact judgement Neuro: Muscles Strength 5/5 in all 4 extremities, Sensation to light touch grossly present throughout, Cranial nerves II-XII grossly intact, no focal sensory deficits - Labs CBC & Chem 7: 07/30/21 19:40 07/30/21 19:40 Assessment and Plan Plan: Generalized weakness Nonproductive cough HOCM status post episodes of V. tach and unresponsiveness status post defibrillator insertion Subacute DVT on Eliquis Plan Seen by cardiology Started on lasix Resume home medications metoprolol amiodarone Resume Eliquis for acute DVT DVT prophylaxis On AC.
[2021-08-01] MEDS: METOPROLOL SUCCINATE (ER) 50 MG TAB.ER.24H PO SCH (20:43)
[2021-08-02] MEDS: PANTOPRAZOLE 40 MG TABLET PO SCH (07:08)
[2021-08-02] MEDS: ACETAMINOPHEN TAB 325 MG TAB PO PRN (07:08)
[2021-08-02] MEDS: APIXABAN 5 MG TAB PO SCH (07:08)
[2021-08-02] MEDS: METOPROLOL SUCCINATE (ER) 100 MG TAB.ER.24H PO SCH (07:09)
[2021-08-02 08:14] VITALS: BP 111/67; PULSE 65; RESP 18; TEMP 98.3
[2021-08-02] MEDS ORDERED: FUROSEMIDE 20 MG TAB PO SCH (09:00)
[2021-08-02] MEDS ORDERED: AMIODARONE 200 MG TAB PO SCH (09:00)
[2021-08-02 09:28] LABS: Basophils # (A) 0.06 X 10*3/uL (0.00-0.10); Basophils % (A) 0.5 %; Eosinophils # (A) 0.09 X 10*3/uL (0.04-0.35); Eosinophils % (A) 0.8 %; HCT 35.9 % (39.6-50.0); HGB 11.2 g/dL (13.0-17.0); Immature Grans, Automated 0.5 %; Lymphocytes % (A) 7.8 %; MCH 28.4 pg (27.0-32.0); MCHC 31.2 g/dL (32.0-37.0); MCV 91.1 fL (80.0-97.0); Mean Platelet Volume 11.6 fL (9.5-12.2); Monocytes % (A) 5.2 %; NRBC Per 100 WBC 0 /100 WBCS (0.0-0.0); Neutrophils # (A) 9.82 X 10*3/uL (1.80-7.70); Neutrophils % (A) 85.2 %; Platelet Count 173 X 10*3/uL (140-440); RBC 3.94 X 10*6/uL (4.40-5.60); RDW 13.4 % (11.5-14.5); WBC 11.53 X 10*3/uL (4.50-10.00)
[2021-08-02 09:33] LABS: African American GFR (CKD) 66.4 (60.0-200.0); Albumin 3.1 g/dL (3.8-4.9); Albumin/Globulin Ratio 1.25 (1.60-3.17); Anion Gap 12.7 mmol/L (10.00-18.00); BUN/Creat Ratio 13.78 Ratio (12.00-20.00); Blood Urea Nitrogen 17.5 mg/dL (9.0-27.0); Calcium 8.7 mg/dL (8.7-10.3); Carbon Dioxide 24.3 mmol/L (20.0-27.5); Globulin 2.5 g/dL (1.6-3.3); Non-African American GFR(CKD) 57.3 (60.0-200.0); Total Bilirubin 0.5 mg/dL (0.30-1.20); Total Protein 5.6 g/dL (6.2-8.2)
--- NOTE | 2021-08-02 14:53 | PN ---
PROGRESS NOTE FOLLOW-UP NOTE: This is a 71-year-old gentleman with history of hypertrophic cardiomyopathy, status post AICD, and hypertension who is admitted to the hospital with cough. We gave him Lasix. He also had mild leg edema and elevated BNP. He is feeling better this morning. Cough has improved. Patient is currently on amiodarone 200 mg daily, Eliquis 5 b.i.d., Lasix 20 daily, Toprol-XL. On exam, comfortable at rest. Vital signs are stable. There is no jugular venous distention. Chest exam reveals good air entry bilaterally. Heart exam reveals first and second heart sounds. Grade 3/6 ejection systolic murmur in the aortic area. Abdomen is soft. Examination of extremities did not reveal any edema. Labs show a potassium of 4. Creatinine is 1.3. Hemoglobin is 11.2. ASSESSMENT: 1. Hypertrophic obstructive cardiomyopathy. 2. Cough; could be due to acute diastolic heart failure. 3. Ventricular tachycardia, status post AICD. 4. Left upper extremity deep vein thrombosis. PLAN: Patient is doing well. He will be discharged home and follow up with Dr. Bowman in the office on Tuesday and keep his appointment at [facility]. MMLEXIEL / ANCELMON: [id number] /
--- NOTE | 2021-08-02 15:26 | P.DS ---
Providers Date of admission: 07/31/21 00:54 Expected date of discharge: 08/02/21 Attending physician: Lisseth Mills MD Consults: 07/31/21 12:27 Consult Physician Routine Consulting Provider: Jose Patrick Consult Reason/Comments: randm Do you want consulting provider notified?: Yes Primary care physician: Physician Nonstaff Hospital Course: 71-year-old gentleman with a history of hypertrophic obstructive cardiomyopathy was admitted last month after having a syncopal episode and found to have ventricular tachycardia. He underwent cardiac catheterization at that time which showed normal coronaries. He subsequently underwent ICD placement and was initiated on amiodarone and his beta alicia dose was increased. Following discharge he presented again with left upper extremity DVT and was initiated on Eliquis. He presented to the emergency department again with complaints of persistent cough, nonproductive, associated with fatigue and decreased appetite. He's had no complaints of dyspnea on exertion or orthopnea. He is scheduled on Tuesday the be evaluated by aircraft maintenance instructor at [facility]. He is currently on Eliquis 5 mg by mouth twice a day, metoprolol succinate 100 mg in the morning and 50 mg at at bedtime, aspirin 81 mg daily, amiodarone 200 mg by mouth twice a day. Upon presentation chest x-ray was clear. However he did have trace pedal edema, NT proBNP was elevated at over 8000 which was previously around 3000 a month ago. Patient was subsequently admitted, was started on IV Lasix. He was evaluated by cardiology who agreed with Lasix. He did feel significantly better after the Lasix. His cough and fatigue have both improved. The legs edema has improved. He will be discharged on oral Lasix. Will need to follow up with cardiology in the office. He was discharged in stable condition. Plan - Discharge Summary New Discharge Prescriptions: New Furosemide [Lasix] 20 mg PO DAILY 30 Days #30 tab Continue Omeprazole [PriLOSEC] 20 mg PO DAILY Multivit-Min/FA/Lycopen/Lutein [Centrum Silver Men Tablet] 1 tab PO DAILY Cholecalciferol [Vitamin D3 (25 Mcg = 1000 Iu)] 25 mcg PO DAILY Aspirin EC [Ecotrin Low Dose] 81 mg PO DAILY Metoprolol Succinate (ER) [Toprol XL] 100 mg PO DAILY #90 tab Amiodarone [Cordarone] See Taper PO DIRECTED Metoprolol Succinate (ER) [Toprol XL] 50 mg PO HS Apixaban [Eliquis] 5 mg PO BID 30 Days #60 tab Discharge Medication List Aspirin EC [Ecotrin Low Dose] 81 mg PO DAILY 07/03/21 [History] Cholecalciferol [Vitamin D3 (25 Mcg = 1000 Iu)] 25 mcg PO DAILY 07/03/21 [History] Multivit-Min/FA/Lycopen/Lutein [Centrum Silver Men Tablet] 1 tab PO DAILY 07/03/21 [History] Omeprazole [PriLOSEC] 20 mg PO DAILY 07/03/21 [History] Metoprolol Succinate (ER) [Toprol XL] 100 mg PO DAILY #90 tab 07/07/21 [Rx] Amiodarone [Cordarone] See Taper PO DIRECTED 07/11/21 [History] Metoprolol Succinate (ER) [Toprol XL] 50 mg PO HS 07/11/21 [History] Apixaban [Eliquis] 5 mg PO BID 30 Days #60 tab 07/13/21 [Rx] Furosemide [Lasix] 20 mg PO DAILY 30 Days #30 tab 08/02/21 [Rx] Follow up Appointment(s)/Referral(s): Nonstaff,Physician [Primary Care Provider] - 1-2 days
== END 2021-08-02 15:54 | disposition home or self-care (01) ==
LOC: EC 18:25 → 6NMEDSUR 07-31 00:54 → 4SSUR 07-31 04:17
PROVIDERS: ADMIT Internal Medicine; ATTEND Internal Medicine
DX: R53.1 Weakness (principal); R05.3 Chronic cough; I42.1 Obstructive hypertrophic cardiomyopathy; I11.0 Hypertensive heart disease with heart failure; I50.31 Acute diastolic (congestive) heart failure; I47.2 Ventricular tachycardia; I82.622 Acute embolism and thrombosis of deep veins of left upper extremity; I42.2 Other hypertrophic cardiomyopathy; Z20.822 Contact with and (suspected) exposure to COVID-19; R79.89 Other specified abnormal findings of blood chemistry; M19.90 Unspecified osteoarthritis, unspecified site; E66.9 Obesity, unspecified; Z68.28 Body mass index [BMI] 28.0-28.9, adult; Z79.82 Long term (current) use of aspirin; Z79.01 Long term (current) use of anticoagulants; Z79.899 Other long term (current) drug therapy; Z88.8 Allergy status to other drugs, medicaments and biological substances; Z98.1 Arthrodesis status; Z95.810 Presence of automatic (implantable) cardiac defibrillator; Z85.820 Personal history of malignant melanoma of skin; Z87.891 Personal history of nicotine dependence; Z86.718 Personal history of other venous thrombosis and embolism
CPT/HCPCS: 99285; 96374; 36415; 93005; 83880; 80053; 80048; 82550; 83605; 84484; 85025 ×2; 86140; 87636; 71046; G0378 ×4; J1940